=== PATIENT | female | born 1945 | race Caucasian/White ===

== ENCOUNTER → 2017-04-09 12:52 | Outpatient (CLI) | payer MEDICARE, BC, SELFPAY ==
[2017-04-09 11:59] VITALS: BP 134/60; BMI 36.8
[2017-04-09 13:49] LABS: Anion Gap 8 (5-15); BUN 15 mg/dL (7-18); BUN/Creat Ratio 16.6 RATIO (10-20); Calcium,Total 9.2 mg/dL (8.5-10.1); Chloride 104 mmol/L (98-107); EST Glomerular Filtration Rate 65 mL/min (>60); Est Glom Filt Rate - Afr Amer 78 mL/min (>60); Glucose 112 mg/dL (74-106); Potassium 4.4 mmol/L (3.5-5.1); Sodium Level 137 mmol/L (136-145)
[2017-04-09 13:59] LABS: BNP,B-Type NATRIURETIC PEPTIDE 71.1 pg/mL (0-100)
== END ==
PROVIDERS: Family Provider Internal Medicine; PCP Internal Medicine; Visit Provider Internal Medicine Cardiovascular Disease
DX: R06.02 Shortness of breath (principal)
CPT/HCPCS: 36415; 80048; 83880

== ENCOUNTER → 2017-05-07 13:00 | Outpatient (CLI) | payer MEDICARE, BC, SELFPAY ==
[2017-04-09 11:59] VITALS: BP 134/60; BMI 36.8
--- NOTE | 2017-05-07 13:04 | ECHOD_ITS ---
Reason For Study: DYSPNEA Procedure This was a 2D Doppler, Color Flow transthoracic echocardiogram. Exam performed in department. Left Ventricle Normal LV size. Left ventricular systolic function is normal. The estimated ejection fraction is 60 %. Transmitral and pulmonary venous doppler flow suggestive of elevated left atrial pressure. Transmitral diastolic flow velocities suggest mild (stage 1) diastolic dysfunction (reversed pattern). No regional wall motion abnormalities noted. Right Ventricle Normal RV size. Normal systolic function. Atria Normal left atrium. Normal right atrium. Mitral Valve Normal mitral valve. Tricuspid Valve Normal tricuspid valve. Mild to moderate (1-2+) tricuspid valve insufficiency. Pulmonary artery systolic pressure is 62 mmHg. Moderate pulmonary hypertension. Aortic Valve Normal aortic valve. Trisinus/trileaflet aortic valve. Pulmonic Valve Normal pulmonic valve. Great Vessels Normal aortic root. The pulmonary artery is normal size. Normal inferior vena cava. Pericardium/Pleural No pericardial effusion. Medication 22 gauge I.V. with prn adaptor inserted into right arm. Diluted definity 3ml given slow IV push to enhance endocardial definition. MMode/2D Measurements & Calculations LVIDd: 5.0 cm IVSd: 0.97 cm Ao root diam: 2.8 cm LVIDs: 3.4 cm LVPWd: 0.99 cm LA dimension: 3.7 cm RVDd: 3.0 cm FS: 33.1 % LAV(MOD-bp): 54.4 ml EDV(MOD-sp4): 90.9 ml EDV(MOD-sp2): 68.6 ml LAV(MOD-bp) Indexed: 26.5 ml/m2 ESV(MOD-sp4): 24.5 ml EF(MOD-sp2): 63.3 % LAV(MOD-sp2): 44.4 ml EF(MOD-sp4): 73.1 % LAV(MOD-sp4): 59.7 ml SV(MOD-sp4): 66.4 ml SV(MOD-sp2): 43.4 ml LA A4 area: 20.6 cm2 RA A4 area: 18.2 cm2 Doppler Measurements & Calculations MV E max precious: 63.8 cm/sec Ao V2 max: 163.0 cm/sec LV V1 max: 135.0 cm/sec MV A max precious: 92.3 cm/sec Ao max P.6 mmHg LV V1 max P.3 mmHg MV E/A: 0.69 TR max precious: 379.0 cm/sec TR max P.5 mmHg Interpretation Summary Normal LV size. Left ventricular systolic function is normal. The estimated ejection fraction is 60 %. Transmitral and pulmonary venous doppler flow suggestive of elevated left atrial pressure. Transmitral diastolic flow velocities suggest mild (stage 1) diastolic dysfunction (reversed pattern). Moderate pulmonary hypertension. Ordering Physician: Jonatan Barrios Referring Physician: CELINA SIDDIQUI Performed By: Nickie Sales, RDCS, RVT
== END ==
PROVIDERS: Family Provider Internal Medicine; PCP Internal Medicine; Visit Provider Internal Medicine Cardiovascular Disease
DX: R07.9 Chest pain, unspecified (principal); R06.00 Dyspnea, unspecified
CPT/HCPCS: 93306; Q9957; A4216; C8929

== ENCOUNTER → 2017-09-27 12:19 | Outpatient (CLI) | payer MEDICARE, BC, SELFPAY ==
[2017-09-27 13:53] VITALS: PULSE 100; PULSE 101; PULSE 102; PULSE 62; PULSE 71; PULSE 92; PULSE 94; O2SAT 95; O2SAT 96; O2SAT 97; O2SAT 98
--- NOTE | 2017-09-27 15:23 | WT_ITS ---
PSN 6 Minute Walk Test - 6 Minute Walk Test 6 Minute Walk Test: 6 Minute Walk Test PSN:6-Minute Walk Test Start: 09/27/17 13: 53 Freq: Status: Active Protocol: RESP.6MINW Document 09/27/17 13:53 [facility] (Rec: 09/27/17 14:24 [facility] [id number]) 6 Minute Walk Test Date Performed 09/27/17 Time Performed 12:30 Height 5 ft 5.5 in Weight: 98.43 kg Weight in Pounds 217.[address]: Bessy Lundberg FIO2 (% Oxygen) 21 Assistive device used: None Pre-test Oxygen Delivery Method Room Air Pulse Ox (%) 95 Pulse Rate (60-100 beats/min) 71 Dyspnea Mohamud Scale (0-10) 1 1st minute Oxygen Delivery Method Room Air Pulse Ox (%) 95 Pulse Rate (60-100 beats/min) 92 Dyspnea Mohamud Scale (0-10) 2 Reported Symptoms Increased Work of Breathing 2nd minute Oxygen Delivery Method Room Air Pulse Ox (%) 98 Pulse Rate (60-100 beats/min) 94 Dyspnea Mohamud Scale (0-10) 2 Reported Symptoms Increased Work of Breathing 3rd minute Oxygen Delivery Method Room Air Pulse Ox (%) 97 Pulse Rate (60-100 beats/min) 100 Dyspnea Mohamud Scale (0-10) 3 Reported Symptoms Increased Work of Breathing 4th minute Oxygen Delivery Method Room Air Pulse Ox (%) 98 Pulse Rate (60-100 beats/min) 102 H Dyspnea Mohamud Scale (0-10) 3 Reported Symptoms Increased Work of Breathing 5th minute Oxygen Delivery Method Room Air Pulse Ox (%) 98 Pulse Rate (60-100 beats/min) 101 H Dyspnea Mohamud Scale (0-10) 3 Reported Symptoms Increased Work of Breathing 6th minute Oxygen Delivery Method Room Air Pulse Ox (%) 97 Pulse Rate (60-100 beats/min) 102 H Dyspnea Mohamud Scale (0-10) 3 Reported Symptoms Increased Work of Breathing Post-test Oxygen Delivery Method Room Air Pulse Ox (%) 96 Pulse Rate (60-100 beats/min) 62 Dyspnea Mohamud Scale (0-10) 1 Full Laps Walked 13 Partial Lap, Number of Tiles Walked 36 Total Distance Walked (ft) 803 - Interpretation Interpretation: The patient was able to ambulate 803 feet over the course of 6 minutes on room air with no assistive devices or breaks taken. Patient experienced no significant desaturation and had a peak heart rate of 102 bpm. These findings are consistent with a musculoskeletal limitation exercise tolerance. - Recommendations Recommendations: No supplemental oxygen is indicated at this time.
== END ==
PROVIDERS: Family Provider Internal Medicine; PCP Internal Medicine; Visit Provider Nurse Practitioner Acute Care
DX: R06.02 Shortness of breath (principal)
CPT/HCPCS: 94618

== ENCOUNTER → 2017-10-02 10:04 | Outpatient (CLI) | payer MEDICARE, BC, SELFPAY ==
--- NOTE | 2017-10-02 13:57 | PFT ---
INTRODUCTION: The patient is a 72-year-old female that presents for pulmonary function testing secondary to a diagnosis of shortness of breath. Respiratory therapy reports good patient effort. Bronchodilators were used during testing. INTERPRETATION: Forced expiration spirometry demonstrates no evidence of a large airways obstructive ventilatory defect. There was no significant response to aerosolized bronchodilators. Spirograms are of good quality do not plateau indicating slow emptying of the lungs. Body plethysmography was performed and reveals a decreased TLC to 4.09 L, 80% of predicted, indicative of a mild restrictive ventilatory defect. The remainder of the lung volumes are symmetrically reduced. Diffusing capacity by single breath CO is mildly reduced at 67% of predicted. IMPRESSION: These pulmonary function studies demonstrate the presence of a mild restrictive ventilatory defect with a symmetric reduction in diffusing capacity.
== END ==
PROVIDERS: Family Provider Internal Medicine; PCP Internal Medicine; Visit Provider Nurse Practitioner Acute Care
DX: R06.02 Shortness of breath (principal)
CPT/HCPCS: 94060; 94726; 94729

== ENCOUNTER → 2017-10-18 13:56 | Outpatient (CLI) | payer MEDICARE, BC, SELFPAY ==
[2017-10-18 15:53] LABS: BNP,B-Type NATRIURETIC PEPTIDE 66.3 pg/mL (0-100)
== END ==
PROVIDERS: Family Provider Internal Medicine; PCP Internal Medicine; Visit Provider Physician Assistant Medical
DX: R06.02 Shortness of breath (principal)
CPT/HCPCS: 36415; 83880

== ENCOUNTER → 2018-05-14 13:07 | Outpatient (CLI) | payer MEDICARE, BC, SELFPAY ==
[2018-04-25 10:04] VITALS: BMI 36.4
--- NOTE | 2018-05-14 13:08 | ECHOD_ITS ---
Version 2 Reason For Study: [HTN Procedure This was a 2D Doppler, Color Flow transthoracic echocardiogram. Exam performed in department. Left Ventricle Normal LV size. Left ventricular systolic function is normal. The estimated ejection fraction is 55 %. Stage 1 diastolic dysfunction. No regional wall motion abnormalities noted. Right Ventricle Normal RV size. Normal systolic function. Atria Normal left atrium. Normal right atrium. Mitral Valve Normal mitral valve. Trivial mitral valve insufficiency. Tricuspid Valve Normal tricuspid valve. Mild (1+) tricuspid valve insufficiency. Pulmonary artery systolic pressure is 32 mmHg. Aortic Valve The aortic valve is not well visualized. Pulmonic Valve Normal pulmonic valve. Great Vessels Normal aortic root. The pulmonary artery is normal size. Normal inferior vena cava. Pericardium/Pleural No pericardial effusion. MMode/2D Measurements & Calculations LVIDd: 4.8 cm IVSd: 1.1 cm Ao root diam: 2.7 cm LVIDs: 3.5 cm LVPWd: 1.1 cm RVDd: 3.4 cm FS: 28.5 % LAV(MOD-bp): 59.0 ml LA A4 area: 20.2 cm2 LA dimension(2D): 3.8 cm LAV(MOD-bp) Indexed: 28.8 ml/m2 LAV(MOD-sp2): 58.5 ml LAV(MOD-sp4): 57.0 ml RA A4 area: 19.6 cm2 Doppler Measurements & Calculations MV E max dawit: 73.2 cm/sec Lat Peak E' Dawit: 9.3 cm/sec Med Peak E' Dawit: 7.4 cm/sec MV A max dawit: 90.0 cm/sec E/E' lat: 7.9 E/E' med: 9.9 MV E/A: 0.81 Ao V2 max: 165.1 cm/sec LV V1 max: 127.6 cm/sec PA V2 max: 101.6 cm/sec Ao max P.9 mmHg LV V1 max P.5 mmHg TR max dawit: 261.9 cm/sec TR max P.4 mmHg Interpretation Summary Normal LV size. Left ventricular systolic function is normal. The estimated ejection fraction is 55 %. Stage 1 diastolic dysfunction. Mild (1+) tricuspid valve insufficiency. Pulmonary artery systolic pressure is 32 mmHg. The pulmonary pressures are much improved Ordering Physician: Jonatan Barrios Referring Physician: Darby Tobias Performed By: eJane Harris RDCS, RVT
== END ==
PROVIDERS: Family Provider Internal Medicine; PCP Internal Medicine; Referring Provider Internal Medicine Cardiovascular Disease; Visit Provider Internal Medicine Cardiovascular Disease
DX: I27.21 Secondary pulmonary arterial hypertension (principal)
CPT/HCPCS: 93306

== ENCOUNTER 2019-01-01 09:51 | Inpatient (IN) | payer MEDICARE, BC, SELFPAY ==
[2018-04-25 10:04] VITALS: BMI 36.4
[2019-01-01] VITALS (12 sets, daily range): BP systolic 126–164; BP diastolic 73–85; PULSE 78–85; RESP 16–20; TEMP 36.6–36.7; O2SAT 86–95; BMI 35.7; BMI 36.3; BMI 36.4
--- NOTE | 2019-01-01 10:02 | CT_ITS ---
STUDY: CTA CHEST REASON FOR EXAM: Female, 73 years old. Shortness of breath, history of pulmonary embolism. RADIATION DOSAGE (If Supplied By Facility): CTDIvol = ( 14.83 ) mGy, DLP = ( 490.91 ) mGycm TECHNIQUE: The examination was performed with the intravenous administration of IV Isovue 370 75. Post-processing of the angiographic images was performed, with multiplanar reformation and 3D reconstruction. Individualized dose optimization techniques were used for this CT. COMPARISON: 02/23/2017 FINDINGS: Normal enhancement of the main pulmonary artery and right and left pulmonary arteries. Normal enhancement of the bilateral peripheral pulmonary arteries. Multiple filling defects within segmental branches throughout both lungs involving the upper and lower lobes consistent with pulmonary emboli. There is atherosclerotic calcification of the aortic arch with tortuosity. There is no demonstrated aortic dissection. Normal heart and pericardium. There are calcifications of the coronary arteries. Normal mediastinum. Normal hilar regions. Normal visualized trachea and bronchi. The lungs are well expanded. Interval development of an 8 mm thick related nodule in the anterior right lower lobe the lungs on image 129 worrisome for bronchial carcinoma in correlation with PET CT scan is recommended. Follow-up CT the chest is recommended in 6 months document stability. Normal pleura. Normal chest wall structures. Normal osseous structures. Diffusely decreased attenuation the hepatic parenchyma consistent with fatty infiltration. CT/CTA Chest W/WO Contrast IMPRESSION: 1. Positive for multiple segmental and subsegmental pulmonary emboli bilaterally. 2. Interval development of 8 mm spiculated nodule in the anterior right lower lobe the lungs worrisome for bronchial carcinoma in correlation with PET CT scan is recommended. Follow-up CT the chest is recommended in 6 months document stability to 3. Fatty infiltration liver. Electronically Signed: Bob Osborn MD at 11:34 EDT Tel , Service support ,
--- NOTE | 2019-01-01 10:02 | EKG12_ITS ---
Test Reason : SOB Blood Pressure : / mmHG Vent. Rate : 080 BPM Atrial Rate : 080 BPM P-R Int : 184 ms QRS Dur : 088 ms QT Int : 408 ms P-R-T Axes : 062 -84 094 degrees QTc Int : 470 ms Normal sinus rhythm Left axis deviation Poor R Wave Progression Inferior infarct , age undetermined Abnormal ECG Confirmed by CHAY CHILDRESS, GEETA ([id number]), supervising editor trailer BERTHA PHILIP ([id number]) on 01/05/2019 9:26:02 AM Referred By: Kranthi Agudelo Confirmed By:GEETA CARTWRIGHT MD
--- NOTE | 2019-01-01 10:15 | ED.DCSUM_ITS ---
- ER Visit Summary Date of Service: 01/01/19 Chief Complaint: Shortness of breath History of Present Illness: The patient is a 73 F who presents with shortness of breath. She states is been getting worse gradually over the past 3 days. Is worse with exertion. Gets better with rest. She does not wear home oxygen. She denies a cough or rhinorrhea. No fevers. She does have a fullness in her chest. She denies any leg swelling. She does have a history of PE and at that time she was diagnosed with polycythemia. She was on Coumadin, but is not on this anymore. She is only on a baby aspirin a day. Denies any history of coronary disease but does have hypertension and high cholesterol. She is a non- smoker. Physical Examination: Vital signs reviewed. HEENT exam unremarkable. Heart is regular rate and rhythm without murmurs. Lungs are clear to auscultation. Abdomen is soft and nontender. Extremities reveal no edema. Peripheral pulses are equal. Skin exam normal. Neurologic exam normal. Test Results: EKG is sinus rhythm with rate of 80. There are nonspecific ST and T wave changes. Laboratory studies show a hemoglobin of 15.1. Creatinine 1.21. Troponin is 0.054. BNP 355. CTA of the chest reveals bilateral pulmonary emboli. There is also a spiculated nodule which is concerning as well. Emergency Department Course and Treatment: The patient was 87% on room air so supplemental oxygen was placed. She does have bilateral pulmonary emboli. I will start her on Lovenox here in the ED. She did was on Coumadin because she could not afford any of the other newer generation anticoagulants. I discussed with the hospitalist and we will admit the patient due to hypoxia Treatment Plan: [] Disposition: Admit Impression: Bilateral PE, hypoxia, elevated troponin This note was generated with [employer] dictation software. It may contain incorrect words, spelling, and punctuation that were not noted in review of the chart p rior to signing ED Disposition - Plan for ED Patient: Referrals: Darby Tobias MD [Primary Care Provider] -
[2019-01-01 10:31] LABS: Absolute Lymphocyte Count 1.74 X10^3/uL (0.83-4.51); Absolute Neutrophil Count 7.1 X10^3/uL (2.0-7.7); Basophil# 0.05 X10^3/uL; Basophil% 0.5 % (0-1); Eosinophil# 0.39 X10^3/uL; Eosinophils% 3.9 % (0-5); Hemoglobin 15.1 g/dL (12.0-15.0); Lymphocyte # 1.74 X10^3/ul (4.0); Lymphocyte % 17.4 % (19-41); Mean Corp Hgb Conc 32.1 g/dL (32-36); Mean Corpuscular Hgb 35.4 pg (27.0-32.0); Mean Corpuscular Volume 110.1 fL (81-99); Mean Platelet Vol. 10.4 fl (6.2-12.0); Monocyte# 0.61 X10^3/uL; Monocyte% 6.1 % (0-10); NRBC Flagged by Analyzer 0 % (0-5); Neutrophil # 7.12 X10^3/uL (2.7-7.7); Neutrophil % 71.3 % (47-70); Platelet Count 294 K/mm3 (150-450); RBC Distribution Width CV 15.3 % (11.6-14.6); RBC Distribution Width SD 62.4 fl (35.1-43.9); Red Blood Count 4.27 M/mm3 (4.2-5.4)
[2019-01-01 10:49] LABS: Anion Gap 8 (5-15); BUN 23 mg/dL (7-18); Chloride 105 mmol/L (98-107); Creatinine, Serum 1.21 mg/dL (0.55-1.02); EST Glomerular Filtration Rate 46 mL/min (>60); Est Glom Filt Rate - Afr Amer 56 mL/min (>60); Estimated Creatinine Clearance 36.15 ml/min; Glucose 132 mg/dL (74-106); Potassium 3.9 mmol/L (3.5-5.1); Sodium Level 139 mmol/L (136-145)
[2019-01-01 10:53] LABS: BNP,B-Type NATRIURETIC PEPTIDE 355.7 pg/mL (0-100)
--- NOTE | 2019-01-01 11:55 | NURSING ---
DR WILCOX FOR DR TIAN
--- NOTE | 2019-01-01 11:58 | NURSING ---
PCU BILATERAL PE, HYPOXIA KOTSONIS
[2019-01-01] MEDS: Enoxaparin 100 MG/ML Syringe SC (12:09)
--- NOTE | 2019-01-01 12:29 | ECHOD_ITS ---
Reason For Study: EMBOLI Procedure This was a 2D Doppler, Color Flow transthoracic echocardiogram. The study was technically difficult. Exam performed portable in patient room. Left Ventricle Normal LV size. D shaped septum in systole and diastole. The estimated ejection fraction is 70 %. Diastolic function is indeterminate. Right Ventricle Severely dilated right ventricle. Severe global right ventricular systolic dysfunction. Atria Normal left atrium. The right atrium is mildly enlarged. No doppler evidence for ASD. Mitral Valve There is no mitral valve stenosis. No mitral valve insufficiency. Tricuspid Valve There is no tricuspid stenosis. Mild tricuspid valve insufficiency. Severe pulmonary hypertension. Pulmonary artery systolic pressure is 85 mmHg. Aortic Valve Trisinus/trileaflet aortic valve. There is no aortic stenosis. No aortic valve insufficiency. Pulmonic Valve There is no pulmonic valvular stenosis. No pulmonic valve insufficiency. Great Vessels Normal aortic root. Pericardium/Pleural No pericardial effusion. Medication Definity deferred due to elevated PAP. MMode/2D Measurements & Calculations LVIDd: 4.0 cm IVSd: 1.2 cm Ao root diam: 2.6 cm LVIDs: 3.0 cm LVPWd: 1.1 cm RVDd: 5.0 cm FS: 23.6 % LAV(MOD-bp): 30.0 ml LA A4 area: 12.7 cm2 LA dimension(2D): 3.3 cm LAV(MOD-bp) Indexed: 14.7 ml/m2 LAV(MOD-sp2): 32.9 ml LAV(MOD-sp4): 25.0 ml RA A4 area: 15.2 cm2 Time Measurements MV dec time: 0.20 sec Doppler Measurements & Calculations MV E max dawit: 42.2 cm/sec Lat Peak E' Dawit: 6.6 cm/sec Med Peak E' Dawit: 4.6 cm/sec MV A max dawit: 70.7 cm/sec E/E' lat: 6.3 E/E' med: 9.2 MV E/A: 0.60 Ao V2 max: 139.6 cm/sec LV V1 max: 121.2 cm/sec TR max dawit: 440.5 cm/sec Ao max P.8 mmHg LV V1 max P.9 mmHg TR max P.6 mmHg Interpretation Summary The estimated ejection fraction is 70 %. Diastolic function is indeterminate. Severely dilated right ventricle. Severe global right ventricular systolic dysfunction. Mild tricuspid valve insufficiency. Severe pulmonary hypertension. Pulmonary artery systolic pressure is 85 mmHg. Ordering Physician: Kranthi Agudelo Referring Physician: CELINA SIDDIQUI Performed By: Nickie Sales, RDCS, RVT
--- NOTE | 2019-01-01 12:38 | CASEMGMT ---
RN CM Assessment Presentation: Bilateral PE, Hypoxia Intro role of CM and purpose of RN CM assessment to patient and her daughter (works as Director, HIM @ [facility] [facility]). Demographics, PCP and Pharmacy verified. Pt states she was on Coumadin until 12/05/18 and has not been on anticoagulant since. Pt updated that Xarelto is in her pharmacy formulary with $45/30 day supply cost. Savings card can be given to pt also. PCP: Dr. Tobias, [facility] Specialists: Dr. Barrios, Cardiology; Dr. Arenas; Pulmonology Preferred Pharmacy: [facility]. Insurance: [employer] Prescription Benefit: yes.Call to [facility] ([facility] pharmacy co). Per Wyatt, pharmacy tapper helper- [facility] Retail pharmacy is [facility] ([facility]), Xarelto is Tier 3 medication with $45/30 day supply copay. Prescription limitation is 60 tablets for twice daily dosing, no prior authorization is needed. [employer] Medicare Rx Plan RxBin: [id number] RxPCN: [id number] RxGrp: [id number] LNOK: Daughter, Geetha Louise Living Arrangements: Lives in one story home, 1 step into home. Pt states she is independent in ADL, home care and no concerns re: care needs on dc. Transportation: Drives DME: has cane, Cpap. Denies using ambulatory assistive devices. No Home Oxygen prior to admission. If needed, pt states she prefers [facility]. Call to [facility] @ [facility]- they do service [facility]. HHC: none Patient DC goals: Home DC PLAN: Home. May need Home oxygen testing if continues on O2. Jessa MELENDEZN RN ACM
--- NOTE | 2019-01-01 16:16 | HP.PCM_ITS ---
History of Present Illness Date of Admission: 01/01/19 Chief Complaint: SOB The patient is a 73 year old F with a PMH as below who presents with shortness of breath. She says that it started on Saturday to get worse, and has worsened over the last 2 days. She does generally have shortness of breath at baseline but not like this. She presented to the ER where she was found to have bilateral peripheral PEs. Also of note she had an 8 mm spiculated nodule in the anterior right lower lobe of the lung, she denies having a history of smoking however she does have a significant secondhand smoking history. She also has a history of prior PEs, she has been on Coumadin and she just stopped that in early December. It was felt that her initial PEs were due to her polycythemia that she is currently being treated with hydroxyurea. She denies any chest pain or lightheadedness. Troponin was slightly elevated 0.054, this is less than what she has been in the past, and she also had a BNP of 355.7. Past Medical History Past Medical History (Chronic Problems): Chronic Problems (Last Reviewed 04/25/18 @ 10:17 by Jonatan Barrios MD) Essential (primary) hypertension (Chronic) Secondary pulmonary arterial hypertension (Chronic) RVSP 62 mmHg SHIRLEY (obstructive sleep apnea) (Chronic) Nonrheumatic tricuspid (valve) insufficiency (Chronic) Right ventricular diastolic dysfunction (Chronic) Pulmonary embolism, bilateral (Chronic) Obesity (BMI 30-39.9) (Chronic) Juvenile rheumatic fever (Chronic) HLD (hyperlipidemia) (Chronic) Medical History: Medical History (Last Reviewed 04/25/18 @ 10:17 by Jonatan Barrios MD) Essential (primary) hypertension (Chronic) I10 Secondary pulmonary arterial hypertension (Chronic) I27.21 RVSP 62 mmHg SHIRLEY (obstructive sleep apnea) (Chronic) G47.33 Nonrheumatic tricuspid (valve) insufficiency (Chronic) I36.1 Right ventricular diastolic dysfunction (Chronic) I51.89 Pulmonary embolism, bilateral (Chronic) I26.99 Obesity (BMI 30-39.9) (Chronic) E66.9 Hypercoagulable state (Suspected) D68.59 Juvenile rheumatic fever (Chronic) I00 HLD (hyperlipidemia) (Chronic) E78.5 Hepatic steatosis K76.0 High blood hemoglobin A2 D56.1 Osteoarthritis M19.90 Polycythemia vera D45 Elevated troponin (Resolved) R74.8 Hypoxemia (Inactive) R09.02 Allergies No Known Allergies Allergy (Verified 01/01/19 09:54) Home Medications: Ambulatory Orders Medication Instructions Recorded Cyclobenzaprine HCl 10 mg PO DAILY PRN 02/22/15 Pravastatin [Pravachol] 40 mg PO QHS 02/22/15 Fluoxetine [Prozac] 20 mg PO DAILY 02/23/17 naproxen sodium 220 mg tablet 220 mg PO QDAY tab 04/09/17 hydroxyurea 500 mg capsule 1,000 mg PO MOWESA 09/23/17 ondansetron HCl 4 mg tablet 4 mg PO BREAKFAST 09/23/17 ferrous sulfate 325 mg (65 mg 325 mg PO DAILY tab 04/25/18 iron) tablet Aspirin 81 mg PO QHS 01/01/19 Hydroxyurea 500 mg PO SUTUTHFR 01/01/19 Metoprolol Succinate [Toprol Xl] 50 mg PO QHS 01/01/19 Surgical History: Surgical History (Last Reviewed 04/25/18 @ 10:17 by Jonatan Barrios MD) History of appendectomy (Resolved) Z98.890, Z90.49 History of bilateral knee replacement Z96.653 History of cataract extraction (Resolved) Z98.49 History of cataract surgery Z98.49 History of left knee replacement (Resolved) Z96.652 History of right hip replacement (Resolved) Z96.641 History of right hip replacement Z96.641 History of right knee joint replacement (Resolved) Z96.651 S/P tendon repair Z98.890 Surgical History: appendectomy, cataract - BL, total hip arthroplasty - Right, total knee arthroplasty - Bilateral, - - remote breast biopsy-negative Psychiatric History: No pertinent psych hx [employer] 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 Maternal Family History: Family History (Last Reviewed 04/25/18 @ 10:17 by Jonatan Barrios MD) Mother Arthritis Son Pulmonary emboli Daughter Pulmonary emboli History Items: - - Mother had crippling arthritis that sounds like rheumatoid but the patient could not confirm this. Her son also has bad arthritis. Review of Systems Constitutional: Denies: Chills, Fever, Weight Change HEENT: Denies: Head Aches, Sinus Congestion, Sinus Drainage Cardiovascular: Denies: Chest Pain, Palpitations Respiratory: Reports: Shortness of Breath. Denies: Cough, Shortness of breath at rest, Sputum production Gastrointestinal: Denies: Abdominal Pain, Nausea, Vomiting Genitourinary: Denies: Dysuria Musculoskeletal: Denies: Joint Pain, Joint Tenderness Skin: Denies: Rash, Wounds Neurological: Denies: Numbness, Tingling, Focal weakness Psychiatric: Denies: Anxiety, Depression, Homicidal Ideations, Suicidal Ideations Hematologic/ Lymphatic: Denies: Easy Bruising, Easy Bleeding VTE Information - Inpt Only VTE Present on Admission: No - Physical Exam Vitals/I&O's: Vital Signs Temp Pulse Resp BP Pulse Ox 98.0 F 82 16 150/73 H 95 01/01/19 13:01 01/01/19 14:58 01/01/19 13:01 01/01/19 13:01 01/01/19 13:01 Oxygen Flow Rate (L/min) 2 Oxygen Delivery Method Nasal Cannula Weight: 218 lb 7.649 oz Body Mass Index (BMI) 36.3 General: Alert, Oriented x3, Cooperative, No apparent distress HEENT: Atraumatic, PERRLA, EOMI, Normocephalic Oral: Moist Mucosa Neck: Supple, No JVD Lungs: Clear to auscultation, Normal air movement, No rhonchi, No wheeze, No rales, Diminished Cardiovascular: Regular rate, Regular Rhythm, Normal S1, Normal S2, No murmurs Abdomen: Soft, Non Tender, Non-Distended, No Hepato-splenomegaly Extremities: No edema, Capillary Refill Less than 3 Seconds Skin: No rashes, No breakdown Neurological: Neuro grossly intact, Sensory exam intact to light touch and pain Psych/Mental Status: Normal Affect, Appropriate Laboratory Results 01/01/19 10:23: WBC 10.0, RBC 4.27, Hgb 15.1 H, Hct 47.0, MCV 110.1 H, MCH 35.4 H, MCHC 32.1, RDW Std Deviation 62.4 H, RDW Coeff of Iveth 15.3 H, Plt Count 294, MPV 10.4, Immature Gran % (Auto) 0.800, Neut % (Auto) 71.3 H, Lymph % (Auto) 17.4 L, [place] % (Auto) 6.1, Eos % (Auto) 3.9, Baso % (Auto) 0.5, Absolute Neuts (auto) 7.1, Absolute Lymphs (auto) 1.74, Nucleated RBC % 0 01/01/19 10:23: Sodium 139, Potassium 3.9, Chloride 105, Carbon Dioxide 26.0, Anion Gap 8, BUN 23 H, Creatinine 1.21 H, Estim Creat Clear Calc 36.15, Est GFR (MDRD) Af Amer 56 L, Est GFR (MDRD) Non-Af 46 L, BUN/Creatinine Ratio 19.0, Glucose 132 H, Calcium 9.0, Troponin I 0.054 H 01/01/19 10:23: B-Natriuretic Peptide 355.7 H Current Medications Rivaroxaban (Xarelto) 15 mg PO BIDCM EVELYN Sodium Chloride () 10 - 40 ml IV UD PRN PRN Reason: SALINE FLUSH Assessment/Plan All Active Problems (Last Reviewed 04/25/18 @ 10:17 by Jonatan Barrios MD) Elevated troponin (Resolved) History of appendectomy (Resolved) History of cataract extraction (Resolved) History of left knee replacement (Resolved) History of right hip replacement (Resolved) History of right knee joint replacement (Resolved) 1. Bilateral PEs/severe pulmonary hypertension/acute hypoxic respiratory insufficiency -She was given a dose of therapeutic Lovenox and in the ER, will transition her to Xarelto 15 mg p.o. twice daily for the followed by 20 mg nightly -Continue with nasal cannula at 2 L, she was 88% on room air down in the ER -Echo was obtained today that showed a normal EF of 70% with a severe pulmonary hypertension with a RVSP of 85 mmHg. Compared to her previous echo in May of this year, her right ventricular systolic pressure was only 32 mmHg. This is consistent with a significant PE burden. Also she has significant right-sided ventricular dilatation. 2. Right lung nodule -She has an 8 mm spiculated lung mass on the right -She would like to see [facility] hematology for her polycythemia, therefore she can follow-up with them as well for this mass and would likely need a repeat CT scan in 6 months 3. Polycythemia -She has been needing to be getting phlebotomy initially every week now she is every couple weeks. -Continue with hydroxyurea and aspirin 4. HTN/HLD -Pressures are stable - continue with metoprolol and pravastatin DVT: Xarelto Code Visit Inpatient E&M: 33434 Init Hosp L3
[2019-01-01] MEDS: Rivaroxaban 15 MG Tablet PO (20:08)
[2019-01-01] MEDS: Pravastatin 40 MG Tablet PO (21:44)
[2019-01-01] MEDS: Aspirin 81 MG TAB.CHEW PO (21:44)
[2019-01-01] MEDS: Metoprolol(XL)Succ 50 MG Tablet PO (21:44)
[2019-01-02] VITALS (12 sets, daily range): BP systolic 120–153; BP diastolic 67–79; PULSE 67–88; RESP 14–20; TEMP 36.6–36.7; O2SAT 86–97
[2019-01-02 06:29] LABS: Absolute Lymphocyte Count 1.85 X10^3/uL (0.83-4.51); Absolute Neutrophil Count 5.9 X10^3/uL (2.0-7.7); Basophil# 0.05 X10^3/uL; Basophil% 0.6 % (0-1); Eosinophil# 0.48 X10^3/uL; Eosinophils% 5.4 % (0-5); Hematocrit 46.3 % (37-47); Hemoglobin 14.7 g/dL (12.0-15.0); Lymphocyte # 1.85 X10^3/ul (4.0); Lymphocyte % 20.7 % (19-41); Mean Corp Hgb Conc 31.7 g/dL (32-36); Mean Corpuscular Hgb 35.7 pg (27.0-32.0); Mean Corpuscular Volume 112.4 fL (81-99); Monocyte# 0.56 X10^3/uL; Monocyte% 6.3 % (0-10); NRBC Flagged by Analyzer 0 % (0-5); Neutrophil # 5.94 X10^3/uL (2.7-7.7); Neutrophil % 66.3 % (47-70); Platelet Count 291 K/mm3 (150-450); RBC Distribution Width CV 15.3 % (11.6-14.6); RBC Distribution Width SD 63.7 fl (35.1-43.9); Red Blood Count 4.12 M/mm3 (4.2-5.4); White Blood Count 8.9 K/mm3 (4.4-11.0)
[2019-01-02 06:56] LABS: Anion Gap 6 (5-15); BUN 26 mg/dL (7-18); BUN/Creat Ratio 24.1 RATIO (10-20); Calcium,Total 9.1 mg/dL (8.5-10.1); Chloride 105 mmol/L (98-107); Creatinine, Serum 1.08 mg/dL (0.55-1.02); EST Glomerular Filtration Rate 53 mL/min (>60); Est Glom Filt Rate - Afr Amer 64 mL/min (>60); Glucose 115 mg/dL (74-106); Sodium Level 139 mmol/L (136-145)
[2019-01-02] MEDS: Hydroxyurea 500 MG Capsule PO (08:43)
[2019-01-02] MEDS: Rivaroxaban 15 MG Tablet PO ×2 (08:43→16:33)
[2019-01-02] MEDS: Ondansetron ODT 4 MG Tablet PO (08:43)
[2019-01-02] MEDS: Ferrous Sulfate 325 MG Tablet PO (08:43)
[2019-01-02] MEDS: FLUoxetine 20 MG Capsule PO (08:43)
--- NOTE | 2019-01-02 13:42 | CASEMGMT ---
Green sheet with instructions and [employer] script(per pt request) on chart for possible Home oxygen, if needed, at discharge. Pt given Xarelto free 30 day coupon at this time and pt updated on all at this time, voices understanding. Pt states no further questions/concerns/needs at this time. Per Jessa NORIEGA CM, pt's daughter is transferring her oncology care to Drs. Allen/Alexa here at [facility]. Jyoti NORIEGA CM
--- NOTE | 2019-01-02 13:54 | CASEMGMT ---
SW let pt know that LW/POA forms are not on file, pt will ask her daughter to bring them in to place on the chart. SAMUEL Patrick
--- NOTE | 2019-01-02 19:26 | PCM.PN.HOSP ---
Subjective: Breathing much better today, denies any tightness or pressure. Vitals/I&O's: Vital Signs Temp Pulse Resp BP Pulse Ox 98.0 F 78 16 137/67 H 92 01/02/19 15:10 01/02/19 15:10 01/02/19 15:10 01/02/19 15:10 01/02/19 15:10 Oxygen Flow Rate (L/min) [ 4 AMBULATION with Oxygen] Oxygen Flow Rate (L/min) 2 Oxygen Delivery Method Nasal Cannula Weight: 218 lb 7.649 oz Body Mass Index (BMI) 36.3 Intake and Output for Last 24 Hours 12/31/18 01/01/19 01/02/19 23:59 23:59 23:59 Intake Total 450 / 450 950 / 950 Balance 450 / 450 950 / 950 General: Alert, Oriented x3, Cooperative, No apparent distress HEENT: Atraumatic, PERRLA, EOMI, Normocephalic Oral: Moist Mucosa Neck: Supple, No JVD Lungs: Clear to auscultation, Normal air movement, No rhonchi, No wheeze, No rales, Diminished Cardiovascular: Regular rate, Regular Rhythm, Normal S1, Normal S2, No murmurs Abdomen: Soft, Non Tender, Non-Distended, No Hepato-splenomegaly Extremities: No edema, Capillary Refill Less than 3 Seconds Skin: No rashes, No breakdown Neurological: Neuro grossly intact, Sensory exam intact to light touch and pain Psych/Mental Status: Normal Affect, Appropriate Laboratory Results 01/02/19 06:00: WBC 8.9, RBC 4.12 L, Hgb 14.7, Hct 46.3, MCV 112.4 H, MCH 35.7 H, MCHC 31.7 L, RDW Std Deviation 63.7 H, RDW Coeff of Iveth 15.3 H, Plt Count 291, MPV 11.0, Immature Gran % (Auto) 0.700, Neut % (Auto) 66.3, Lymph % (Auto) 20.7, [place] % (Auto) 6.3, Eos % (Auto) 5.4 H, Baso % (Auto) 0.6, Absolute Neuts (auto) 5.9, Absolute Lymphs (auto) 1.85, Nucleated RBC % 0 01/02/19 06:00: Sodium 139, Potassium 4.0, Chloride 105, Carbon Dioxide 28.0, Anion Gap 6, BUN 26 H, Creatinine 1.08 H, Estim Creat Clear Calc 40.50, Est GFR (MDRD) Af Amer 64, Est GFR (MDRD) Non-Af 53 L, BUN/Creatinine Ratio 24.1 H, Glucose 115 H, Calcium 9.1 Current Medications Aspirin (Aspirin, Baby) 81 mg PO QHS [facility] Last Admin: 01/01/19 21:44 Dose: 81 mg Documented by: Ferrous Sulfate (Ferrous Sulfate) [facility] Last Admin: 01/02/19 08:43 Dose: 325 mg Documented by: Fluoxetine HCl (Prozac) 20 mg PO DAILY [facility] Last Admin: 01/02/19 08:43 Dose: 20 mg Documented by: Hydroxyurea (Hydrea) 1,000 mg PO MOWESA [facility] Hydroxyurea (Hydrea) [facility] Last Admin: 01/02/19 08:43 Dose: 500 mg Documented by: Metoprolol Succinate (Toprol Xl (Beta Amy)) 50 mg PO QHS [facility] Last Admin: 01/01/19 21:44 Dose: 50 mg Documented by: Ondansetron HCl (Zofran Odt) 4 mg PO BREAKFAST [facility] Last Admin: 01/02/19 08:43 Dose: 4 mg Documented by: Pravastatin Sodium (Pravachol) 40 mg PO QHS [facility] Last Admin: 01/01/19 21:44 Dose: 40 mg Documented by: Rivaroxaban (Xarelto) [facility] Last Admin: 01/02/19 16:33 Dose: 15 mg Documented by: Sodium Chloride () 10 - 40 ml IV UD PRN PRN Reason: SALINE FLUSH Medical Necessity - Tobacco Use Smoking Status: Never smoker Assessment/Plan All Active Problems (Last Reviewed 04/25/18 @ 10:17 by Jonatan Barrios MD) Elevated troponin (Resolved) History of appendectomy (Resolved) History of cataract extraction (Resolved) History of left knee replacement (Resolved) History of right hip replacement (Resolved) History of right knee joint replacement (Resolved) 1. Bilateral PEs/severe pulmonary hypertension/acute hypoxic respiratory insufficiency -She was given a dose of therapeutic Lovenox and in the ER, will transition her to Xarelto 15 mg p.o. twice daily for the followed by 20 mg nightly -Continue with nasal cannula at 2 L, she was 88% on room air down in the ER -Echo was obtained that showed a normal EF of 70% with a severe pulmonary hypertension with a RVSP of 85 mmHg. Compared to her previous echo in May of this year, her right ventricular systolic pressure was only 32 mmHg. This is consistent with a significant PE burden. Also she has significant right-sided ventricular dilatation. Given the lack of changes in her vital signs this was obviously very gradual change -She is maintaining her oxygen saturation on 2 L nasal cannula, when she ambulates she needs to increase that to 4. We will plan to discharge her tomorrow with oxygen 2. Right lung nodule -On initial read of her CT scan she had an 8 mm spiculated lung mass on the right anterior lower lobe -I discussed the case with radiology and it was felt that this could likely be followed as an outpatient in 6 months. We will have her see hematology/oncology for this nodule as well as her polycythemia in 1 to 2 weeks on discharge. 3. Polycythemia -She has been needing to be getting phlebotomy initially every week now she is every couple weeks. -Continue with hydroxyurea and aspirin 4. HTN/HLD -Pressures are stable - continue with metoprolol and pravastatin DVT: Xarelto Code Visit Inpatient E&M: 46659 Subs Hosp L2
[2019-01-02] MEDS: Metoprolol(XL)Succ 50 MG Tablet PO (21:23)
[2019-01-02] MEDS: Pravastatin 40 MG Tablet PO (21:23)
[2019-01-02] MEDS: Aspirin 81 MG TAB.CHEW PO (21:23)
[2019-01-03] VITALS (8 sets, daily range): BP systolic 124–129; BP diastolic 67–82; PULSE 60–76; RESP 16; TEMP 36.5–36.6; O2SAT 86–98
--- NOTE | 2019-01-03 08:01 | DCINST_ITS ---
You will use the following diet at home:: Regular Your food should be the consistency of: Regular Your liquids should be the consistency of: Regular/Thin Discharge Activity: Return to Normal Activity Call your doctor if you observe: Fever of 101 or Higher, Shortness of breath, Dizziness, Fainting spells, Swelling in the ankles, Chest pain, Increased palpitations (irregular heartbeat) Allergies/Adverse Reactions: Allergies No Known Allergies Allergy (Verified 01/01/19 09:54) Medications to take at Discharge Cyclobenzaprine HCl 10 mg PO DAILY PRN 02/22/15 Pravastatin [Pravachol] 40 mg PO QHS 02/22/15 Fluoxetine [Prozac] 20 mg PO DAILY 02/23/17 naproxen sodium 220 mg tablet 220 mg PO QDAY tab 04/09/17 hydroxyurea 500 mg capsule 1,000 mg PO MOWESA 09/23/17 ondansetron HCl 4 mg tablet 4 mg PO BREAKFAST 09/23/17 ferrous sulfate 325 mg (65 mg iron) tablet 325 mg PO DAILY tab 04/25/18 Aspirin 81 mg PO QHS 01/01/19 Hydroxyurea 500 mg PO SUTUTHFR 01/01/19 Metoprolol Succinate [Toprol Xl] 50 mg PO QHS 01/01/19 Rivaroxaban [Xarelto] 1 tab PO UD #51 tab 01/03/19 The following prescriptions were given: Rivaroxaban [Xarelto] 1 tab PO UD #51 tab Prescription Printed Primary Care Physician: Darby Tobias MD [Primary Care Provider] - Please follow up with your Primary Care Physician in: 3-5 days Test Results: Test results from this visit will be discussed in further detail at your follow- up appointment, if applicable. Please Follow Up With: Julian Bravo MD When: 1-2 weeks
--- NOTE | 2019-01-03 08:05 | DS.PCM_ITS ---
Discharge Date and Diagnosis Date of Admission: 01/01/19 Date of Discharge: 01/03/19 - Secondary Discharge Diagnosis Chronic Problems (Last Reviewed 04/25/18 @ 10:17 by Jonatan Barrios MD) Essential (primary) hypertension (Chronic) Secondary pulmonary arterial hypertension (Chronic) RVSP 62 mmHg SHIRLEY (obstructive sleep apnea) (Chronic) Nonrheumatic tricuspid (valve) insufficiency (Chronic) Right ventricular diastolic dysfunction (Chronic) Pulmonary embolism, bilateral (Chronic) Obesity (BMI 30-39.9) (Chronic) Juvenile rheumatic fever (Chronic) HLD (hyperlipidemia) (Chronic) Hospital Course and Treatment Imaging Results: CTA Chest: IMPRESSION: 1. Positive for multiple segmental and subsegmental pulmonary emboli bilaterally. 2. Interval development of 8 mm spiculated nodule in the anterior right lower lobe the lungs worrisome for bronchial carcinoma in correlation with PET CT scan is recommended. Follow-up CT the chest is recommended in 6 months document stability to 3. Fatty infiltration liver. Echo: Interpretation Summary The estimated ejection fraction is 70 %. Diastolic function is indeterminate. Severely dilated right ventricle. Severe global right ventricular systolic dysfunction. Mild tricuspid valve insufficiency. Severe pulmonary hypertension. Pulmonary artery systolic pressure is 85 mmHg. Consults: None Operations: None Procedures: 2-D Echocardiogram Summary of Care Provided: Per HPI: The patient is a 73 year old F with a PMH as below who presents with shortness of breath. She says that it started on Saturday to get worse, and has worsened over the last 2 days. She does generally have shortness of breath at baseline but not like this. She presented to the ER where she was found to have bilateral peripheral PEs. Also of note she had an 8 mm spiculated nodule in the anterior right lower lobe of the lung, she denies having a history of smoking however she does have a significant secondhand smoking history. She also has a history of prior PEs, she has been on Coumadin and she just stopped that in early December. It was felt that her initial PEs were due to her polycythemia that she is currently being treated with hydroxyurea. She denies any chest pain or lightheadedness. Troponin was slightly elevated 0.054, this is less than what she has been in the past, and she also had a BNP of 355.7. Hospital Course: 1. Bilateral PE/post severe pulmonary hypertension/acute hypoxic rest familia insu [id number] female has a history of polycythemia and had PEs about a year and a half ago at that time was started on Coumadin was doing well but that was stopped in December because it was felt that her polycythemia was under control and therefore she would not need anticoagulation any further. I however she presents with new bilateral pulmonary embolisms and a is elevated RSVP to 85 mmHg when in May she was 32 m of mercury. She was hemodynamically stable throughout her stay and she was started on therapeutic Lovenox and then transition to Xarelto. She has been tolerating all treatments very well and states that her breathing is significantly better and she is feeling much better would like to go home today. I discussed with her the need to follow-up with air hoist operator and was referred her to Dr. Bravo in 1 to 2 weeks. She is to follow-up with her primary care doctor in 3 to 5 days. She is to continue with his Xarelto dose pack at 50 mg p.o. twice daily for 21 days and then 20 mg for the rest of her life given that there is the second p.m. she does have a chronic hypercoagulable state in the polycythemia. She received her first 4 doses of the 15 mg in the hospital. She will need to go home on home oxygen as she had significant desaturations yesterday and required 4 L of nasal cannula to bring her to 91%. 2. Right lung nodule-there is an 8 mm right lower anterior lobe nodule in her lung. This was not present in 2017 on her first CTA with her PEs then. An independent review by the in-house radiologist he did not feel that it was truly a nodule, he felt that there is some vasculature mass came in signs of the nodule and so he recommended follow-up with repeat CT scan in 6 weeks. The patient is not a smoker but she did have significant exposure to secondhand smoke. 3. Her other medical diagnoses were evaluated and her home medications were continued where appropriate - Physical Exam Vitals/I&O's: Vital Signs Temp Pulse Resp BP Pulse Ox 97.8 F 72 16 129/82 H 93 01/03/19 07:37 01/03/19 07:37 01/03/19 07:37 01/03/19 07:37 01/03/19 07:40 Oxygen Flow Rate (L/min) [ 4 AMBULATION with Oxygen] Oxygen Flow Rate (L/min) 2 Oxygen Delivery Method Room Air Weight: 218 lb 7.649 oz Body Mass Index (BMI) 36.3 Intake and Output for Last 24 Hours 01/01/19 01/02/19 01/03/19 23:59 23:59 23:59 Intake Total 450 / 450 1150 / 1150 100 / 100 Balance 450 / 450 1150 / 1150 100 / 100 General: Alert, Oriented x3, Cooperative, No apparent distress HEENT: Atraumatic, PERRLA, EOMI, Normocephalic Oral: Moist Mucosa Neck: Supple, No JVD Lungs: Clear to auscultation, Normal air movement, No rhonchi, No wheeze, No rales, Diminished Cardiovascular: Regular rate, Regular Rhythm, Normal S1, Normal S2, No murmurs Abdomen: Soft, Non Tender, Non-Distended, No Hepato-splenomegaly Extremities: No edema, Capillary Refill Less than 3 Seconds Skin: No rashes, No breakdown Neurological: Neuro grossly intact, Sensory exam intact to light touch and pain Psych/Mental Status: Normal Affect, Appropriate Current Medications Aspirin (Aspirin, Baby) 81 mg PO QHS [facility] Last Admin: 01/02/19 21:23 Dose: 81 mg Documented by: Ferrous Sulfate (F[facility]ous Sulfate) [facility] Last Admin: 01/02/19 08:43 Dose: 325 mg Documented by: Fluoxetine HCl (Prozac) 20 mg PO DAILY [facility] Last Admin: 01/02/19 08:43 Dose: 20 mg Documented by: Hydroxyurea (Hydrea) 1,000 [facility] Hydroxyurea (Hydrea) 500 mg PO [facility] Last Admin: 01/02/19 08:43 Dose: 500 mg Documented by: Metoprolol Succinate (Toprol Xl (Beta Amy)) 50 mg PO QHS [facility] Last Admin: 01/02/19 21:23 Dose: 50 mg Documented by: Ondansetron HCl (Zofran Odt) 4 mg PO BREAKFAST [facility] Last Admin: 01/02/19 08:43 Dose: 4 mg Documented by: Pravastatin Sodium (Pravachol) 40 mg PO QHS [facility] Last Admin: 01/02/19 21:23 Dose: 40 mg Documented by: Rivaroxaban ([facility]to) [facility] Last Admin: 01/02/19 16:33 Dose: 15 mg Documented by: Sodium Chloride () 10 - 40 ml IV UD PRN PRN Reason: SALINE FLUSH Discharge Activity: Return to Normal Activity Call your doctor if you observe: Fever of 101 or Higher, Shortness of breath, Dizziness, Fainting spells, Swelling in the ankles, Chest pain, Increased palpitations (irregular heartbeat) Home Medications: Medications to take at Discharge Cyclobenzaprine HCl 10 mg PO DAILY PRN 02/22/15 Pravastatin [Pravachol] 40 mg PO QHS 02/22/15 Fluoxetine [Prozac] 20 mg PO DAILY 02/23/17 naproxen sodium 220 mg tablet 220 mg PO QDAY tab 04/09/17 hydroxyurea 500 mg capsule 1,000 mg PO MOWESA 09/23/17 ondansetron HCl 4 mg tablet 4 mg PO BREAKFAST 09/23/17 ferrous sulfate 325 mg (65 mg iron) tablet 325 mg PO DAILY tab 04/25/18 Aspirin 81 mg PO QHS 01/01/19 Hydroxyurea 500 mg PO SUTUTHFR 01/01/19 Metoprolol Succinate [Toprol Xl] 50 mg PO QHS 01/01/19 Rivaroxaban [Xarelto] 1 tab PO UD #51 tab 01/03/19 Following Prescrptions Were Given to Patient: Rivaroxaban [Xarelto] 1 tab PO UD #51 tab Prescription Printed Primary Care Physician: Darby Tobias MD [Primary Care Provider] - Please follow up with your Primary Care Physician in: 3-5 days Please Follow Up With: Julian Bravo MD When: 1-2 weeks Disposition: Home Minutes spent on discharge:: 35 Patient Condition:: Stable Medical Necessity - Tobacco Use Smoking Status: Never smoker Meaningful Use Info Meaningful Use Diagnoses (Choose all that apply): None applicable Code Visit Inpatient E&M: 18318 Disch Hosp
[2019-01-03] MEDS: FLUoxetine 20 MG Capsule PO (08:11)
[2019-01-03] MEDS: Ondansetron ODT 4 MG Tablet PO (08:11)
[2019-01-03] MEDS: Rivaroxaban 15 MG Tablet PO (08:11)
[2019-01-03] MEDS: Ferrous Sulfate 325 MG Tablet PO (08:11)
[2019-01-03] MEDS: Hydroxyurea 500 MG Capsule 1000 MG PO (08:11)
--- NOTE | 2019-01-20 15:17 | CASEMGMT ---
This RN JIHAN received call back from Andre Phillipe requesting further F2F documentation for pt's home oxygen that was ordered previously. progress note faxed at this time per request. Jyoti NORIEGA CM
== END 2019-01-03 10:52 | disposition home or self-care (01) | DRG 176 ==
LOC: ED 10:26 → PCU 12:09
PROVIDERS: Admitting Provider Family Medicine; Emergency Provider Emergency Medicine; Family Provider Internal Medicine; PCP Internal Medicine; Referring Provider Family Medicine; Visit Provider Family Medicine
DX: I26.99 Other pulmonary embolism without acute cor pulmonale (principal); E78.5 Hyperlipidemia, unspecified; I10 Essential (primary) hypertension; R09.02 Hypoxemia; R06.89 Other abnormalities of breathing; R91.8 Other nonspecific abnormal finding of lung field; I27.21 Secondary pulmonary arterial hypertension; I36.1 Nonrheumatic tricuspid (valve) insufficiency; Z86.711 Personal history of pulmonary embolism; E66.9 Obesity, unspecified; Z68.36 Body mass index [BMI] 36.0-36.9, adult; D45 Polycythemia vera
CPT/HCPCS: 36415; 71275; 80048; 83880; 84484; 85025; 93005; 93306; 99285; Q9957; Q9967; A4216

== ENCOUNTER → 2019-03-02 13:13 | Outpatient (CLI) | payer MEDICARE, BC, SELFPAY ==
[2019-01-14 14:02] VITALS: BMI 36.5
[2019-02-11 11:18] VITALS: BMI 36.6
--- NOTE | 2019-03-02 13:14 | BI_ITS ---
MAMMOGRAPHY - BILATERAL SCREENING 3-D TOMOSYNTHESIS REASON FOR EXAM: Female, 73 years old. FM HX MOTHER 40''S, LT SKIN TAG AND MOLE MARKED PERTINENT HISTORY: No significant family history. TECHNIQUE: 2-D mammograms and 3-D Tomosynthesis of the breast (s) were performed. CAD was performed. COMPARISON: December 06, 2014. FINDINGS: The breast composition is composed of scattered fibroglandular density. Scattered benign calcifications are seen. No dense spiculated masses or suspicious microcalcifications are identified. No architectural distortion is identified. There is no skin thickening or retraction. There has been no significant change since the prior study. BI/SCREEN MAMM (CAD) W/KHURRAM BILAT IMPRESSION: No mammographic signs of malignancy. Routine yearly mammograms recommended. ASSESSMENT CATEGORY: BIRADS Category 2: Benign. A letter regarding these results will be sent to the patient by the facility within 30 days. FOLLOW UP RECOMMENDATION: Yearly follow up mammogram recommended. (A) Approximately 10% of breast cancers are not detected by mammography. A normal mammogram should not delay biopsy of a clinically suspicious abnormality. Electronically Signed: Khadar Garcia MD at 16:00 EST , Service support ,
--- NOTE | 2019-03-02 13:52 | CT_ITS ---
STUDY: CT CHEST WITH CONTRAST REASON FOR EXAM: Female, 73 years old. F/U LUNG NODULE RADIATION DOSAGE (If Supplied By Facility): CTDIvol = ( 13.73 ) mGy, DLP = ( 649.86 ) mGycm TECHNIQUE: Transaxial imaging was performed following intravenous administration of IV 100ML ISOVUE 370. Multiplanar coronal and sagittal images were reformatted. Individualized dose optimization techniques were used for this CT. COMPARISON: CTA chest 01/01/2019 FINDINGS: The nodule in the right lower lobe evident on image 129 of series 2 of the prior study is no longer identified. No pulmonary nodule, localized infiltrate or cavitating process. There is no demonstrated pleural abnormality. Normal heart and pericardium. Normal mediastinum. Normal hilar regions. The pulmonary emboli evident on the prior study have resolved. There is atherosclerotic calcification of the aortic arch with tortuosity and elongation of the aortic arch and descending thoracic aorta. There are multi-level degenerative changes of the thoracic spine. Diminished density throughout the liver is compatible with hepatic steatosis. The adrenal glands are focally enlarged. CT/Chest WITH Contrast IMPRESSION: 1. Resolution of pulmonary emboli evident on the prior CTA. 2. Interval clearing of right lower lobe nodule on the right lower lobe evident on the prior study. No pulmonary nodule or mass in the current exam. Electronically Signed: Edwin Agarwal MD ([place]) at 8:22 EST , Service support ,
[2019-03-02 15:01] LABS: CREATININE FINGERSTICK 0.8 mg/dL (0.55-1.02)
== END ==
PROVIDERS: Family Provider Internal Medicine; PCP Internal Medicine; Referring Provider Internal Medicine Hematology & Oncology; Visit Provider Internal Medicine Hematology & Oncology
DX: R91.1 Solitary pulmonary nodule (principal); D45 Polycythemia vera; Z12.31 Encounter for screening mammogram for malignant neoplasm of breast
CPT/HCPCS: 71260; 77063; 77067; Q9967

== ENCOUNTER → 2019-07-08 15:30 | Outpatient (CLI) | payer MEDICARE, BC, SELFPAY ==
[2019-06-22 13:40] VITALS: BMI 36.6
--- NOTE | 2019-07-08 15:38 | RAD_ITS ---
STUDY: X-RAY CHEST REASON FOR EXAM: Female, 73 years old. SHORTNESS OF BREATH TECHNIQUE: PA and lateral views of the chest. COMPARISON: Comparison is made with prior study dated February 23, 2017. FINDINGS: The lungs are clear and expanded. Scattered calcified granulomas. There is no demonstrated pleural abnormality. Normal size heart. Normal mediastinum and renny. Normal visualized pulmonary arteries. There is atherosclerotic calcification of the aortic arch with tortuosity. There are diffuse degenerative changes of the visualized thoracic spine. Normal visualized ribs, clavicles, and shoulders. There is no demonstrated abnormality of the visualized soft tissue structures of the upper abdomen. RAD/Chest PA and Lateral IMPRESSION: No acute abnormality is seen. Electronically Signed: Jhon Painting, at 16:02 EDT , Service support ,
[2019-07-08 16:51] LABS: Absolute Lymphocyte Count 2.87 X10^3/uL (0.83-4.51); Absolute Neutrophil Count 5.9 X10^3/uL (2.0-7.7); Basophil# 0.08 X10^3/uL; Basophil% 0.8 % (0-1); Eosinophil# 0.42 X10^3/uL; Eosinophils% 4.2 % (0-5); Hematocrit 42.2 % (37-47); Hemoglobin 12.9 g/dL (12.0-15.0); Lymphocyte # 2.87 X10^3/ul (4.0); Lymphocyte % 28.7 % (19-41); Mean Corp Hgb Conc 30.6 g/dL (32-36); Mean Corpuscular Hgb 33.8 pg (27.0-32.0); Mean Corpuscular Volume 110.5 fL (81-99); Mean Platelet Vol. 10.7 fl (6.2-12.0); NRBC Flagged by Analyzer 0 % (0-5); Neutrophil # 5.89 X10^3/uL (2.7-7.7); Neutrophil % 58.8 % (47-70); Platelet Count 308 K/mm3 (150-450); RBC Distribution Width CV 15.2 % (11.6-14.6); RBC Distribution Width SD 62.1 fl (35.1-43.9); Red Blood Count 3.82 M/mm3 (4.2-5.4)
[2019-07-08 17:18] LABS: Vitamin D,25 Hydroxy 19.5 ng/mL
[2019-07-08 17:59] LABS: ALB/GLOB Ratio 0.9 RATIO (0.9-2.4); AST(SGOT) 26 U/L (15-37); Alanine Aminotransfer ALT/SGPT 37 U/L (13-56); Albumin, Serum 3.6 g/dL (3.2-5.0); Alkaline Phosphatase 95 U/L (45-117); Anion Gap 6 (5-15); BUN 22 mg/dL (7-18); BUN/Creat Ratio 19.3 RATIO (10-20); Chloride 102 mmol/L (98-107); Creatinine, Serum 1.14 mg/dL (0.55-1.02); EST Glomerular Filtration Rate 49 mL/min (>60); Est Glom Filt Rate - Afr Amer 60 mL/min (>60); Globulin 4.1 g/dL (2.2-4.2); Glucose 86 mg/dL (74-106); Potassium 4.1 mmol/L (3.5-5.1); Protein, Total 7.7 g/dL (6.4-8.2); Sodium Level 138 mmol/L (136-145); Thyroid Stim Hormone (TSH) 3.41 uIU/mL (0.358-3.74)
== END ==
LOC: RAD 15:32 → LAB 16:00
PROVIDERS: PCP Internal Medicine; Referring Provider Family Medicine Geriatric Medicine; Visit Provider Family Medicine Geriatric Medicine
DX: R06.02 Shortness of breath (principal); E55.9 Vitamin D deficiency, unspecified; R53.83 Other fatigue
CPT/HCPCS: 36415; 71046; 80053; 82306; 84443; 85025

== ENCOUNTER → 2019-07-20 09:34 | Outpatient (CLI) | payer MEDICARE, BC, SELFPAY ==
[2019-06-22 13:40] VITALS: BMI 36.6
--- NOTE | 2019-07-20 09:40 | ECHOCS_ITS ---
Reason For Study: SEARS Procedure This was a 2D Doppler, Color Flow transthoracic echocardiogram. The study was technically difficult. Contrast injection was performed. Exam performed in department. Left Ventricle Normal LV size. Left ventricular systolic function is normal. The estimated ejection fraction is 65 %. Stage 1 diastolic dysfunction. No regional wall motion abnormalities noted. Right Ventricle Normal RV size. Normal systolic function. Atria Normal left atrium. Normal right atrium. Mitral Valve Normal mitral valve. Tricuspid Valve Normal tricuspid valve. Aortic Valve The aortic valve is not well visualized. Great Vessels Normal aortic root. The pulmonary artery is normal size. Normal inferior vena cava. Pericardium/Pleural No pericardial effusion. Medication 22 gauge I.V. with prn adaptor inserted into right arm. Diluted definity 3.0ml given slow IV push to enhance endocardial definition. MMode/2D Measurements & Calculations LVIDd: 4.8 cm IVSd: 1.2 cm Ao root diam: 2.9 cm LVIDs: 3.2 cm LVPWd: 0.98 cm RVDd: 3.6 cm FS: 34.4 % LAV(MOD-bp): 43.2 ml EDV(MOD-sp4): 67.9 ml EDV(MOD-sp2): 96.4 ml LAV(MOD-bp) Indexed: 21.2 ml/m2 ESV(MOD-sp4): 22.9 ml EF(MOD-sp2): 79.7 % LAV(MOD-sp2): 50.0 ml EF(MOD-sp4): 66.3 % LAV(MOD-sp4): 34.2 ml SV(MOD-sp4): 45.1 ml SV(MOD-sp2): 76.8 ml LA A4 area: 14.5 cm2 LA dimension(2D): 4.0 cm RA A4 area: 12.2 cm2 Time Measurements MV dec time: 0.24 sec Doppler Measurements & Calculations MV E max dawit: 65.7 cm/sec Lat Peak E' Dawit: 10.5 cm/sec Med Peak E' Dawit: 4.5 cm/sec MV A max dawit: 98.6 cm/sec E/E' lat: 6.3 E/E' med: 14.6 MV E/A: 0.67 Ao V2 max: 159.9 cm/sec LV V1 max: 148.6 cm/sec PA V2 max: 109.2 cm/sec Ao max P.2 mmHg LV V1 max P.8 mmHg TR max dawit: 223.9 cm/sec TR max P.1 mmHg Interpretation Summary Normal LV size. Left ventricular systolic function is normal. The estimated ejection fraction is 65 %. Stage 1 diastolic dysfunction. Contrast injection was performed. Ordering Physician: Tor Law Referring Physician: Tor Law Chi Performed By: Nickie Sales, KAM, RVT
== END ==
PROVIDERS: PCP Family Medicine Geriatric Medicine; Referring Provider Family Medicine Geriatric Medicine; Visit Provider Family Medicine Geriatric Medicine
DX: R06.09 Other forms of dyspnea (principal)
CPT/HCPCS: 93306; Q9957; A4216; C8929

== ENCOUNTER → 2019-07-22 11:06 | Outpatient (CLI) | payer MEDICARE, BC, SELFPAY ==
[2019-06-22 13:40] VITALS: BMI 36.6
--- NOTE | 2019-07-22 11:12 | BD_ITS ---
STUDY: DUAL ENERGY X-RAY ABSORPTIOMETRY / DXA REASON FOR EXAM: Female, 73 years old. 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 COMPARISON: None. FINDINGS: Lumbar Spine (L1-L4): g/cm2 (1.525) / T-score (2.7) / Z-score (4.5) Findings are suggestive of normal bone density with a low fracture risk. Left Femur Total: g/cm2 (1.137) / T-score (1.0) / Z-score (2.8) Left Femoral Neck: g/cm2 (1.109) / T-score (0.5) / Z-score (2.5) BD/Dexa Bone Density Study IMPRESSION: The patient is considered normal as outlined below according to World Jario Organization (WHO) criteria with a low fracture risk. Reference Information: The T-score is the number of standard deviations above or below the standard which is normal for young adults at their peak bone mineral density. The World Health Organization (WHO) interprets the T-scores as follows: Above -1 Normal bone density Between -1 and -2.5 Osteopenia Equal to / or below -2.5 Osteoporosis As a practical clinical guideline, osteopenia may be graded as follows: Mild -1 through -1.5 Moderate -1.6 through -2.0 Severe -2.1 through -2.4 The Z-score is the number of standard deviations above or below age-matched controls. A Z-score of less than -1.5 would be considered abnormal. References: 1. NIH Osteoporosis and Related Bone Diseases http://www.osteo.org 2. International Society for Clinical Densitometry http://www.iscd.org 3. National Osteoporosis Foundation http://www.nof.org Electronically Signed: Jhon Painting, at 10:23 EDT , Service support ,
== END ==
PROVIDERS: PCP Family Medicine Geriatric Medicine; Referring Provider Family Medicine Geriatric Medicine; Visit Provider Family Medicine Geriatric Medicine
DX: Z78.0 Asymptomatic menopausal state (principal)
CPT/HCPCS: 77080

== ENCOUNTER → 2019-10-08 09:39 | Outpatient (CLI) | payer MEDICARE, BC, SELFPAY ==
[2019-09-14 13:46] VITALS: BMI 35.2
[2019-10-08 14:27] LABS: Absolute Lymphocyte Count 2.25 X10^3/uL (0.83-4.51); Absolute Neutrophil Count 5.1 X10^3/uL (2.0-7.7); Basophil# 0.03 X10^3/uL; Basophil% 0.4 % (0-1); Eosinophil# 0.32 X10^3/uL; Eosinophils% 3.9 % (0-5); Hematocrit 40.9 % (37-47); Hemoglobin 12.1 g/dL (12.0-15.0); Lymphocyte # 2.25 X10^3/ul (4.0); Lymphocyte % 27.6 % (19-41); Mean Corp Hgb Conc 29.6 g/dL (32-36); Mean Corpuscular Hgb 30.6 pg (27.0-32.0); Mean Corpuscular Volume 103.3 fL (81-99); Mean Platelet Vol. 10.8 fl (6.2-12.0); Monocyte# 0.47 X10^3/uL; Monocyte% 5.8 % (0-10); NRBC Flagged by Analyzer 0 % (0-5); Neutrophil # 5.05 X10^3/uL (2.7-7.7); Neutrophil % 61.8 % (47-70); Platelet Count 395 K/mm3 (150-450); RBC Distribution Width CV 15.7 % (11.6-14.6); RBC Distribution Width SD 59.3 fl (35.1-43.9); Red Blood Count 3.96 M/mm3 (4.2-5.4); White Blood Count 8.2 K/mm3 (4.4-11.0)
[2019-10-08 15:02] LABS: ALB/GLOB Ratio 0.8 RATIO (0.9-2.4); AST(SGOT) 31 U/L (15-37); Alanine Aminotransfer ALT/SGPT 42 U/L (13-56); Albumin, Serum 3.5 g/dL (3.2-5.0); Alkaline Phosphatase 92 U/L (45-117); Anion Gap 5 (5-15); BUN 19 mg/dL (7-18); BUN/Creat Ratio 15.1 RATIO (10-20); Calcium,Total 9.3 mg/dL (8.5-10.1); Chloride 108 mmol/L (98-107); Creatinine, Serum 1.26 mg/dL (0.55-1.02); EST Glomerular Filtration Rate 44 mL/min (>60); Est Glom Filt Rate - Afr Amer 53 mL/min (>60); Globulin 4.6 g/dL (2.2-4.2); Glucose 128 mg/dL (74-106); Potassium 4.5 mmol/L (3.5-5.1); Protein, Total 8.1 g/dL (6.4-8.2); Sodium Level 140 mmol/L (136-145); Thyroid Stim Hormone (TSH) 2.61 uIU/mL (0.358-3.74)
[2019-10-08 15:22] LABS: Vitamin D,25 Hydroxy 20.2 ng/mL
== END ==
PROVIDERS: PCP Family Medicine Geriatric Medicine; Visit Provider Family Medicine Geriatric Medicine
DX: I10 Essential (primary) hypertension (principal); E55.9 Vitamin D deficiency, unspecified
CPT/HCPCS: 36415; 80053; 82306; 84443; 85025

== ENCOUNTER → 2019-11-06 12:19 | Outpatient (CLI) | payer MEDICARE, BC, SELFPAY ==
[2019-10-26 13:42] VITALS: BMI 34.3
[2019-11-06 12:58] LABS: Absolute Neutrophil Count 6.5 X10^3/uL (2.0-7.7); Basophil# 0.03 X10^3/uL; Basophil% 0.3 % (0-1); Eosinophil# 0.44 X10^3/uL; Eosinophils% 4.4 % (0-5); Hematocrit 42.6 % (37-47); Hemoglobin 12.4 g/dL (12.0-15.0); Lymphocyte % 23.1 % (19-41); Mean Corp Hgb Conc 29.1 g/dL (32-36); Mean Corpuscular Volume 102.9 fL (81-99); Mean Platelet Vol. 10.7 fl (6.2-12.0); Monocyte# 0.63 X10^3/uL; Monocyte% 6.3 % (0-10); NRBC Flagged by Analyzer 0 % (0-5); Neutrophil # 6.51 X10^3/uL (2.7-7.7); Neutrophil % 65.3 % (47-70); Platelet Count 448 K/mm3 (150-450); RBC Distribution Width CV 16.3 % (11.6-14.6); RBC Distribution Width SD 62.4 fl (35.1-43.9); Red Blood Count 4.14 M/mm3 (4.2-5.4)
== END ==
PROVIDERS: PCP Family Medicine Geriatric Medicine; Visit Provider Family Medicine Geriatric Medicine
DX: D45 Polycythemia vera (principal)
CPT/HCPCS: 36415; 85025

== ENCOUNTER 2019-11-15 16:55 | Emergency (ER) | payer MEDICARE, BC, SELFPAY ==
[2019-10-26 13:42] VITALS: BMI 34.3
[2019-11-15] VITALS (15 sets, daily range): BP systolic 132–182; BP diastolic 45–112; PULSE 81–94; RESP 16–22; TEMP 36.8; O2SAT 96–100; BMI 35.5
--- NOTE | 2019-11-15 17:22 | ED.VIS.GEN ---
History of Present Illness Chief Complaint: Upper Extremity Injury Informant: Patient Narrative: 4-year-old female presenting with right elbow pain after a mechanical fall. She was opening her door to let out her dog and it swung to widely and she fell striking her right elbow. She denies head injury or LOC. She states she was otherwise well prior to this. She has no paresthesias in her right arm or upper extremity. She has no right shoulder pain she has no right hand pain. She has sustained no lacerations or abrasions. Past Medical History - Allergies and Home Meds Allergies/Adverse Reactions: Allergies No Known Allergies Allergy (Verified 10/26/19 13:41) Primary Care Physician: Tor Law Chi, MD [Primary Care Provider] - Surgical History: appendectomy, cataract - BL, total hip arthroplasty - Right, total knee arthroplasty - Bilateral, - - remote breast biopsy-negative Smoking Status: Never smoker - Family History Offspring Family History: Family History (Last Reviewed 10/26/19 @ 13:40 by Linh Vuong) Mother Arthritis Son DVT (deep venous thrombosis) Daughter DVT (deep venous thrombosis) Family History: Reports: - - Both her son and daughter have had pulmonary emboli. Maternal Family History: Family History (Last Reviewed 10/26/19 @ 13:40 by Linh Vuong) Mother Arthritis Son DVT (deep venous thrombosis) Daughter DVT (deep venous thrombosis) Family History: Reports: - - Mother had crippling arthritis that sounds like rheumatoid but the patient could not confirm this. Her son also has bad arthritis. Physical Exam Vital Signs/Narrative: Vital Signs Temp Pulse Resp BP Pulse Ox 11/15/19 16:55 98.3 F 83 16 141/52 H 97 Diagnostic/Tx/Re-eval Clinical Impression(s) from Imaging Studies Elbow X-Ray 11/15/19 17:38 IMPRESSION: Effusion or hemarthrosis suggests an occult intra-articular fracture. Limited sensitivity due to lack of true lateral and AP projections. Electronically Signed: Shyam Huber MD at 18:28 EDT , Service support , Forearm X-Ray 11/15/19 17:38 IMPRESSION: No fracture. Possible subluxation or dislocation as above. Electronically Signed: Shyam Huber MD at 18:34 EDT , Service support , Humerus X-Ray 11/15/19 17:38 Elbow X-Ray 11/15/19 19:38 IMPRESSION: Dislocation as above. No fracture. Electronically Signed: Shyam Huber MD at 20:33 EDT , Service support , - Medical Decision Making Patient was seen and evaluated on arrival for right elbow pain after mechanical fall. After initial films it did appear that she had a significant dislocation without obvious fracture however radiology did think there was likelihood of intra-articular fracture. This was discussed with Dr. Esquivel who recommended trying to get it in a good position with splinting. Patient was consented for conscious sedation with propofol and closed reduction of right elbow dislocation. Initially the elbow seem to be in good position and was splinted however on follow-up films it had located again. I did call Dr. Esquivel who was willing to come in and place the patient in proper positioning while I did conscious sedation. Patient tolerated both procedures well. Dr. Esquivel used C arm to confirm placement. Dr. Esquivel stated that he will follow-up with her outpatient and refer her to a specialist for her elbow as she really needs surgery for repair due to unstable joint and likely ligamentous injury. Patient was given Pinnacle for home for pain. Impression: 1. Right elbow fracture dislocation ED Disposition - Plan for ED Patient: Disposition: Home or Assisted Living Instructions: ED DISLOCATED ELBOW, ED FRACTURE Elbow Prescriptions: Hydrocodone Bitart/Apap 5-325 [[facility]acle 5MG-325MG] 1 tab PO Q6H PRN PRN 3 Days #10 tab PRN Reason: Pain Prescription Printed Referrals: Tor Law Chi, MD [Primary Care Provider] -
--- NOTE | 2019-11-15 17:38 | RAD_ITS ---
STUDY: X-RAY - RIGHT RADIUS AND ULNA REASON FOR EXAM: Female, 74 years old. PATIENT INJURED ARM WHILE DEALING WITH HER DOG AND LEASH. AFTER THE FIRST PICTURES OF HER HUMERUS AND ELBOW, THE ELBOW POSITION CHANGED. WE CLEARED IT WITH DR. GUTIERRES IN ER BEFORE SUPINATING HER HAND AND TAKING HER OUT OF THE SPLINT TECHNIQUE: 2 view(s) of the forearm. COMPARISON: None. FINDINGS: There is no demonstrated soft tissue swelling. Normal visualized radius. Normal visualized ulna. Radial head and olecranon appears subluxed or dislocated after supination. RAD/Forearm 2 Views IMPRESSION: No fracture. Possible subluxation or dislocation as above. Electronically Signed: Shyam Huber MD at 18:34 EDT , Service support ,
--- NOTE | 2019-11-15 17:38 | RAD_ITS ---
STUDY: X-RAY - RIGHT ELBOW REASON FOR EXAM: Female, 74 years old. TRIPPED WHILE WALKING DOG. PER EMS POSITIVE DEFORMITY TO RIGHT ARM. NO LOC. TECHNIQUE: 2 view(s) of the elbow. Supination and pronation but no true AP or lateral. COMPARISON: None. FINDINGS: Normal visualized humerus, radius and ulna. Normal radiocapitellar and ulnotrochlear articulations. The soft tissue structures are unremarkable. Anterior and posterior fat pads. RAD/Elbow min 3 Views IMPRESSION: Effusion or hemarthrosis suggests an occult intra-articular fracture. Limited sensitivity due to lack of true lateral and AP projections. Electronically Signed: Shyam Huber MD at 18:28 EDT , Service support ,
--- NOTE | 2019-11-15 17:38 | RAD_ITS ---
STUDY: X-RAY - RIGHT HUMERUS REASON FOR EXAM: Female, 74 years old. PAIN IN ELBOW AFTER INCIDENT WITH DOG AND LEASH. ONLY 1 AP PROJECTION TAKEN PATIENT''S ELBOW CHANGED POSITION EXAM PROGRESSED . ER DOCTOR THEN ASKED FOR ONLY ELBOW/FOREARM EXAM TECHNIQUE: 1 view(s) of the humerus. COMPARISON: None. FINDINGS: Normal visualized humerus. There is no demonstrated fracture or osseous destructive process. Possible elbow dislocation or subluxation. There is no demonstrated soft tissue abnormality. IMPRESSION: Limited one view projection. Possible elbow dislocation or subluxation. No fracture. Electronically Signed: Shyam Huber MD at 19:17 EDT , Service support , RAD/Humerus min 2 Views
[2019-11-15] MEDS: Ondansetron 4 MG/2 ML Vial IM (18:44)
[2019-11-15] MEDS: fentaNYL 100 MCG/2 ML Ampul 50 MCG IV (18:45)
[2019-11-15] MEDS: 0.9% Normal Saline 1,000 ML 999 ML IV (19:00)
[2019-11-15] MEDS: Propofol 200 MG/20 ML Vial IV BOLUS ×2 (19:14→21:45)
--- NOTE | 2019-11-15 19:38 | RAD_ITS ---
STUDY: X-RAY - RIGHT ELBOW REASON FOR EXAM: Female, 74 years old. post reduction TECHNIQUE: 2 view(s) of the elbow. COMPARISON: None. FINDINGS: Fiberglas splint obscures detail. Consistent concern for 100% dislocation of the radial head and olecranon lateral to the humerus. Normal visualized humerus, radius and ulna. Normal radiocapitellar and ulnotrochlear articulations. The soft tissue structures are unremarkable. RAD/Elbow 2 Views IMPRESSION: Dislocation as above. No fracture. Electronically Signed: Shyam Huber MD at 20:33 EDT , Service support ,
--- NOTE | 2019-11-15 20:41 | RAD_ITS ---
STUDY: X-RAY - RIGHT ELBOW REASON FOR EXAM: Female, 74 years old. post reduction elbow with the c arm TECHNIQUE: 1 fluoroscopic spot view(s) of the elbow. COMPARISON: None. FINDINGS: Normal visualized humerus, radius and ulna. Normal radiocapitellar and ulnotrochlear articulations. The soft tissue structures are unremarkable. RAD/Elbow 2 Views IMPRESSION: Apparent anatomic alignment on this single limited 1 view lateral fluoroscopic spot film. Sensitivity is limited by a posterior plaster splint. Electronically Signed: Shyam Huber MD at 23:39 EDT , Service support ,
--- NOTE | 2019-11-15 21:06 | PCM.CONS.GEN ---
Reason for Consult Date of Consultation: 11/15/19 Reason for Consultation: Right elbow dislocation. Requested by Dr. Shepherd History of Present Illness: The patient is a 74 year old F morbidly obese presents today after opening the door of her dog. While she was attempting to close the door she lost her balance and landed on her right extremity. She is right-hand dominant. She was noted to come in with a splinted elbow complaining of right elbow pain. She does report some very mild paresthesias but limited in distribution. She is able to move all her digits. Her pain is a 7 out of 10. Emergency department did attempt 1 reduction postreduction films showed a inadequate reduction. Initial film showed the radial head was relatively lined up however the medial joint was completely dislocated especially on the AP view and gapped open. Newest set of films show a posterior lateral dislocation. Pain is at the right elbow is a dull achy pain. Past Medical History Past Medical History (Chronic Problems): Chronic Problems (Last Reviewed 10/26/19 @ 13:40 by Linh Vuong) Pulmonary embolism, bilateral (Chronic 12/2018) 02/2017, 12/2018 Pulmonary embolism without acute cor pulmonale (Chronic 12/2018) 02/2017, 12/2018 Right ventricular diastolic dysfunction (Chronic) Secondary pulmonary arterial hypertension (Chronic) RVSP 62 mmHg Nonrheumatic tricuspid (valve) insufficiency (Chronic) Essential (primary) hypertension (Chronic) HLD (hyperlipidemia) (Chronic) High blood hemoglobin A2 (Chronic) Polycythemia rubra vera (Chronic) SHIRLEY (obstructive sleep apnea) (Chronic) Medical History: Medical History (Last Reviewed 10/26/19 @ 13:40 by Linh Vuong) Pulmonary embolism, bilateral (Chronic) Onset Date: 12/2018 I26.99 02/2017, 12/2018 Pulmonary embolism without acute cor pulmonale (Chronic) Onset Date: 12/2018 I26.99 02/2017, 12/2018 Right ventricular diastolic dysfunction (Chronic) I51.89 Secondary pulmonary arterial hypertension (Chronic) I27.21 RVSP 62 mmHg Nonrheumatic tricuspid (valve) insufficiency (Chronic) I36.1 Essential (primary) hypertension (Chronic) I10 HLD (hyperlipidemia) (Chronic) E78.5 High blood hemoglobin A2 (Chronic) D56.1 SHIRLEY (obstructive sleep apnea) (Chronic) G47.33 Lung nodule (Resolved) R91.1 Anemia D64.9 iron deficiency Hepatic steatosis K76.0 Hypercoagulable state D68.59 Juvenile rheumatic fever I00 Obesity (BMI 30-39.9) E66.9 Osteoarthritis M19.90 Elevated troponin (Resolved) R74.8 Hypoxemia (Inactive) R09.02 Allergies No Known Allergies Allergy (Verified 10/26/19 13:41) Home Medications: Ambulatory Orders Medication Instructions Recorded rivaroxaban 20 mg tablet 20 mg PO DAILY #30 tab 04/16/19 metoprolol succinate 50 mg 50 mg PO QHS #90 tab 08/13/19 tablet,extended release 24 hr Hydroxyurea 1,000 mg PO DAILY #150 cap 10/13/19 Surgical History: Surgical History (Last Reviewed 10/26/19 @ 13:40 by Linh Vuong) History of appendectomy (Resolved) Z98.890, Z90.49 History of bilateral knee replacement Z96.653 History of cataract extraction (Resolved) Z98.49 History of cataract surgery Z98.49 History of left knee replacement (Resolved) Z96.652 History of right hip replacement (Resolved) Z96.641 History of right hip replacement Z96.641 History of right knee joint replacement (Resolved) Z96.651 S/P tendon repair Z98.890 Surgical History: appendectomy, cataract - BL, total hip arthroplasty - Right, total knee arthroplasty - Bilateral, - - remote breast biopsy-negative Psychiatric History: No pertinent psych hx 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 Maternal Family History: Family History (Last Reviewed 10/26/19 @ 13:40 by Linh Vuong) Mother Arthritis Son DVT (deep venous thrombosis) Daughter DVT (deep venous thrombosis) History Items: - - Mother had crippling arthritis that sounds like rheumatoid but the patient could not confirm this. Her son also has bad arthritis. Review of Systems Constitutional: Denies: Chills, Fever, Weight Change HEENT: Denies: Head Aches, Sinus Congestion, Sinus Drainage Cardiovascular: Denies: Chest Pain, Palpitations Respiratory: Denies: Cough, Shortness of breath at rest, Sputum production Gastrointestinal: Denies: Abdominal Pain, Nausea, Vomiting Genitourinary: Denies: Dysuria Musculoskeletal: Reports: Joint Pain, Joint Tenderness Skin: Denies: Rash, Wounds Neurological: Denies: Numbness, Tingling, Focal weakness Psychiatric: Denies: Anxiety, Depression, Homicidal Ideations, Suicidal Ideations Hematologic/ Lymphatic: Denies: Easy Bruising, Easy Bleeding Objective: Elbow radiographs, humeral radiographs and forearm radiographs were all reviewed on the right. Showing a posterior lateral dislocation of the elbow. There was some initial question of intra-articular fracture however no distinct fractures are appreciated. - Physical Exam Vitals/I&O's: Vital Signs Temp Pulse Resp BP Pulse Ox 98.3 F 81 20 H 182/89 H 98 11/15/19 16:55 11/15/19 19:50 11/15/19 20:16 11/15/19 19:50 11/15/19 19:50 Oxygen Flow Rate (L/min) [6] 2 Oxygen Flow Rate (L/min) [5] 2 Oxygen Flow Rate (L/min) [4] 2 Oxygen Flow Rate (L/min) [3] 2 Oxygen Flow Rate (L/min) 2 Oxygen Delivery Method [6] Nasal Cannula Oxygen Delivery Method [5] Nasal Cannula Oxygen Delivery Method [4] Nasal Cannula Oxygen Delivery Method [3] Nasal Cannula Oxygen Delivery Method Room Air Weight: 213 lb 10.047 oz Body Mass Index (BMI) 35.5 General: Alert, Oriented x3, Cooperative HEENT: Atraumatic Neck: No JVD Lungs: - - Nonlabored breathing Cardiovascular: - - Regular heart rate Abdomen: Non-Distended Extremities: - - Right upper extremity: Patient's right upper extremity is contorted. Swelling at the elbow. His palpation at the elbow. Positive thumbs up, okay sign and cross his fingers. Sensations intact light touch backslash and +2 distally. 2+ radial pulse. Skin is intact. Skin: No rashes, No breakdown Neurological: Cranial nerves II-XII grossly intact Psych/Mental Status: Normal Affect Assessment/Plan All Active Problems (Last Reviewed 10/26/19 @ 13:40 by Linh K [place]) Lung nodule (Resolved) Elevated troponin (Resolved) History of appendectomy (Resolved) History of cataract extraction (Resolved) History of left knee replacement (Resolved) History of right hip replacement (Resolved) History of right knee joint replacement (Resolved) Right posterior lateral elbow dislocation Natural history of the disease process and treatment options were discussed the patient. Patient is failed 1 reduction already by the emergency department. We discussed potential treatment options this evening included repeat reduction with splinting under conscious sedation which is what I recommended. In addition if that failed we discussed potential for open repair urgently versus emergent external fixation. We discussed the long-term treatment plans including nonoperative versus operative treatment and referral to an upper extremity specialist once stabilized. Patient demonstrated understanding. After discussion of risks and benefits of the repeat close reduction tonight patient wished to proceed. Risks included the risk of conscious sedation including stress on the heart and lungs and neurovascular damage as well as skin tears, and causing a fracture. Patient demonstrated understanding and wished to proceed. Close reduction: Conscious sedation was administered by the emergency room physician. Patient was moved to the right side of the bed. With the right arm off I was able to gain control of the elbow. Elbow was extended medial pressure was placed in traction was placed on the elbow. Elbow was then flexed. This was performed multiple times until we can find a stable position. The elbow reduced and then spontaneously dislocated again. Once we found a stable position and full pronation and about 80 degrees flexion and automotive parts counter assistant was able to hold this position while I placed the posterior splint. Initial splint did not adequately brace the posterior arm and so a second layer of splinting was placed overlapping it more proximally to fully stabilize the elbow. Once the splint had cured live fluoroscopy was used to re-x-ray the elbow. At this point the elbow was adequately reduced on the lateral view. Repeat examination showed patient had sensation intact light touch R/M/U. Patient was able to give thumbs up, okay sign and cross fingers. Digits were warm and pink with brisk cap refill. Patient has been stabilized for this evening. Plan at this point will be to make a referral to a upper extremity and elbow specialist to be seen this week. Patient will call the office so we can help arrange this. [facility] Office:
--- NOTE | 2019-11-15 21:53 | ED.RN ---
SECOND CONSCIOUS SEDATION DOCUMENTATION CONTINUED FROM PREVIOUS WITH NEW START INFORMATION, TIME OUT AND ALDRETTE'S.
[2019-11-15] MEDS: HYDROcodone Bitartrate/Apap 5/325 Tablet PO (22:35)
== END 2019-11-15 23:00 | disposition home or self-care (01) ==
PROVIDERS: Emergency Provider Student in an Organized Health Care Education/Training Program; PCP Family Medicine Geriatric Medicine
DX: S53.024A Posterior dislocation of right radial head, initial encounter (principal); W01.0XXA Fall on same level from slipping, tripping and stumbling without subsequent striking against object, initial encounter; Y93.9 Activity, unspecified; Y92.9 Unspecified place or not applicable; I36.1 Nonrheumatic tricuspid (valve) insufficiency; D75.1 Secondary polycythemia; I27.21 Secondary pulmonary arterial hypertension; G47.33 Obstructive sleep apnea (adult) (pediatric); I11.9 Hypertensive heart disease without heart failure; M19.90 Unspecified osteoarthritis, unspecified site; E66.01 Morbid (severe) obesity due to excess calories; Z68.35 Body mass index [BMI] 35.0-35.9, adult; K76.0 Fatty (change of) liver, not elsewhere classified; Z86.2 Personal history of diseases of the blood and blood-forming organs and certain disorders involving the immune mechanism; Z86.711 Personal history of pulmonary embolism; Z79.01 Long term (current) use of anticoagulants; Z79.899 Other long term (current) drug therapy
CPT/HCPCS: 24600 ×2; 73060; 73070; 73080; 73090; 76000; 96361; 96372; 96374; 99152; 99285; J7030; A4216; J2405

== ENCOUNTER → 2020-01-06 13:46 | Outpatient (CLI) | payer MEDICARE, BC, SELFPAY ==
[2019-12-21 15:44] VITALS: BMI 32.6
[2020-01-06 16:00] LABS: Absolute Lymphocyte Count 1.81 X10^3/uL (0.83-4.51); Absolute Neutrophil Count 7.2 X10^3/uL (2.0-7.7); Basophil# 0.05 X10^3/uL; Basophil% 0.5 % (0-1); Eosinophil# 0.34 X10^3/uL; Eosinophils% 3.4 % (0-5); Hematocrit 39.1 % (37-47); Hemoglobin 11.4 g/dL (12.0-15.0); Lymphocyte # 1.81 X10^3/ul (4.0); Lymphocyte % 18.4 % (19-41); Mean Corp Hgb Conc 29.2 g/dL (32-36); Mean Corpuscular Hgb 29.6 pg (27.0-32.0); Mean Corpuscular Volume 101.6 fL (81-99); Mean Platelet Vol. 10.5 fl (6.2-12.0); Monocyte# 0.41 X10^3/uL; Monocyte% 4.2 % (0-10); NRBC Flagged by Analyzer 0 % (0-5); Neutrophil # 7.19 X10^3/uL (2.7-7.7); Neutrophil % 72.9 % (47-70); Platelet Count 446 K/mm3 (150-450); RBC Distribution Width CV 16.4 % (11.6-14.6); RBC Distribution Width SD 60.8 fl (35.1-43.9); Red Blood Count 3.85 M/mm3 (4.2-5.4); White Blood Count 9.9 K/mm3 (4.4-11.0)
[2020-01-06 16:26] LABS: ALB/GLOB Ratio 0.8 RATIO (0.9-2.4); AST(SGOT) 17 U/L (15-37); Alanine Aminotransfer ALT/SGPT 22 U/L (13-56); Albumin, Serum 3.5 g/dL (3.2-5.0); Alkaline Phosphatase 119 U/L (45-117); Anion Gap 7 (5-15); BUN 24 mg/dL (7-18); BUN/Creat Ratio 23.1 RATIO (10-20); Calcium,Total 9.2 mg/dL (8.5-10.1); Chloride 106 mmol/L (98-107); Creatinine, Serum 1.04 mg/dL (0.55-1.02); EST Glomerular Filtration Rate 55 mL/min (>60); Est Glom Filt Rate - Afr Amer 66 mL/min (>60); Globulin 4.3 g/dL (2.2-4.2); Glucose 126 mg/dL (74-106); Potassium 4.6 mmol/L (3.5-5.1); Protein, Total 7.8 g/dL (6.4-8.2); Sodium Level 139 mmol/L (136-145); Thyroid Stim Hormone (TSH) 1.86 uIU/mL (0.358-3.74)
[2020-01-07 13:54] LABS: Vitamin D,25 Hydroxy 13.8 ng/mL
== END ==
PROVIDERS: Referring Provider Family Medicine Geriatric Medicine; Visit Provider Family Medicine Geriatric Medicine
DX: I10 Essential (primary) hypertension (principal); E55.9 Vitamin D deficiency, unspecified; N39.0 Urinary tract infection, site not specified
CPT/HCPCS: 36415; 80053; 82306; 84443; 85025; 87086; 87088; 87186

== ENCOUNTER → 2020-03-21 12:53 | Outpatient (CLI) | payer MEDICARE, BC, SELFPAY ==
[2019-12-07 15:31] VITALS: BMI 35.5
[2019-12-21 15:44] VITALS: BMI 32.6
--- NOTE | 2020-03-21 12:55 | BI_ITS ---
MAMMOGRAPHY - BILATERAL SCREENING REASON FOR EXAM: Female, 74 years old. Routine annual screening examination. PERTINENT HISTORY: Mother with breast cancer. TECHNIQUE: Digital bilateral breast khurram (3D mammographic acquisition) in the CC and MLO projections. 2-D mediolateral oblique (MLO) and craniocaudad (CC) views of both breasts were obtained. CAD: Full Field Digital Mammography with Computer Added Detection was performed. COMPARISON: Comparison is made with prior examination dated 03/02/2019 and 12/06/2014. FINDINGS: Breast Composition: There are scattered areas of fibroglandular density. There are no dominant masses or suspicious calcifications. Stable 5.5 mm well-defined nodule in the axillary region of the left breast. This most likely represents a small lymph node. No other significant abnormalities are identified. There has been no significant change since the prior study. BI/SCRN MAMM (CAD)W/KHURRAM BILAT IMPRESSION: Stable bilateral screening mammogram. Yearly follow-up mammogram recommended. (A) ASSESSMENT CATEGORY: BIRADS Category 2: Benign. A letter regarding these results will be sent to the patient by the facility within 30 days. Approximately 10% of breast cancers are not detected by mammography. A normal mammogram should not delay biopsy of a clinically suspicious abnormality. [id number] Electronically Signed: Jhon Painting MD at 14:03 EST , Service support ,
== END ==
PROVIDERS: PCP Internal Medicine; Referring Provider Internal Medicine Hematology & Oncology; Visit Provider Internal Medicine Hematology & Oncology
DX: Z12.31 Encounter for screening mammogram for malignant neoplasm of breast (principal)
CPT/HCPCS: 77063; 77067

== ENCOUNTER → 2020-04-05 13:48 | Outpatient (CLI) | payer MEDICARE, BC, SELFPAY ==
[2019-12-21 15:44] VITALS: BMI 32.6
[2020-04-05 15:19] LABS: Absolute Neutrophil Count 9.2 X10^3/uL (2.0-7.7); Basophil# 0.07 X10^3/uL; Basophil% 0.5 % (0-1); Eosinophil# 0.55 X10^3/uL; Eosinophils% 4.1 % (0-5); Hematocrit 44.5 % (37-47); Hemoglobin 12.6 g/dL (12.0-15.0); Lymphocyte % 19.6 % (19-41); Mean Corp Hgb Conc 28.3 g/dL (32-36); Mean Corpuscular Hgb 26.8 pg (27.0-32.0); Mean Corpuscular Volume 94.5 fL (81-99); Mean Platelet Vol. 10.6 fl (6.2-12.0); Monocyte# 0.81 X10^3/uL; Monocyte% 6.1 % (0-10); NRBC Flagged by Analyzer 0 % (0-5); Neutrophil # 9.17 X10^3/uL (2.7-7.7); Neutrophil % 69.1 % (47-70); Platelet Count 542 K/mm3 (150-450); RBC Distribution Width CV 17.2 % (11.6-14.6); RBC Distribution Width SD 59.5 fl (35.1-43.9); Red Blood Count 4.71 M/mm3 (4.2-5.4); White Blood Count 13.3 K/mm3 (4.4-11.0)
[2020-04-05 15:30] LABS: Vitamin D,25 Hydroxy 12.6 ng/mL
[2020-04-05 15:39] LABS: ALB/GLOB Ratio 0.7 RATIO (0.9-2.4); AST(SGOT) 17 U/L (15-37); Alanine Aminotransfer ALT/SGPT 22 U/L (13-56); Albumin, Serum 3.5 g/dL (3.2-5.0); Alkaline Phosphatase 129 U/L (45-117); Anion Gap 9 (5-15); BUN 20 mg/dL (7-18); BUN/Creat Ratio 19.2 RATIO (10-20); Calcium,Total 9.2 mg/dL (8.5-10.1); Chloride 104 mmol/L (98-107); Creatinine, Serum 1.04 mg/dL (0.55-1.02); EST Glomerular Filtration Rate 55 mL/min (>60); Est Glom Filt Rate - Afr Amer 66 mL/min (>60); Globulin 4.9 g/dL (2.2-4.2); Glucose 83 mg/dL (74-106); Potassium 4.6 mmol/L (3.5-5.1); Protein, Total 8.4 g/dL (6.4-8.2); Sodium Level 137 mmol/L (136-145); Thyroid Stim Hormone (TSH) 2.38 uIU/mL (0.358-3.74)
== END ==
PROVIDERS: PCP Internal Medicine; Visit Provider Family Medicine Geriatric Medicine
DX: I10 Essential (primary) hypertension (principal); E55.9 Vitamin D deficiency, unspecified
CPT/HCPCS: 36415; 80053; 82306; 84443; 85025

== ENCOUNTER → 2020-07-13 13:53 | Outpatient (CLI) | payer MEDICARE, BC, SELFPAY ==
[2020-07-05 12:47] VITALS: BMI 32.5
[2020-07-13 17:03] LABS: Absolute Lymphocyte Count 2.36 X10^3/uL (0.83-4.51); Absolute Neutrophil Count 8.6 X10^3/uL (2.0-7.7); Basophil% 0.8 % (0-1); Eosinophil# 0.54 X10^3/uL; Eosinophils% 4.4 % (0-5); Hematocrit 44.2 % (37-47); Hemoglobin 12.8 g/dL (12.0-15.0); Lymphocyte # 2.36 X10^3/ul (0.83-4.51); Lymphocyte % 19.4 % (19-41); Mean Corpuscular Hgb 28.4 pg (27.0-32.0); Mean Platelet Vol. 10.6 fl (6.2-12.0); Monocyte# 0.53 X10^3/uL; Monocyte% 4.3 % (0-10); NRBC Flagged by Analyzer 0 % (0-5); Neutrophil # 8.59 X10^3/uL (2.7-7.7); Neutrophil % 70.5 % (47-70); POSITIVE MORPHOLOGY YES; Platelet Count 450 K/mm3 (150-450); RBC Distribution Width SD 68.1 fl (35.1-43.9); Red Blood Count 4.51 M/mm3 (4.2-5.4); White Blood Count 12.2 K/mm3 (4.4-11.0)
[2020-07-13 17:11] LABS: Differential Indicated SCAN CRITERIA MET
[2020-07-13 17:31] LABS: ALB/GLOB Ratio 0.8 RATIO (0.9-2.4); AST(SGOT) 21 U/L (15-37); Alanine Aminotransfer ALT/SGPT 25 U/L (13-56); Albumin, Serum 3.7 g/dL (3.2-5.0); Alkaline Phosphatase 107 U/L (45-117); Anion Gap 8 (5-15); BUN 24 mg/dL (7-18); BUN/Creat Ratio 26.1 RATIO (10-20); Calcium,Total 9.3 mg/dL (8.5-10.1); Chloride 103 mmol/L (98-107); Creatinine, Serum 0.92 mg/dL (0.55-1.02); EST Glomerular Filtration Rate 63 mL/min (>60); Est Glom Filt Rate - Afr Amer 76 mL/min (>60); Globulin 4.4 g/dL (2.2-4.2); Glucose 87 mg/dL (74-106); Potassium 4.9 mmol/L (3.5-5.1); Protein, Total 8.1 g/dL (6.4-8.2); Sodium Level 137 mmol/L (136-145); Thyroid Stim Hormone (TSH) 2.19 uIU/mL (0.358-3.74)
[2020-07-13 17:44] LABS: Anisocytosis 3+; Differential Comment SCANNED
[2020-07-13 17:45] LABS: Platelet Estimate ADEQUATE (ADEQ)
== END ==
PROVIDERS: PCP Family Medicine Geriatric Medicine; Visit Provider Family Medicine Geriatric Medicine
DX: I10 Essential (primary) hypertension (principal); E55.9 Vitamin D deficiency, unspecified
CPT/HCPCS: 36415; 80053; 82306; 84443; 85025

== ENCOUNTER → 2021-01-11 13:33 | Outpatient (CLI) | payer MEDICARE, BC, SELFPAY ==
[2021-01-11 17:21] LABS: Absolute Lymphocyte Count 2.76 X10^3/uL (0.83-4.51); Absolute Neutrophil Count 9.7 X10^3/uL (2.0-7.7); Basophil# 0.12 X10^3/uL; Basophil% 0.9 % (0-1); Eosinophil# 0.63 X10^3/uL; Eosinophils% 4.5 % (0-5); Hematocrit 45.4 % (37-47); Hemoglobin 13.7 g/dL (12.0-15.0); Lymphocyte # 2.76 X10^3/ul (0.83-4.51); Lymphocyte % 19.6 % (19-41); Mean Corp Hgb Conc 30.2 g/dL (32-36); Mean Corpuscular Hgb 31.4 pg (27.0-32.0); Mean Corpuscular Volume 103.9 fL (81-99); Mean Platelet Vol. 10.8 fl (6.2-12.0); Monocyte# 0.78 X10^3/uL; Monocyte% 5.5 % (0-10); NRBC Flagged by Analyzer 0 % (0-5); Neutrophil # 9.67 X10^3/uL (2.7-7.7); Neutrophil % 68.6 % (47-70); POSITIVE MORPHOLOGY YES; Platelet Count 421 K/mm3 (150-450); RBC Distribution Width CV 17.4 % (11.6-14.6); RBC Distribution Width SD 67.3 fl (35.1-43.9); Red Blood Count 4.37 M/mm3 (4.2-5.4); White Blood Count 14.1 K/mm3 (4.4-11.0)
[2021-01-11 17:24] LABS: Differential Indicated SCAN CRITERIA MET
[2021-01-11 17:55] LABS: ALB/GLOB Ratio 0.8 RATIO (0.9-2.4); AST(SGOT) 17 U/L (15-37); Alanine Aminotransfer ALT/SGPT 21 U/L (13-56); Albumin, Serum 3.6 g/dL (3.2-5.0); Alkaline Phosphatase 97 U/L (45-117); Anion Gap 6 (5-15); BUN 30 mg/dL (7-18); BUN/Creat Ratio 25.9 RATIO (10-20); Calcium,Total 9.2 mg/dL (8.5-10.1); Chloride 103 mmol/L (98-107); Creatinine, Serum 1.16 mg/dL (0.55-1.02); EST Glomerular Filtration Rate 48 mL/min (>60); Est Glom Filt Rate - Afr Amer 58 mL/min (>60); Globulin 4.6 g/dL (2.2-4.2); Glucose 91 mg/dL (74-106); Protein, Total 8.2 g/dL (6.4-8.2); Sodium Level 136 mmol/L (136-145); Thyroid Stim Hormone (TSH) 1.99 uIU/mL (0.358-3.74)
[2021-01-11 17:58] LABS: Anisocytosis RARE; Differential Comment SCANNED
== END ==
PROVIDERS: PCP Family Medicine Geriatric Medicine; Visit Provider Family Medicine Geriatric Medicine
DX: I10 Essential (primary) hypertension (principal); E55.9 Vitamin D deficiency, unspecified
CPT/HCPCS: 36415; 80053; 82306; 84443; 85025

== ENCOUNTER 2021-05-10 10:22 | Outpatient (CLI) | payer MEDICARE, SELFPAY ==
--- NOTE | 2021-05-10 10:34 | RAD_ITS ---
HISTORY: SOB. TECHNIQUE: XR Chest 2 Views. # of images incl. paperwork: 3. COMPARISON: 07/08/2019. FINDINGS: CARDIOMEDIASTINAL STRUCTURES: Cardiac silhouette not enlarged. Mediastinal contour unremarkable with calcification of the aorta. LUNGS: Radiographically clear. PLEURA: No pleural effusion or pneumothorax. OSSEOUS STRUCTURES: Degenerative change. RAD/Chest PA and Lateral IMPRESSION: No radiographic evidence of acute cardiopulmonary disease. at 1125 Reported and signed by: Rowena Cross MD Electronically Signed: Rowena Cross MD at 11:24 EST ,
[2021-05-10 11:34] LABS: BNP,B-Type NATRIURETIC PEPTIDE 21.9 pg/mL (0-100)
== END 2021-05-10 23:59 | disposition home or self-care (01) ==
PROVIDERS: PCP Family Medicine Geriatric Medicine; Visit Provider Nurse Practitioner Family
DX: R06.00 Dyspnea, unspecified (principal); R00.2 Palpitations
CPT/HCPCS: 36415; 71046; 83880

== ENCOUNTER 2021-05-30 14:40 | Outpatient (CLI) | payer MEDICARE, SELFPAY ==
--- NOTE | 2021-05-30 14:41 | BI_ITS ---
MAMMOGRAPHY - BILATERAL SCREENING REASON FOR EXAM: Female, 75 years old. Routine annual screening examination. PERTINENT HISTORY: Mother with breast cancer. TECHNIQUE: Digital bilateral breast khurram (3D mammographic acquisition) in the CC and MLO projections. 2-D mediolateral oblique (MLO) and craniocaudad (CC) views of both breasts were obtained. CAD: Full Field Digital Mammography with Computer Added Detection was performed. COMPARISON: Comparison is made with prior study dated 03/21/2020 and 03/02/2019. FINDINGS: Breast Composition: There are scattered areas of fibroglandular density. There are no dominant masses or suspicious calcifications. Stable asymmetry of breast tissue with more breast tissue is seen in the upper outer quadrant of the right breast as compared to the left side. Stable 5.5 mm well-defined nodule in the axillary region of the left breast. No other significant abnormalities are identified. There has been no significant change since the prior study. BI/SCRN MAMM (CAD)W/KHURRAM BILAT IMPRESSION: Stable bilateral screening mammogram. Yearly follow-up mammogram recommended. (A) ASSESSMENT CATEGORY: BIRADS Category 2: Benign. A letter regarding these results will be sent to the patient by the facility within 30 days. Approximately 10% of breast cancers are not detected by mammography. A normal mammogram should not delay biopsy of a clinically suspicious abnormality. [id number] Electronically Signed: Jhon Painting MD at 15:28 EDT ,
== END 2021-05-30 23:59 | disposition home or self-care (01) ==
PROVIDERS: PCP Family Medicine Geriatric Medicine; Visit Provider Internal Medicine Hematology & Oncology
DX: Z12.31 Encounter for screening mammogram for malignant neoplasm of breast (principal); Z80.3 Family history of malignant neoplasm of breast
CPT/HCPCS: 77063; 77067

== ENCOUNTER 2021-05-31 10:01 | Outpatient (CLI) | payer MEDICARE, SELFPAY ==
--- NOTE | 2021-05-31 10:06 | ECHOD_ITS ---
Reason For Study: DYSPNEA/SOB Procedure This was a 2D Doppler, Color Flow transthoracic echocardiogram. Exam performed in department. Left Ventricle Normal LV size. Left ventricular systolic function is normal. The estimated ejection fraction is 65 %. Stage 1 diastolic dysfunction. No regional wall motion abnormalities noted. Right Ventricle Normal RV size. Normal systolic function. Atria Normal left atrium. Normal right atrium. Mitral Valve Normal mitral valve. Tricuspid Valve Normal tricuspid valve. Pulmonic Valve Normal pulmonic valve. Great Vessels Normal aortic root. The pulmonary artery is normal size. Normal inferior vena cava. Pericardium/Pleural No pericardial effusion. MMode/2D Measurements & Calculations LVIDd: 4.7 cm IVSd: 1.0 cm Ao root diam: 2.9 cm LVIDs: 3.2 cm LVPWd: 0.98 cm FS: 31.1 % LAV(MOD-bp): 38.9 ml LVAd ap4: 27.6 cm2 SV(MOD-sp4): 51.3 ml LAV(MOD-bp) Indexed: 20.3 ml/m2 LVLd ap4: 7.8 cm LAV(MOD-sp2): 36.4 ml EDV(MOD-sp4): 80.8 ml LAV(MOD-sp4): 39.7 ml EDV(sp4-el): 83.3 ml LVAs ap4: 14.8 cm2 LVLs ap4: 6.4 cm ESV(MOD-sp4): 29.5 ml ESV(sp4-el): 28.8 ml EF(MOD-sp4): 63.5 % EF(sp4-el): 65.4 % SV(sp4-el): 54.5 ml LA dimension(2D): 3.4 cm LA A4 area: 16.7 cm2 RA A4 area: 13.0 cm2 Time Measurements MV dec time: 0.26 sec Doppler Measurements & Calculations MV E max dawit: 67.5 cm/sec Lat Peak E' Dawit: 9.1 cm/sec Med Peak E' Dawit: 6.5 cm/sec MV A max dawit: 99.9 cm/sec E/E' lat: 7.5 E/E' med: 10.3 MV E/A: 0.68 Ao V2 max: 168.7 cm/sec LV V1 max: 156.7 cm/sec PA V2 max: 101.0 cm/sec Ao max P.4 mmHg LV V1 max P.8 mmHg ECHO/Echo Complete Interpretation Summary Left ventricular systolic function is normal. Normal LV size. The estimated ejection fraction is 65 %. Stage 1 diastolic dysfunction. Ordering Physician: Chaitanya Kolb/Jonatan Barrios Referring Physician: Roof, Chaitanya H Performed By: Eva Angel RDCS
== END 2021-05-31 23:59 | disposition home or self-care (01) ==
LOC: CVS 10:05
PROVIDERS: PCP Family Medicine Geriatric Medicine; Referring Provider Nurse Practitioner Family; Visit Provider Nurse Practitioner Family
DX: R06.00 Dyspnea, unspecified (principal); I10 Essential (primary) hypertension; E78.00 Pure hypercholesterolemia, unspecified; Z86.711 Personal history of pulmonary embolism
CPT/HCPCS: 93306

== ENCOUNTER → 2021-07-24 | Outpatient (CLI) | payer MEDICARE, SELFPAY ==
[2021-07-24 12:33] LABS: Absolute Lymphocyte Count 2.04 X10^3/uL (0.83-4.51); Absolute Neutrophil Count 7.1 X10^3/uL (2.0-7.7); Basophil# 0.04 X10^3/uL; Basophil% 0.4 % (0-1); Eosinophil# 0.67 X10^3/uL; Eosinophils% 6.4 % (0-5); Hematocrit 44.7 % (37-47); Hemoglobin 12.9 g/dL (12.0-15.0); Lymphocyte # 2.04 X10^3/ul (0.83-4.51); Lymphocyte % 19.3 % (19-41); Mean Corp Hgb Conc 28.9 g/dL (32-36); Mean Corpuscular Hgb 29.5 pg (27.0-32.0); Mean Corpuscular Volume 102.3 fL (81-99); Mean Platelet Vol. 11.1 fl (6.2-12.0); Monocyte# 0.66 X10^3/uL; Monocyte% 6.3 % (0-10); NRBC Flagged by Analyzer 0.2 % (0-5); Neutrophil # 7.06 X10^3/uL (2.7-7.7); Neutrophil % 66.8 % (47-70); Platelet Count 401 K/mm3 (150-450); RBC Distribution Width CV 15.8 % (11.6-14.6); Red Blood Count 4.37 M/mm3 (4.2-5.4); White Blood Count 10.6 K/mm3 (4.4-11.0)
[2021-07-24 12:43] LABS: Vitamin D,25 Hydroxy 16.8 ng/mL
[2021-07-24 12:56] LABS: ALB/GLOB Ratio 0.7 RATIO (0.9-2.4); AST(SGOT) 27 U/L (15-37); Alanine Aminotransfer ALT/SGPT 33 U/L (13-56); Albumin, Serum 3.4 g/dL (3.2-5.0); Alkaline Phosphatase 108 U/L (45-117); Anion Gap 6 (5-15); BUN 18 mg/dL (7-18); BUN/Creat Ratio 17.3 RATIO (10-20); Calcium,Total 9.2 mg/dL (8.5-10.1); Chloride 106 mmol/L (98-107); Creatinine, Serum 1.04 mg/dL (0.55-1.02); EST Glomerular Filtration Rate 55 mL/min (>60); Est Glom Filt Rate - Afr Amer 66 mL/min (>60); Globulin 4.7 g/dL (2.2-4.2); Glucose 112 mg/dL (74-106); Potassium 4.2 mmol/L (3.5-5.1); Protein, Total 8.1 g/dL (6.4-8.2); Sodium Level 139 mmol/L (136-145); Thyroid Stim Hormone (TSH) 2.27 uIU/mL (0.358-3.74)
== END | disposition home or self-care (01) ==
LOC: POLAB3 11:34
PROVIDERS: PCP Family Medicine Geriatric Medicine; Visit Provider Family Medicine Geriatric Medicine
DX: I10 Essential (primary) hypertension (principal); E55.9 Vitamin D deficiency, unspecified
CPT/HCPCS: 36415; 80053; 82306; 84443; 85025

== ENCOUNTER 2021-09-08 13:21 | Observation (INO) | payer MEDICARE, SELFPAY ==
[2021-09-08] VITALS (9 sets, daily range): BP systolic 140–218; BP diastolic 68–119; PULSE 72–94; RESP 16–18; TEMP 36.5–36.9; O2SAT 94–98; BMI 31.1; BMI 30.7
--- NOTE | 2021-09-08 13:51 | EKG12_ITS ---
Test Reason : Blood Pressure : / mmHG Vent. Rate : 081 BPM Atrial Rate : 081 BPM P-R Int : 166 ms QRS Dur : 092 ms QT Int : 388 ms P-R-T Axes : 057 002 062 degrees QTc Int : 450 ms Normal sinus rhythm Normal ECG Confirmed by TERESO BENNETT MD ([id number]), tape editor BERTHA PHILIP ([id number]) on 09/12/2021 8:53:44 AM Referred By: PL Confirmed By:TERESO BENNETT MD
--- NOTE | 2021-09-08 13:51 | CT_ITS ---
STUDY: CT BRAIN WITHOUT CONTRAST REASON FOR EXAM: Female, 76 years old. Confusion and dementia. RADIATION DOSAGE (If Supplied By Facility): CTDIvol = ( 47.06 ) mGy, DLP = ( 819.74 ) mGycm TECHNIQUE: Transaxial CT imaging of the brain was performed without administration of intravenous contrast material. Individualized dose optimization techniques were used for this CT. COMPARISON: No relevant priors. FINDINGS: Normal soft tissue structures. There is hyperostosis frontalis internus. There is mild cerebral atrophy with widening of the extra-axial spaces and ventricular dilatation. There are areas of decreased attenuation within the white matter tracts of the supratentorial brain, consistent with microvascular disease changes. Normal basal ganglia and thalami. Normal brainstem. Normal cerebellum. There is no intracranial hemorrhage. There are no findings of an acute ischemic infarction. Minimal mucosal thickening of the right sphenoid sinus. CT/Brain/Head without Contrast IMPRESSION: Chronic involutional changes of the brain. Minimal mucosal thickening of the right sphenoid sinus. Electronically Signed: Jhon Painting MD at 14:33 EDT ,
--- NOTE | 2021-09-08 13:53 | EX.ED.DYSGE1 ---
HPI History of Present Illness Chief Complaint: Confusion Informant: patient and family Narrative Narrative: Patient states that since Saturday she has occasionally just felt loopy. She is never actually been confused. She just feels not quite herself. She did state that she texts on the phone a lot. In a couple time she even had trouble remembering where the letters were on the keyboard. But she never had any discoordination. She has never had speech problems or expressive or receptive aphasia. She has felt as though she might of had a slight fever off and on but has not measured an elevated temperature. She has been moving her bowels a little bit more but no black or bloody stool. No actual diarrhea but they have been softer. She denies any real urinary symptoms cough or trouble breathing. No headache. She has not had any discoordination. No weakness. No sensory changes. Family really has not noticed any major issues. Patient states she feels well right now. Patient does have polycythemia vera and is on hydroxyurea but this is not new or different. She has high blood pressure. She is also had pulmonary emboli and is on Xarelto and is taking it. [facility] Medical History Anemia Chronic kidney disease (CKD) Elevated troponin Essential (primary) hypertension Hepatic steatosis High blood hemoglobin A2 History of pulmonary embolus (PE) (12/2018) HLD (hyperlipidemia) Hypercoagulable state Hypoxemia Juvenile rheumatic fever Lung nodule Obesity (BMI 30-39.9) Osteoarthritis Pulmonary embolism, bilateral (12/2018) Right ventricular diastolic dysfunction Secondary pulmonary arterial hypertension Home Medications rivaroxaban 20 mg tablet (Xarelto) 20 mg PO DAILY #30 tabs 04/16/19 [Rx Last Taken 09/07/21] Handicap Placard #1 ea 07/05/20 [Rx Last Taken Unknown] metoprolol succinate 50 mg tablet,extended release 24 hr 50 mg PO QHS blood pressure #90 tabs 09/06/20 [Rx Last Taken 09/07/21] hydroxyurea 500 mg capsule 1,000 mg PO DAILY 05/10/21 [History Last Taken 09/07/21] acetaminophen 500 mg tablet 1,000 mg PO BID back pain 09/08/21 [History Last Taken 09/08/21] Allergy/AdvReac Type Severity Reaction Status Date / Time No Known Allergies Allergy Verified 09/08/21 13:25 Family History Mother Arthritis Son DVT (deep venous thrombosis) Daughter DVT (deep venous thrombosis) Surgical History History of appendectomy History of bilateral knee replacement History of cataract extraction History of cataract surgery History of left knee replacement History of right hip replacement History of right hip replacement History of right knee joint replacement S/P tendon repair Social History Smoking Status: Never smoker second hand exposure: No alcohol intake: current alcohol intake frequency: holidays/special occasions only substance use type: does not use caffeine: Yes Type: coffee Number of servings: 1 what type of physical activity do you participate in: none additional social history: Lives with daughter and son-in-law ROS ROS ED Constitutional Constitutional ED: Reports subjective; Denies chills Eyes Eyes: Denies blurry vision, change in vision or diplopia ENT ENT ED: Denies rhinorrhea Cardiovascular Cardiovascular: Denies chest pain, palpitations or racing heartbeat Respiratory/Chest Respiratory/Chest: Denies cough or dyspnea Gastrointestinal Gastrointestinal: Reports other Details: Softer and more frequent stools as in history of present illness. ; Denies abdominal pain, nausea or vomiting Genitourinary Genitourinary ED: Denies dysuria, hematuria or urinary frequency Musculoskeletal Musculoskeletal: Denies arthralgias or myalgias Integumentary Denies rash Neurologic Neurologic: Reports other Details: See history of present illness ; Denies headache(s), paresthesias or weakness Psychiatric Psychiatric: Denies anxiety Endocrine Endocrinology: Denies polydipsia or polyuria Hematologic/Lymphatic Hematologic/Lymphatic: Reports easy bleeding and easy bruising Allergic/Immunologic Allergic/Immunologic ED: Denies urticaria EXAM Physical Exam Const Vital Signs: 09/08/21 13:22 09/08/21 14:01 09/08/21 15:33 Temperature 97.7 F L Temperature Source Temporal Pulse Rate 93 72 Respiratory Rate 18 16 Respiratory Pattern Normal Blood Pressure 147/109 H 183/88 H Blood Pressure Mean 121 119 Pulse Ox 96 98 Oxygen Delivery Method Room Air Room Air Positive well nourished and well developed General Appearance ED: well developed and NAD HEENT Reports moist mucous membranes Eyes PERRL and EOMs intact bilaterally General Eye ED: Negative for pale conjunctiva or scleral icterus Neck supple Resp normal respiratory effort and clear to auscultation bilaterally Auscultation: Negative for rales, rhonchi, wheezes or diminished lung sounds Cardio regular rate, regular rhythm and no murmurs GI normal to inspection, nondistended, normoactive bowel sounds, non-tender and non-distended Back/Spine no CVA tenderness Extremity normal to inspection Extremity Narrative: No edema or cords. Neuro oriented x3 Neuro Narrative: NIH is 0. There is no focal deficit. She has a sense of humor. 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 She is very quick winded. There is no indication of confusion. She is alert to person place time situation current events and president [facility]. She also has opinions on many of these issues. Psych mental status grossly normal Attitude: No agitated Mood & Affect: Negative for depressed, anxious or tearful Skin no rashes or lesions noted and no wounds MDM MDM MDM Narrative Medical decision making narrative: Patient does have a slight elevation of her white count which is nonspecific finding. Platelets were also slightly high. Electrolytes show no marked abnormalities. Glucose was minimally up. Liver function tests were normal. Urine was completely clean. CT of the head showed chronic changes but nothing acute. Chest x-ray showed nothing acute. Since there is no other explanation for the symptoms such as UTI, I do have a teleneurology evaluation pending. I did go back in and talk with the patient and update her on the current information. Through her daughter she is now admitting that she has had intermittent episodes where she gets tingling in her right fingertips. She is not having it now. She also states she has gotten tingling on her lips a couple times. She is not sure exactly what area is though. She thinks it is her upper lip but not sure left or right. This makes me a little bit more concerned about potential TIA having these 2 symptoms. Especially since her difficulty finding letters could be related to speech and language on the left side of the brain and she had right hand tingling. Although she is on Xarelto, she is not on antiplatelet therapy. We are awaiting SOC/neurology evaluation. However, since she has both right hand symptoms facial symptoms and what could be speech-language, this increases concern for TIA. We discussed case with the hospitalist. We will bring her in for further evaluation. We will either get SOC evaluation here or upstairs. There is evidently an issue with the system connecting at this time. Lab Data Attestation: I reviewed the patient's lab results. Labs: Laboratory Results - last 24 hr 09/08/21 09/08/21 09/08/21 13:50 13:50 13:50 WBC 16.0 H RBC 4.34 Hgb 12.5 Hct 42.9 MCV 98.8 MCH 28.8 MCHC 29.1 L RDW Std Deviation 65.1 H RDW Coeff of Iveth 18.0 H Plt Count 640 H MPV 11.1 Immature Gran % (Auto) 0.900 Neut % (Auto) 70.2 H Lymph % (Auto) 16.3 L [place] % (Auto) 8.2 Eos % (Auto) 3.8 Baso % (Auto) 0.6 Absolute Neuts (auto) 11.2 H Absolute Lymphs (auto) 2.60 Nucleated RBC % 0.3 Anisocytosis 1+ Sodium 138 Potassium 3.9 Chloride 105 Carbon Dioxide 25.0 Anion Gap 8 BUN 21 H Creatinine 0.92 Estim Creat Clear Calc 45.35 Est GFR (MDRD) Af Amer 76 Est GFR (MDRD) Non-Af 62 BUN/Creatinine Ratio 22.7 H Glucose 116 H Calcium 9.2 Total Bilirubin 0.30 AST 20 ALT 22 Alkaline Phosphatase 100 Troponin I High Sens 6 Total Protein 7.9 Albumin 3.3 Globulin 4.6 H Albumin/Globulin Ratio 0.7 L Urine Color Yellow Urine Clarity Clear Urine pH 6.5 Ur Specific [place] 1.010 Urine Protein 15 H Urine Glucose (UA) Normal Urine Ketones Negative Urine Occult Blood Negative Urine Nitrite Negative Urine Bilirubin Negative Urine Urobilinogen Normal Ur Leukocyte Esterase Negative Urine RBC 0 SEEN Urine WBC 0 SEEN Ur Squamous Epith Cells 0 SEEN Urine Bacteria 0 SEEN Urine Mucus 0 SEEN Radiography Diagnostic Testing: Clinical Impression(s) from Imaging Studies Brain CT 09/08/21 13:51 IMPRESSION: Chronic involutional changes of the brain. Minimal mucosal thickening of the right sphenoid sinus. Electronically Signed: Jhon Painting MD at 14:33 EDT , Chest X-Ray 09/08/21 14:15 IMPRESSION: No acute abnormality is seen. Electronically Signed: Jhon Painting MD at 14:31 EDT , EKG Initial EKG: Comments: EKG done as part of generalized weakness work-up read by me shows normal sinus rhythm with overall rate of 81. No ventricular ectopy. No acute ST elevation or depression. MD interval, QRS duration and QTC are normal. Discharge Plan Dx/Rx/DC Orders Clinical Impression: TIA (transient ischemic attack), Episodic confusion, Paresthesias in right hand Disposition Disposition: Acute Care Hospital [facility] [place] [facility]
[2021-09-08 13:59] LABS: Bacteria 0 SEEN /hpf (None Seen); Mucous, Urine 0 SEEN /hpf (<or=2+); Red Blood Cells-Urine 0 SEEN /hpf (0-5); Squamous Epithelial Cells - UA 0 SEEN /hpf (5-10); White Blood Cells 0 SEEN /hpf (0-5)
[2021-09-08 14:07] LABS: Absolute Neutrophil Count 11.2 X10^3/uL (2.0-7.7); Basophil# 0.09 X10^3/uL; Basophil% 0.6 % (0-1); Color, Urine Yellow (Yellow); Eosinophils% 3.8 % (0-5); Glucose, Dipstick Normal (Normal); Hematocrit 42.9 % (37-47); Hemoglobin 12.5 g/dL (12.0-15.0); Ketone-Dipstick Negative (Negative); Leukocyte Esterase-Dipstick Negative /ul (Negative); Lymphocyte % 16.3 % (19-41); Mean Corp Hgb Conc 29.1 g/dL (32-36); Mean Corpuscular Hgb 28.8 pg (27.0-32.0); Mean Corpuscular Volume 98.8 fL (81-99); Mean Platelet Vol. 11.1 fl (6.2-12.0); Monocyte% 8.2 % (0-10); NRBC Flagged by Analyzer 0.3 % (0-5); Neutrophil # 11.22 X10^3/uL (2.7-7.7); Neutrophil % 70.2 % (47-70); Nitrite-Dipstick Negative (Negative); Occult Blood-Urine Negative /ul (Negative); POSITIVE MORPHOLOGY YES; Platelet Count 640 K/mm3 (150-450); Protein-Dipstick 15 mg/dl (Negative); RBC Distribution Width SD 65.1 fl (35.1-43.9); Red Blood Count 4.34 M/mm3 (4.2-5.4); Urine Bilirubin Dipstick Negative (Negative); Urine Clarity Clear (Clear); Urine Urobilinogen Normal (Normal); Urine pH 6.5 (5.0 - 8.0)
[2021-09-08 14:08] LABS: Differential Indicated SCAN CRITERIA MET
--- NOTE | 2021-09-08 14:15 | RAD_ITS ---
STUDY: X-RAY CHEST REASON FOR EXAM: Female, 76 years old. Fever and confusion. TECHNIQUE: Single AP portable view of the chest. COMPARISON: Comparison is made with prior study of 05/10/2021. FINDINGS: EKG electrodes are seen. The lungs are clear and expanded. There is no demonstrated pleural abnormality. Normal size heart. Normal mediastinum and renny. Normal visualized pulmonary arteries. There is atherosclerotic calcification of the aortic arch with tortuosity. There are degenerative changes of the visualized thoracic spine. Normal visualized ribs, clavicles, and shoulders. There is no demonstrated abnormality of the visualized soft tissue structures of the upper abdomen. RAD/Chest 1 View (Portable) IMPRESSION: No acute abnormality is seen. Electronically Signed: Jhon Painting MD at 14:31 EDT ,
[2021-09-08 14:19] LABS: ALB/GLOB Ratio 0.7 RATIO (0.9-2.4); AST(SGOT) 20 U/L (15-37); Alanine Aminotransfer ALT/SGPT 22 U/L (13-56); Albumin, Serum 3.3 g/dL (3.2-5.0); Alkaline Phosphatase 100 U/L (45-117); Anion Gap 8 (5-15); BUN 21 mg/dL (7-18); BUN/Creat Ratio 22.7 RATIO (10-20); Calcium,Total 9.2 mg/dL (8.5-10.1); Chloride 105 mmol/L (98-107); Creatinine, Serum 0.92 mg/dL (0.55-1.02); EST Glomerular Filtration Rate 62 mL/min (>60); Est Glom Filt Rate - Afr Amer 76 mL/min (>60); Estimated Creatinine Clearance 45.35 ml/min; Globulin 4.6 g/dL (2.2-4.2); Glucose 116 mg/dL (74-106); Potassium 3.9 mmol/L (3.5-5.1); Protein, Total 7.9 g/dL (6.4-8.2); Sodium Level 138 mmol/L (136-145); Troponin-I HS 6 pg/mL (3.0-54.0)
[2021-09-08 14:34] LABS: Anisocytosis 1+
--- NOTE | 2021-09-08 14:45 | TELEMED_ITS ---
SOC Telemed has confirmed receipt of a request for visit. This document confirms receipt of the order initiating the consult. To find the results of the consultation, please view the patient's reports for the scanned Telemed Consult.
--- NOTE | 2021-09-08 16:59 | NURSING ---
HOSPITALIST FOR DR PA
--- NOTE | 2021-09-08 16:59 | ED.RN ---
DR PA AWARE OF HER CONSISTENT ELEVATED BP
--- NOTE | 2021-09-08 17:02 | NURSING ---
PCU OBS [place] TIA
--- NOTE | 2021-09-08 17:09 | HP.PCM.HOS_ITS ---
HPI - General General Date of Admission: 09/08/21 HPI Narrative HANSEL NEWMAN, is a 76 F who presents to the hospital with confusion. She has been having episodic confusion since Saturday, she describes it as feeling loopy. She states that normally she talks a lot on her phone but for the last several days she has been having difficulty finding the letters on the keyboard and knowing where they are. She also endorsed some episodic fingertip tingling and lip tingling. She is outside of the tPA window because of this however in the ER they attempted to get a an SOC neurology consult however the connection with the computer has not been working. UA was unremarkable did not show urine infection and the chest x-ray was unremarkable. CT of the brain was normal. The only major abnormality is a leukocytosis of 16 without an obvious source as well as a blood pressure with systolics at 203. PFSH Medical History Anemia Chronic kidney disease (CKD) Elevated troponin Essential (primary) hypertension Hepatic steatosis High blood hemoglobin A2 History of pulmonary embolus (PE) (12/2018) HLD (hyperlipidemia) Hypercoagulable state Hypoxemia Juvenile rheumatic fever Lung nodule Obesity (BMI 30-39.9) Osteoarthritis Pulmonary embolism, bilateral (12/2018) Right ventricular diastolic dysfunction Secondary pulmonary arterial hypertension Home Medications rivaroxaban 20 mg tablet (Xarelto) 20 mg PO DAILY #30 tabs 04/16/19 [Rx Last Taken 09/07/21] Handicap Placard #1 ea 07/05/20 [Rx Last Taken Unknown] metoprolol succinate 50 mg tablet,extended release 24 hr 50 mg PO QHS blood pressure #90 tabs 09/06/20 [Rx Last Taken 09/07/21] hydroxyurea 500 mg capsule 1,000 mg PO DAILY 05/10/21 [History Last Taken 09/07/21] acetaminophen 500 mg tablet 1,000 mg PO BID back pain 09/08/21 [History Last Taken 09/08/21] Allergy/AdvReac Type Severity Reaction Status Date / Time No Known Allergies Allergy Verified 09/08/21 13:25 Family History Mother Arthritis Son DVT (deep venous thrombosis) Daughter DVT (deep venous thrombosis) Surgical History History of appendectomy History of bilateral knee replacement History of cataract extraction History of cataract surgery History of left knee replacement History of right hip replacement History of right hip replacement History of right knee joint replacement S/P tendon repair Social History Smoking Status: Never smoker second hand exposure: No alcohol intake: current alcohol intake frequency: holidays/special occasions only substance use type: does not use caffeine: Yes Type: coffee Number of servings: 1 what type of physical activity do you participate in: none additional social history: Lives with daughter and son-in-law ROS Constitutional Constitutional: Reports other Details: Low-grade temperatures ; Denies chills, fatigue, fever(s) or malaise Eyes Eyes: Denies blurry vision ENT HEENT: Denies headache(s) or nasal discharge Cardiovascular Cardiovascular: Denies chest pain, dyspnea on exertion or syncope Respiratory/Chest Respiratory/Chest: Denies cough, shortness of breath at rest or shortness of breath with exertion Gastrointestinal Gastrointestinal: Reports other Details: Soft stools ; Denies constipation, diarrhea, nausea or vomiting Genitourinary Genitourinary: Denies dysuria Neurologic Neurologic: Reports confusion and numbness; Denies focal weakness or tremor(s) Psychiatric Psychiatric: Denies anxiety or depression Vital Signs Vital Signs Vital Signs: 09/08/21 13:22 09/08/21 14:01 09/08/21 15:33 Temperature 97.7 F L Temperature Source Temporal Pulse Rate 93 72 Respiratory Rate 18 16 Respiratory Pattern Normal Blood Pressure 147/109 H 183/88 H Blood Pressure Mean 121 119 Pulse Ox 96 98 Oxygen Delivery Method Room Air Room Air 09/08/21 16:59 Temperature Temperature Source Pulse Rate 78 Respiratory Rate 16 Respiratory Pattern Blood Pressure 203/95 H Blood Pressure Mean 131 Pulse Ox 98 Oxygen Delivery Method Room Air Weight Weight: 187 lb 6.287 oz Body Mass Index (BMI) 31.1 Physical Exam Const alert, oriented x3 and no apparent distress General Appearance: cooperative HEENT normocephalic and moist oral mucous membranes Eyes PERRL, EOMs intact bilaterally and conjunctivae normal Neck supple and no JVD Resp normal respiratory effort, no retractions, no use of accessory muscles and clear to auscultation bilaterally Auscultation: Negative for crackles, rales, rhonchi or wheezes Cardio regular rate, regular rhythm, S1 normal heart sound, S2 normal heart sound and no murmurs GI soft to palpation, non-tender and non-distended; Negative for hepatosplenomegaly Extremity no clubbing, cyanosis or edema Skin no rashes or lesions noted Neuro oriented x3, CN's II-XII intact bilaterally, moves all extremities, no focal motor deficits and no sensory deficits noted Psych affect normal Appearance: appropriate Results Lab / Micro Data Result Diagrams: 09/08/21 13:50 09/08/21 13:50 Labs: Laboratory Results - last 24 hr 09/08/21 13:50: WBC 16.0 H, RBC 4.34, Hgb 12.5, Hct 42.9, MCV 98.8, MCH 28.8, MCHC 29.1 L, RDW Std Deviation 65.1 H, RDW Coeff of Iveth 18.0 H, Plt Count 640 H, MPV 11.1, Immature Gran % (Auto) 0.900, Neut % (Auto) 70.2 H, Lymph % (Auto) 16.3 L, [place] % (Auto) 8.2, Eos % (Auto) 3.8, Baso % (Auto) 0.6, Absolute Neuts (auto) 11.2 H, Absolute Lymphs (auto) 2.60, Nucleated RBC % 0.3, Anisocytosis 1+ 09/08/21 13:50: Sodium 138, Potassium 3.9, Chloride 105, Carbon Dioxide 25.0, Anion Gap 8, BUN 21 H, Creatinine 0.92, Estim Creat Clear Calc 45.35, Est GFR (M DRD) Af Amer 76, Est GFR (MDRD) Non-Af 62, BUN/Creatinine Ratio 22.7 H, Glucose 116 H, Calcium 9.2, Total Bilirubin 0.30, AST 20, ALT 22, Alkaline Phosphatase 100, Troponin I High Sens 6, Total Protein 7.9, Albumin 3.3, Globulin 4.6 H, Albumin/Globulin Ratio 0.7 L 09/08/21 13:50: Urine Color Yellow, Urine Clarity Clear, Urine pH 6.5, Ur Specific [place] 1.010, Urine Protein 15 H, Urine Glucose (UA) Normal, Urine Ketones Negative, Urine Occult Blood Negative, Urine Nitrite Negative, Urine Bilirubin Negative, Urine Urobilinogen Normal, Ur Leukocyte Esterase Negative, Urine RBC 0 SEEN, Urine WBC 0 SEEN, Ur Squamous Epith Cells 0 SEEN, Urine Bacteria 0 SEEN, Urine Mucus 0 SEEN Radiology Impression Brain CT 09/08/21 13:51 IMPRESSION: Chronic involutional changes of the brain. Minimal mucosal thickening of the right sphenoid sinus. Electronically Signed: Jhon Painting MD at 14:33 EDT , Chest X-Ray 09/08/21 14:15 IMPRESSION: No acute abnormality is seen. Electronically Signed: Jhon Painting MD at 14:31 EDT , Assessment & Plan Assessment/Plan (1) Episodic confusion: (2) TIA (transient ischemic attack): (3) Paresthesias in right hand: PLAN: Plan 1. Confusion with possible TIA ? We will obtain an MRI ? She did have an echo in May of her shortness of breath which was unremarkable ? She is on Xarelto for history of blood clots ? She does endorse some softer stools with a white count of 16 so if this does progress to full-blown diarrhea then can obtain stool cultures ? SOC neurology consult is pending ? NIH of 0 ? Will allow permissive hypertension, systolics are at 203 currently she does also have labetalol and hydralazine as needed if necessary 2. History of blood clots/polycythemia vera ? Continue with her Xarelto and hydroxyurea 3. Hypertension ? Will allow permissive hypertension ? Can resume her home metoprolol DVT: Xarelto Charges/Coding Visit Charges OBSV E&M: 91277 Initial observation care L2
--- NOTE | 2021-09-08 18:23 | MRI_ITS ---
EXAM: MR HEAD WITHOUT INTRAVENOUS CONTRAST CLINICAL INDICATION: TIA, aphasia, AMS, lip tingling episodes TECHNIQUE: Multiplanar and multisequence MR images of the brain were obtained without intravenous contrast. This report was created using [employer] report generation technology. COMPARISON: CT done earlier FINDINGS: BRAIN AND EXTRA-AXIAL SPACES: Chronic involutional changes of the brain. No intra- or extra-axial hemorrhage. No evidence of acute infarct. No intracranial mass or mass effect. There is preservation of the aguiar/white matter interface. Posterior fossa structures are unremarkable. Ventricles are appropriate for age. No hydrocephalus. Basal cisterns are patent. SELLA: Unremarkable. Normal sella turcica, pituitary gland, infundibular stalk, optic chiasm and hypothalamus. AUDITORY SYSTEM: Unremarkable. The internal auditory canals are patent. BONES/JOINTS: Unremarkable. No discrete lytic or blastic abnormalities. SINUSES: Unremarkable as visualized. Clear. MASTOID AIR CELLS: Unremarkable as visualized. Clear. ORBITS: Unremarkable as visualized. Both globes, extraocular muscles, optic nerves and retrobulbar fat appear unremarkable. VASCULATURE: Unremarkable as visualized. Normal flow voids in the major intracranial circulation. MRI/Brain without Contrast IMPRESSION: Chronic involutional changes of the brain. Electronically Signed: Jack Gabriel MD at 20:38 EDT ,
[2021-09-08] MEDS: Metoprolol(XL)Succ 50 MG Tablet PO (21:32)
[2021-09-08] MEDS: Rivaroxaban 20 MG Tablet PO (21:32)
[2021-09-09 03:26] VITALS: PULSE 70
[2021-09-09 03:30] VITALS: BP 117/70; PULSE 74; RESP 16; TEMP 36.6; O2SAT 94
[2021-09-09 06:03] LABS: Absolute Lymphocyte Count 1.83 X10^3/uL (0.83-4.51); Absolute Neutrophil Count 8.8 X10^3/uL (2.0-7.7); Basophil# 0.08 X10^3/uL; Basophil% 0.6 % (0-1); Eosinophil# 0.75 X10^3/uL; Eosinophils% 5.9 % (0-5); Hemoglobin 11.7 g/dL (12.0-15.0); Lymphocyte # 1.83 X10^3/ul (0.83-4.51); Lymphocyte % 14.3 % (19-41); Mean Corp Hgb Conc 29.3 g/dL (32-36); Mean Corpuscular Hgb 28.8 pg (27.0-32.0); Mean Corpuscular Volume 98.5 fL (81-99); Mean Platelet Vol. 11.1 fl (6.2-12.0); Monocyte% 9.4 % (0-10); NRBC Flagged by Analyzer 0.3 % (0-5); Neutrophil # 8.81 X10^3/uL (2.7-7.7); Neutrophil % 68.8 % (47-70); Platelet Count 586 K/mm3 (150-450); RBC Distribution Width CV 17.9 % (11.6-14.6); RBC Distribution Width SD 63.9 fl (35.1-43.9); Red Blood Count 4.06 M/mm3 (4.2-5.4); White Blood Count 12.8 K/mm3 (4.4-11.0)
[2021-09-09 06:42] LABS: Anion Gap 6 (5-15); BUN 16 mg/dL (7-18); BUN/Creat Ratio 22.5 RATIO (10-20); Chloride 105 mmol/L (98-107); Cholesterol 184 mg/dL (200); Creatinine, Serum 0.71 mg/dL (0.55-1.02); EST Glomerular Filtration Rate 84 mL/min (>60); Est Glom Filt Rate - Afr Amer 102 mL/min (>60); Estimated Creatinine Clearance 41.72 ml/min; Glucose 105 mg/dL (74-106); High Density Lipoprotein 40 mg/dL; Potassium 3.9 mmol/L (3.5-5.1); Sodium Level 138 mmol/L (136-145); Triglycerides 121 mg/dL; Very Low Density Lipoprotein 24 mg/dL (5-40)
[2021-09-09 07:05] VITALS: PULSE 83
[2021-09-09 07:30] VITALS: O2SAT 92
[2021-09-09 08:40] VITALS: BP 139/66; PULSE 69; RESP 18; TEMP 36.4; O2SAT 95
[2021-09-09] MEDS: Acetaminophen 325 MG Tablet 650 MG PO (08:46)
[2021-09-09] MEDS: 0.9% Saline Lock 10 ML Syringe IV (08:46)
[2021-09-09 08:47] LABS: Thyroid Stim Hormone (TSH) 2.06 uIU/mL (0.358-3.74)
[2021-09-09] MEDS: Hydroxyurea 500 MG Capsule 1000 MG PO (08:47)
[2021-09-09 09:27] LABS: Vitamin B12 346 pg/mL (211-911)
--- NOTE | 2021-09-09 09:58 | MRI_ITS ---
STUDY: MRA OF THE HEAD WITHOUT CONTRAST REASON FOR EXAM: Female, 76 years old. CVA TECHNIQUE: 3-D ibrw-jg-ngnjbc (TOF) imaging was performed with MIPs. The study was performed unenhanced. COMPARISON: 09/08/2021 FINDINGS: Petrous, cavernous and supraclinoid segments of the internal carotid arteries are patent. The bilateral middle cerebral arteries are patent. The anterior cerebral arteries are patent. Essentially codominant vertebral arteries are seen. Vertebrobasilar junction is patent. The basilar artery is patent. Posterior cerebral arteries are patent. Patent bilateral posterior communicating arteries. MRI/MRA Head ONLY without Contrast IMPRESSION: No evidence for intracranial large vessel occlusion. Electronically Signed: Mike Arevalo MD at 12:41 EDT ,
--- NOTE | 2021-09-09 09:58 | MRI_ITS ---
STUDY: MRA NECK WITH AND WITHOUT CONTRAST REASON FOR EXAM: Female, 76 years old. CVA TECHNIQUE: 3-D akfg-tt-rnublk (TOF) imaging was performed in an 1.5 T MRI scanner. dotarem 15ml iv was administered for the contrast enhanced images. COMPARISON: None. FINDINGS: The origin of the great vessels are patent. The bilateral common carotid arteries are patent. The carotid bifurcations are grossly patent however poorly visualized due to patient motion. There is venous contamination also present the origin of the vertebral arteries are not seen. The foraminal and extraforaminal segments of the vertebral arteries are grossly patent. Codominant vertebral arteries are seen. MRI/MRA Neck WITH and W/O Contrast IMPRESSION: Limited examination due to patient motion and poor oral contrast bolus timing with venous contamination. No evidence for extracranial carotid or vertebral artery occlusion. No significant stenosis based on this examination. Electronically Signed: Mike Arevalo MD at 12:36 EDT ,
--- NOTE | 2021-09-09 11:45 | CASEMGMT ---
RN CM Face to Face with patient for initial transition planning/care coordination assessment. RN CM introduced self and role at [facility]. Patient lying in bed, alert and oriented. Patient willing to participate in assessment and is able to answer all questions appropriately. Care providers, pharmacy, and demographics verified. Patient wishes to discharge home, denies need for home health at this time. Patient states she has no further needs or concerns at this time. CM to follow for discharge planning needs that may arise. PCP: Thanh Specialists: Shelly, oncologist; Sophie, personal care home administrator Preferred Pharmacy: [facility] retail at discharge Insurance: [facility] Prescription Benefit: yes Living Will/HPOA: yes, daughter Geetha Louise HPOA LNOK: daughter Living Arrangements: Patient lives with daughter and SHAWANDA in a single story home with 2 steps and grab bar to enter. Patient states she is independent at home. Transportation: self, daughter DME/HHC: Patient states she has walker, raised toilet, and cpap that she does not wear at home. Patient has had HHC in the past. No previous SNF. Disposition Plan: Patient to discharge home with famiy support and follow-up plans in place. Tanja DURHAM, RN, CM
--- NOTE | 2021-09-09 13:12 | DCINST_ITS ---
Discharge Instructions Diet Discharge Diet: Low fat / Low cholesterol Activity Discharge Activity: Return to Normal Activity Dressing / Incision Call your doctor if you observe: Fever of 101 or Higher, Shortness of breath, Dizziness, Fainting spells, Swelling in the ankles, Chest pain and Increased palpitations (irregular heartbeat) Follow Up Care Test Results: Test results from this visit will be discussed in further detail at your follow- up appointment, if applicable. Discharge Plan Admission Admit Date/Time: 09/08/21 17:02 Attending Provider: Kranthi Agudelo Primary Care Provider: Tor Law Chi Instructions Additional Instructions / Restrictions: Would also recommend follow-up with a neurologist, can discuss with your PCP about a referral Discharge Orders/Prescriptions Prescriptions: New mecobalamin (vitamin B12) 1,000 mcg tablet,disintegrating 1,000 mcg sublingual DAILY Qty: 30 0RF Rx Instructions: place tablet under tongue and allow to dissolve for at least30 secs before swallowing Continued (DME) Handicap Placard See Rx Instructions .Route .MEDSUPPLY Qty: 1 0RF Rx Instructions: expires 07/2025 hydroxyurea 500 mg capsule 1,000 mg PO DAILY acetaminophen 500 mg Tablet 1,000 mg PO BID Xarelto 20 mg tablet 20 mg PO DAILY Qty: 30 6RF Rx Instructions: must administer with evening meal metoprolol succinate 50 mg tablet extended release 24 hr 50 mg PO QHS Qty: 90 3RF Referrals / Follow Up: Tor Law Chi, MD [Primary Care Provider] - Within 1 Week Disposition Disposition (needs filled in before D/C Order can be placed): Home, Self Care
--- NOTE | 2021-09-09 13:31 | PCM.DC.SUM ---
Providers Date of Admission: 09/08/21 Primary Care Physician: Dr. Tor Law MD Reason For Visit: TIA Diagnosis Discharge Diagnosis (1) Episodic confusion: Status: Acute Code(s): R41.0 - Disorientation, unspecified (2) TIA (transient ischemic attack): Status: Acute Code(s): G45.9 - Transient cerebral ischemic attack, unspecified (3) Paresthesias in right hand: Status: Acute Code(s): R20.2 - Paresthesia of skin Plan 1. Confusion with possible TIA ? We will obtain an MRI ? She did have an echo in May of her shortness of breath which was unremarkable ? She is on Xarelto for history of blood clots ? She does endorse some softer stools with a white count of 16 so if this does progress to full-blown diarrhea then can obtain stool cultures ? SOC neurology consult is pending ? NIH of 0 ? Will allow permissive hypertension, systolics are at 203 currently she does also have labetalol and hydralazine as needed if necessary 2. History of blood clots/polycythemia vera ? Continue with her Xarelto and hydroxyurea 3. Hypertension ? Will allow permissive hypertension ? Can resume her home metoprolol DVT: Xarelto Medications at Discharge Home Medications rivaroxaban 20 mg tablet (Xarelto) 20 mg PO DAILY #30 tabs 04/16/19 Handicap Placard #1 ea 07/05/20 metoprolol succinate 50 mg tablet,extended release 24 hr 50 mg PO QHS blood pressure #90 tabs 09/06/20 hydroxyurea 500 mg capsule 1,000 mg PO DAILY 05/10/21 acetaminophen 500 mg tablet 1,000 mg PO BID back pain 09/08/21 mecobalamin (vitamin B12) 1,000 mcg disintegrating tablet,sublingual 1,000 mcg sublingual DAILY #30 tabs 09/09/21 Hospital Course Operations None Procedures None Summary of Care Provided Minutes Spent on Discharge: 40 Hospital Course: Per HPI: HANSEL NEWMAN, is a 76 F who presents to the hospital with confusion.? She has been having episodic confusion since Saturday, she describes it as feeling loopy.? She states that normally she talks a lot on her phone but for the last several days she has been having difficulty finding the letters on the keyboard and knowing where they are.? She also endorsed some episodic fingertip tingling and lip tingling.? She is outside of the tPA window because of this however in the ER they attempted to get a an SOC neurology consult however the connection with the computer has not been working.? UA was unremarkable did not show urine infection and the chest x-ray was unremarkable.? CT of the brain was normal.? The only major abnormality is a leukocytosis of 16 without an obvious source as well as a blood pressure with systolics at 203. Hospital Course: 1.? Confusion with possible TIA ?MRI of the brain was negative for stroke, and the MRAs of her head and neck were also unremarkable ? She did have an echo in May of her shortness of breath which was unremarkable ? She is on Xarelto for history of blood clots ?Leukocytosis has improved without any antibiotics and she no longer has any soft stools or diarrhea ? SOC neurology felt that she could likely be discharged today, a B12 was borderline low so this will be addressed with medications on discharge. Also recommend outpatient follow-up with neurologist as well as her PCP. TSH was also normal ? NIH of 0 ?Blood pressures are better this morning we will continue with her home blood pressure medication recommend outpatient follow-up with her PCP for further monitoring and medication adjustment ? Discussed with her the plan for discharge today she expressed understanding of the risk and benefits of going home and would like to go home today. 2.? History of blood clots/polycythemia vera ? Continue with her Xarelto and hydroxyurea 3.? Hypertension ? Will allow permissive hypertension ? Can resume her home metoprolol Physical Exam Narrative Const alert, oriented x3 and no apparent distress General Appearance: cooperative HEENT normocephalic and moist oral mucous membranes Eyes PERRL, EOMs intact bilaterally and conjunctivae normal Neck supple and no JVD Resp normal respiratory effort, no retractions, no use of accessory muscles and clear to auscultation bilaterally Auscultation: Negative for crackles, rales, rhonchi or wheezes Cardio regular rate, regular rhythm, S1 normal heart sound, S2 normal heart sound and no murmurs GI soft to palpation, non-tender and non-distended; Negative for hepatosplenomegaly Extremity no clubbing, cyanosis or edema Skin no rashes or lesions noted Neuro oriented x3, CN's II-XII intact bilaterally, moves all extremities, no focal motor deficits and no sensory deficits noted Psych affect normal Appearance: appropriate Weight / BMI Weight Weight: 187 lb 1.6 oz Body Mass Index (BMI) 30.7 ABG / Lab / Microbiology Data Result Diagrams: 09/09/21 05:35 09/09/21 05:35 Laboratory: Laboratory Results - last 24 hr 09/08/21 13:50: WBC 16.0 H, RBC 4.34, Hgb 12.5, Hct 42.9, MCV 98.8, MCH 28.8, MCHC 29.1 L, RDW Std Deviation 65.1 H, RDW Coeff of Iveth 18.0 H, Plt Count 640 H, MPV 11.1, Immature Gran % (Auto) 0.900, Neut % (Auto) 70.2 H, Lymph % (Auto) 16.3 L, [place] % (Auto) 8.2, Eos % (Auto) 3.8, Baso % (Auto) 0.6, Absolute Neuts (auto) 11.2 H, Absolute Lymphs (auto) 2.60, Nucleated RBC % 0.3, Anisocytosis 1+ 09/08/21 13:50: Sodium 138, Potassium 3.9, Chloride 105, Carbon Dioxide 25.0, Anion Gap 8, BUN 21 H, Creatinine 0.92, Estim Creat Clear Calc 45.35, Est GFR (MDRD) Af Amer 76, Est GFR (MDRD) Non-Af 62, BUN/Creatinine Ratio 22.7 H, Glucose 116 H, Calcium 9.2, Total Bilirubin 0.30, AST 20, ALT 22, Alkaline Phosphatase 100, Troponin I High Sens 6, Total Protein 7.9, Albumin 3.3, Globulin 4.6 H, Albumin/Globulin Ratio 0.7 L 09/08/21 13:50: Urine Color Yellow, Urine Clarity Clear, Urine pH 6.5, Ur Specific [place] 1.010, Urine Protein 15 H, Urine Glucose (UA) Normal, Urine Ketones Negative, Urine Occult Blood Negative, Urine Nitrite Negative, Urine Bilirubin Negative, Urine Urobilinogen Normal, Ur Leukocyte Esterase Negative, Urine RBC 0 SEEN, Urine WBC 0 SEEN, Ur Squamous Epith Cells 0 SEEN, Urine Bacteria 0 SEEN, Urine Mucus 0 SEEN 09/08/21 15:30: Vitamin B12 346 09/09/21 05:35: WBC 12.8 H, RBC 4.06 L, Hgb 11.7 L, Hct 40.0, MCV 98.5, MCH 28.8, MCHC 29.3 L, RDW Std Deviation 63.9 H, RDW Coeff of Iveth 17.9 H, Plt Count 586 H, MPV 11.1, Immature Gran % (Auto) 1.000 H, Neut % (Auto) 68.8, Lymph % (Auto) 14.3 L, [place] % (Auto) 9.4, Eos % (Auto) 5.9 H, Baso % (Auto) 0.6, Absolute Neuts (auto) 8.8 H, Absolute Lymphs (auto) 1.83, Nucleated RBC % 0.3 09/09/21 05:35: Sodium 138, Potassium 3.9, Chloride 105, Carbon Dioxide 27.0, Anion Gap 6, BUN 16, Creatinine 0.71, Estim Creat Clear Calc 41.72, Est GFR (MDRD) Af Amer 102, Est GFR (MDRD) Non-Af 84, BUN/Creatinine Ratio 22.5 H, Glucose 105, Calcium 9.0, Triglycerides 121, Cholesterol 184, LDL Cholesterol 120, VLDL Cholesterol 24, HDL Cholesterol 40 09/09/21 05:35: TSH 2.06 Radiography Diagnostic Testing: Radiology Impression Brain CT 09/08/21 13:51 IMPRESSION: Chronic involutional changes of the brain. Minimal mucosal thickening of the right sphenoid sinus. Electronically Signed: Jhon Painting MD at 14:33 EDT , Chest X-Ray 09/08/21 14:15 IMPRESSION: No acute abnormality is seen. Electronically Signed: Jhon Painting MD at 14:31 EDT , Brain MRI 09/08/21 18:23 IMPRESSION: Chronic involutional changes of the brain. Electronically Signed: Jack Gabriel MD at 20:38 EDT , Head MRA 09/09/21 09:58 IMPRESSION: No evidence for intracranial large vessel occlusion. Electronically Signed: Mike Arevalo MD at 12:41 EDT , Neck MRA 09/09/21 09:58 IMPRESSION: Limited examination due to patient motion and poor oral contrast bolus timing with venous contamination. No evidence for extracranial carotid or vertebral artery occlusion. No significant stenosis based on this examination. Electronically Signed: Mike Arevalo MD at 12:36 EDT , D/C Instructions Discharge Diet: Low fat / Low cholesterol Call your doctor if you observe: Fever of 101 or Higher, Shortness of breath, Dizziness, Fainting spells, Swelling in the ankles, Chest pain and Increased palpitations (irregular heartbeat) Meaningful Use Info Meaningful Use Diagnoses (Choose all that apply): None applicable Discharge Plan Admission Admit Date/Time: 09/08/21 17:02 Attending Provider: Kranthi Agudelo Primary Care Provider: Tor Law Chi Instructions Additional Instructions / Restrictions: Would also recommend follow-up with a neurologist, can discuss with your PCP about a referral Discharge Orders/Prescriptions Prescriptions: New mecobalamin (vitamin B12) 1,000 mcg tablet,disintegrating 1,000 mcg sublingual DAILY Qty: 30 0RF Rx Instructions: place tablet under tongue and allow to dissolve for at least30 secs before swallowing Continued (DME) Handicap Placard See Rx Instructions .Route .MEDSUPPLY Qty: 1 0RF Rx Instructions: expires 07/2025 hydroxyurea 500 mg capsule 1,000 mg PO DAILY acetaminophen 500 mg Tablet 1,000 mg PO BID Xarelto 20 mg tablet 20 mg PO DAILY Qty: 30 6RF Rx Instructions: must administer with evening meal metoprolol succinate 50 mg tablet extended release 24 hr 50 mg PO QHS Qty: 90 3RF Referrals / Follow Up: Tor Law Chi, MD [Primary Care Provider] - Within 1 Week Disposition Disposition (needs filled in before D/C Order can be placed): Home, Self Care Charges/Coding Visit Charges OBSV E&M: 71248 Observation care discharge
[2021-09-09 14:53] VITALS: BMI 30.7
== END 2021-09-09 13:15 | disposition home or self-care (01) ==
LOC: ED 17:00 → PCU 17:27
PROVIDERS: Admitting Provider Family Medicine; Emergency Provider Emergency Medicine; PCP Family Medicine Geriatric Medicine; Visit Provider Family Medicine
DX: G45.9 Transient cerebral ischemic attack, unspecified (principal); I27.21 Secondary pulmonary arterial hypertension; D45 Polycythemia vera; Z86.711 Personal history of pulmonary embolism; R20.2 Paresthesia of skin; R41.0 Disorientation, unspecified; I12.9 Hypertensive chronic kidney disease with stage 1 through stage 4 chronic kidney disease, or unspecified chronic kidney disease; E78.5 Hyperlipidemia, unspecified; Z79.01 Long term (current) use of anticoagulants; N18.9 Chronic kidney disease, unspecified; M19.90 Unspecified osteoarthritis, unspecified site; E66.9 Obesity, unspecified; Z68.31 Body mass index [BMI] 31.0-31.9, adult; Z79.899 Other long term (current) drug therapy
CPT/HCPCS: 36415; 70450; 70544; 70549; 70551; 71045; 80048; 80053; 80061; 81001; 82607; 84443; 84484; 85025; 92523; 92610; 93005; 97161; 97165; 99218; 99285; A9575; A4216; G0378

== ENCOUNTER 2022-01-22 11:21 | Outpatient (CLI) | payer MEDICARE, SELFPAY ==
[2022-01-22 12:04] LABS: Absolute Lymphocyte Count 1.33 X10^3/uL (0.83-4.51); Absolute Neutrophil Count 3.4 X10^3/uL (2.0-7.7); Basophil# 0.04 X10^3/uL; Basophil% 0.8 % (0-1); Eosinophil# 0.15 X10^3/uL; Eosinophils% 2.9 % (0-5); Hematocrit 38.3 % (37-47); Hemoglobin 12.1 g/dL (12.0-15.0); Lymphocyte # 1.33 X10^3/ul (0.83-4.51); Lymphocyte % 25.8 % (19-41); Mean Corp Hgb Conc 31.6 g/dL (32-36); Mean Corpuscular Hgb 37.7 pg (27.0-32.0); Mean Corpuscular Volume 119.3 fL (81-99); Mean Platelet Vol. 10.5 fl (6.2-12.0); Monocyte# 0.23 X10^3/uL; Monocyte% 4.5 % (0-10); NRBC Flagged by Analyzer 0.6 % (0-5); Neutrophil # 3.35 X10^3/uL (2.7-7.7); POSITIVE MORPHOLOGY YES; Platelet Count 350 K/mm3 (150-450); RBC Distribution Width CV 17.6 % (11.6-14.6); RBC Distribution Width SD 78.9 fl (35.1-43.9); Red Blood Count 3.21 M/mm3 (4.2-5.4); White Blood Count 5.2 K/mm3 (4.4-11.0)
[2022-01-22 12:11] LABS: Differential Indicated SCAN CRITERIA MET
[2022-01-22 12:31] LABS: Vitamin D,25 Hydroxy 20.9 ng/mL
[2022-01-22 12:38] LABS: ALB/GLOB Ratio 0.9 RATIO (0.9-2.4); AST(SGOT) 24 U/L (15-37); Alanine Aminotransfer ALT/SGPT 28 U/L (13-56); Albumin, Serum 3.5 g/dL (3.2-5.0); Alkaline Phosphatase 68 U/L (45-117); Anion Gap 7 (5-15); BUN 21 mg/dL (7-18); BUN/Creat Ratio 21.5 RATIO (10-20); Calcium,Total 8.8 mg/dL (8.5-10.1); Chloride 104 mmol/L (98-107); Creatinine, Serum 0.98 mg/dL (0.55-1.02); EST Glomerular Filtration Rate 59 mL/min (>60); Est Glom Filt Rate - Afr Amer 71 mL/min (>60); Globulin 3.9 g/dL (2.2-4.2); Glucose 101 mg/dL (74-106); Potassium 4.3 mmol/L (3.5-5.1); Protein, Total 7.4 g/dL (6.4-8.2); Sodium Level 138 mmol/L (136-145); Thyroid Stim Hormone (TSH) 1.41 uIU/mL (0.358-3.74)
[2022-01-22 13:16] LABS: Anisocytosis 2+; Differential Comment SCANNED; Macrocytosis 2+
== END 2022-01-22 23:59 | disposition home or self-care (01) ==
LOC: LAB 11:22
PROVIDERS: PCP Family Medicine Geriatric Medicine; Visit Provider Family Medicine Geriatric Medicine
DX: I10 Essential (primary) hypertension (principal); E55.9 Vitamin D deficiency, unspecified
CPT/HCPCS: 36415; 80053; 82306; 84443; 85025

== ENCOUNTER → 2022-05-31 | Outpatient (CLI) | payer MEDICARE, BC, SELFPAY ==
--- NOTE | 2022-05-31 12:06 | BI_ITS ---
MAMMOGRAPHY - BILATERAL SCREENING REASON FOR EXAM: Female, 76 years old. Routine annual screening examination. PERTINENT HISTORY: Mother with breast cancer. TECHNIQUE: Digital bilateral breast khurram (3D mammographic acquisition) in the CC and MLO projections. 2-D mediolateral oblique (MLO) and craniocaudad (CC) views of both breasts were obtained. CAD: Full Field Digital Mammography with Computer Added Detection was performed. COMPARISON: Comparison is made with prior study dated May 30, 2021 and March 21, 2020. FINDINGS: Breast Composition: There are scattered areas of fibroglandular density. There are no dominant masses or suspicious calcifications. Stable asymmetry of breast tissue with more breast tissue is seen in the upper-outer quadrant of the right breast as compared to the left side. Stable 5 mm well-defined nodule in the axilla region of the left breast suggestive of a small lymph node. Stable appearance of the small lymph nodes in the right axilla. No other significant abnormalities are identified. There has been no significant change since the prior study. BI/SCRN MAMM (CAD)W/KHURRAM BILAT IMPRESSION: Stable bilateral screening mammogram. Yearly follow-up mammogram recommended. (A) ASSESSMENT CATEGORY: BIRADS Category 2: Benign. A letter regarding these results will be sent to the patient by the facility within 30 days. Approximately 10% of breast cancers are not detected by mammography. A normal mammogram should not delay biopsy of a clinically suspicious abnormality. [id number] Electronically Signed: Jhon Painting MD at 13:32 EDT ,
== END | disposition home or self-care (01) ==
LOC: OPBI 12:05
PROVIDERS: PCP Family Medicine Geriatric Medicine; Visit Provider Internal Medicine Hematology & Oncology
DX: Z12.31 Encounter for screening mammogram for malignant neoplasm of breast (principal); Z80.3 Family history of malignant neoplasm of breast
CPT/HCPCS: 77063; 77067

== ENCOUNTER → 2022-07-19 | Outpatient (CLI) | payer MEDICARE, BC, SELFPAY | END | disposition home or self-care (01) | LOC: SL 20:04 | PROVIDERS: PCP Family Medicine Geriatric Medicine; Visit Provider Psychiatry & Neurology Neurology | DX: G47.33 Obstructive sleep apnea (adult) (pediatric) (principal) | CPT/HCPCS: 95810 ==

== ENCOUNTER → 2022-07-25 | Outpatient (CLI) | payer MEDICARE, BC, SELFPAY ==
[2022-07-25 13:12] LABS: Hematocrit 40.4 % (37-47); Hemoglobin 12.5 g/dL (12.0-15.0); Mean Corp Hgb Conc 30.9 g/dL (32-36); Mean Corpuscular Hgb 35.9 pg (27.0-32.0); Mean Corpuscular Volume 116.1 fL (81-99); Mean Platelet Vol. 11.3 fl (6.2-12.0); POSITIVE MORPHOLOGY YES; Platelet Count 402 K/mm3 (150-450); RBC Distribution Width SD 75.9 fl (35.1-43.9); Red Blood Count 3.48 M/mm3 (4.2-5.4); White Blood Count 7.4 K/mm3 (4.4-11.0)
[2022-07-25 13:16] LABS: Scan Indicated on CBC? Y/N YES- FLAGS NOTED
[2022-07-25 13:28] LABS: Vitamin D,25 Hydroxy 24.4 ng/mL
[2022-07-25 13:48] LABS: ALB/GLOB Ratio 0.9 RATIO (0.9-2.4); AST(SGOT) 18 U/L (15-37); Alanine Aminotransfer ALT/SGPT 19 U/L (13-56); Albumin, Serum 3.5 g/dL (3.2-5.0); Alkaline Phosphatase 80 U/L (45-117); Anion Gap 9 (5-15); BUN 21 mg/dL (7-18); BUN/Creat Ratio 25.2 RATIO (10-20); Calcium,Total 9.1 mg/dL (8.5-10.1); Chloride 107 mmol/L (98-107); Creatinine, Serum 0.83 mg/dL (0.55-1.02); EST Glomerular Filtration Rate 70 mL/min (>60); Est Glom Filt Rate - Afr Amer 85 mL/min (>60); Globulin 3.9 g/dL (2.2-4.2); Glucose 141 mg/dL (74-106); Potassium 4.8 mmol/L (3.5-5.1); Protein, Total 7.4 g/dL (6.4-8.2); Sodium Level 140 mmol/L (136-145); Thyroid Stim Hormone (TSH) 1.52 uIU/mL (0.358-3.74)
== END | disposition home or self-care (01) ==
LOC: POLAB3 10:48
PROVIDERS: Psychiatry & Neurology Neurology; PCP Family Medicine Geriatric Medicine; Visit Provider Family Medicine Geriatric Medicine
DX: I10 Essential (primary) hypertension (principal); E55.9 Vitamin D deficiency, unspecified
CPT/HCPCS: 36415; 80053; 82306; 84443; 85027

== ENCOUNTER → 2022-08-13 | Outpatient (CLI) | payer MEDICARE, BC, SELFPAY ==
--- NOTE | 2022-08-13 10:10 | MRI_ITS ---
STUDY: MRI BRAIN WITH AND WITHOUT CONTRAST (ATTENTION INTERNAL AUDITORY CANALS - I.A.C.''s) REASON FOR EXAM: Female, 77 years old. Vertigo; mild cognitive impairment -- With attention to IACs. TECHNIQUE: Standardized multiplanar fat and water weighted pulse sequences were obtained. IV 18ML CLARISCAN was administered for the contrast portion of the examination. COMPARISON: None. FINDINGS: Normal bilateral temporal bones. Normal bilateral internal auditory canals. There is no demonstrated intracanalicular or cisternal vestibular schwannoma (acoustic neuroma). There is no enhancement of the bilateral VIIth or VIIIth cranial nerves. Normal bilateral cochlea, vestibules and semicircular canals. Normal size of the ventricles and extra-axial spaces for the patient''s age. Small T2 FLAIR hyperintensity foci in the white matter of the cerebral hemispheres are chronic white matter ischemic changes. No midline shift and no mass effects. Normal bilateral basal ganglia. Normal thalami. Normal flow voids within the major intracranial circulation suggesting patency by spin echo criteria. Normal venous enhancement. There is no enhancing intra-axial or extra-axial abnormality. There is no extra-axial fluid accumulation. Normal sella turcica, pituitary gland, infundibular stalk, optic chiasm and hypothalamus. Normal tectal plate and pineal gland. Normal midbrain, mariely and medulla. Normal cerebellum. Normal basal cisterns. No demonstrated orbital abnormality, within the constraints of a routine brain study. Normal visualized paranasal sinuses. Normal calvarium and skull base. Normal visualized soft tissue structures. Normal visualized upper cervical spine. MRI/Brain W/WO Contrast IMPRESSION: Small chronic white matter ischemic changes in both cerebral hemispheres otherwise negative unenhanced and enhanced MRI of the bilateral internal auditory canals (I.A.C''s). Electronically Signed: Edmundo Simmons MD at 15:20 EDT ,
--- NOTE | 2022-08-13 10:11 | CDU_ITS ---
Reason For Study: CEREBROVASCULAR DISEASE Rt. Velocities/BP Lt. Velocities/BP Prox CCA 77.1/11.0 cm/sec. Prox CCA 147.5/23.1 cm/sec. Mid CCA 83.7/10.0 cm/sec. Mid CCA 96.6/18.1 cm/sec. Dist CCA 91.9/10.6 cm/sec. Dist CCA 82.0/14.4 cm/sec. Prox ICA 203.3/38.5 cm/sec. Prox ICA 124.0/21.7 cm/sec. Mid ICA 171.0/26.1 cm/sec. Mid ICA 103.9/29.0 cm/sec. Dist ICA 168.8/28.3 cm/sec. Dist ICA 131.3/30.9 cm/sec. Rt. ICA/CCA = 203.3/83.7=2.4. Lt. ICA/CCA = 131.3/96.6=1.4. Prox ECA 77.6/0.0 cm/sec. Prox ECA 93.0/3.5 cm/sec. Rt. Vert. 49.0/8.4 cm/sec. Lt. Vert. 47.2/9.8 cm/sec. Right Extracranial There is intimal thickening but no significant atherosclerotic plaque noted in the right common carotid artery. There is heterogeneous, irregular atherosclerotic plaque noted in the right internal carotid artery. There is heterogeneous, smooth atherosclerotic plaque noted in the right external carotid artery. Antegrade flow is noted in the right vertebral artery. There is heterogeneous, irregular atherosclerotic plaque noted in the right bulb. Left Extracranial There is intimal thickening but no significant atherosclerotic plaque noted in the left common carotid artery. There is heterogeneous, irregular atherosclerotic plaque noted in the left internal carotid artery. There is heterogeneous, irregular atherosclerotic plaque noted in the left external carotid artery. Antegrade flow is noted in the left vertebral artery. There is heterogeneous, irregular atherosclerotic plaque noted in the left bulb. Procedure Carotid Duplex [id number]. This is a Carotid Duplex examination using B-mode, color flow and specral Doppler. Exam performed in department. VL/Carotid Duplex Ultrasound Interpretation Summary Moderate (50-69%) stenosis right extracranial internal carotid. Moderate (50-69%) stenosis left extracranial internal carotid. Patent and antegrade vertebrals bilaterally. Ordering Physician: Navjot Sosa Referring Physician: Tor Law Chi Performed By: Jeane Harris, KAM, RVT
== END | disposition home or self-care (01) ==
LOC: MRI 10:02
PROVIDERS: PCP Family Medicine Geriatric Medicine; Referring Provider Psychiatry & Neurology Neurology; Visit Provider Psychiatry & Neurology Neurology
DX: Z86.711 Personal history of pulmonary embolism (principal); I67.9 Cerebrovascular disease, unspecified; H81.90 Unspecified disorder of vestibular function, unspecified ear
CPT/HCPCS: 70553; 93880; A9575

== ENCOUNTER → 2023-01-23 | Outpatient (CLI) | payer MEDICARE, BC, SELFPAY ==
[2023-01-23 11:20] LABS: Absolute Lymphocyte Count 1.83 X10^3/uL (0.83-4.51); Basophil# 0.04 X10^3/uL; Basophil% 0.8 % (0-1); Eosinophil# 0.27 X10^3/uL; Eosinophils% 5.1 % (0-5); Hematocrit 38.9 % (37-47); Hemoglobin 12.4 g/dL (12.0-15.0); Lymphocyte # 1.83 X10^3/ul (0.83-4.51); Lymphocyte % 34.6 % (19-41); Mean Corp Hgb Conc 31.9 g/dL (32-36); Mean Corpuscular Hgb 35.2 pg (27.0-32.0); Mean Corpuscular Volume 110.5 fL (81-99); Mean Platelet Vol. 10.9 fl (6.2-12.0); Monocyte# 0.13 X10^3/uL; Monocyte% 2.5 % (0-10); NRBC Flagged by Analyzer 0.4 % (0-5); Neutrophil # 3.01 X10^3/uL (2.7-7.7); Neutrophil % 56.8 % (47-70); POSITIVE MORPHOLOGY YES; Platelet Count 360 K/mm3 (150-450); RBC Distribution Width CV 18.6 % (11.6-14.6); RBC Distribution Width SD 75.7 fl (35.1-43.9); Red Blood Count 3.52 M/mm3 (4.2-5.4); White Blood Count 5.3 K/mm3 (4.4-11.0)
[2023-01-23 11:33] LABS: Differential Indicated SCAN CRITERIA MET
[2023-01-23 12:02] LABS: Anisocytosis 1+
[2023-01-23 12:12] LABS: Vitamin D,25 Hydroxy 28.7 ng/mL
[2023-01-23 12:18] LABS: ALB/GLOB Ratio 0.8 RATIO (0.9-2.4); AST(SGOT) 19 U/L (15-37); Alanine Aminotransfer ALT/SGPT 26 U/L (13-56); Albumin, Serum 3.6 g/dL (3.2-5.0); Alkaline Phosphatase 82 U/L (45-117); Anion Gap 7 (5-15); BUN 23 mg/dL (7-18); BUN/Creat Ratio 21.3 RATIO (10-20); Chloride 109 mmol/L (98-107); Creatinine, Serum 1.08 mg/dL (0.55-1.02); EST Glomerular Filtration Rate 52 mL/min (>60); Est Glom Filt Rate - Afr Amer 63 mL/min (>60); Globulin 4.4 g/dL (2.2-4.2); Glucose 143 mg/dL (74-106); Potassium 4.5 mmol/L (3.5-5.1); Sodium Level 138 mmol/L (136-145)
[2023-01-28 10:24] LABS: Hemoglobin A1c 5.3 % (3.8-5.6)
== END | disposition home or self-care (01) ==
LOC: POLAB3 10:45
PROVIDERS: PCP Family Medicine Geriatric Medicine; Visit Provider Family Medicine Geriatric Medicine
DX: E11.65 Type 2 diabetes mellitus with hyperglycemia (principal); I10 Essential (primary) hypertension; E55.9 Vitamin D deficiency, unspecified
CPT/HCPCS: 36415; 80053; 82306; 83036; 84443; 85025

== ENCOUNTER → 2023-06-19 | Outpatient (CLI) | payer MEDICARE, BC, SELFPAY ==
--- NOTE | 2023-06-19 13:01 | BI_ITS ---
MAMMOGRAPHY - BILATERAL SCREENING REASON FOR EXAM: Female, 77 years old. Routine annual screening examination. PERTINENT HISTORY: Mother with breast cancer. TECHNIQUE: Digital bilateral breast khurram (3D mammographic acquisition) in the CC and MLO projections. 2-D mediolateral oblique (MLO) and craniocaudad (CC) views of both breasts were obtained. CAD: Full Field Digital Mammography with Computer Added Detection was performed. COMPARISON: Comparison is made with prior study dated May 31, 2022 and May 30, 2001. FINDINGS: Breast Composition: There are scattered areas of fibroglandular density. There are no dominant masses or suspicious calcifications. Stable asymmetric breast tissue where more breast tissue is seen in the upper outer quadrant of the right breast as compared to the left side. Stable 5 mm benign-appearing nodule in the axillary region of the left breast suggestive of a small lymph node. No other significant abnormalities are identified. There has been no significant change since the prior study. BI/SCRN MAMM (CAD)W/KHURRAM BILAT IMPRESSION: Stable bilateral screening mammogram. Yearly follow-up mammogram recommended. (A) ASSESSMENT CATEGORY: BIRADS Category 2: Benign. A letter regarding these results will be sent to the patient by the facility within 30 days. Approximately 10% of breast cancers are not detected by mammography. A normal mammogram should not delay biopsy of a clinically suspicious abnormality. [id number] Electronically Signed: Jhon Painting MD at 14:13 EDT ,
== END | disposition home or self-care (01) ==
LOC: OPBI 13:01
PROVIDERS: PCP Family Medicine Geriatric Medicine; Referring Provider Internal Medicine Hematology & Oncology; Visit Provider Internal Medicine Hematology & Oncology
DX: Z12.31 Encounter for screening mammogram for malignant neoplasm of breast (principal); Z80.3 Family history of malignant neoplasm of breast
CPT/HCPCS: 77063; 77067

== ENCOUNTER → 2023-07-31 | Outpatient (CLI) | payer MEDICARE, BC, SELFPAY ==
[2023-07-31 12:47] LABS: Absolute Lymphocyte Count 1.69 X10^3/uL (0.83-4.51); Absolute Neutrophil Count 4.4 X10^3/uL (2.0-7.7); Basophil# 0.06 X10^3/uL; Basophil% 0.9 % (0-1); Eosinophils% 5.7 % (0-5); Hematocrit 40.4 % (37-47); Hemoglobin 12.3 g/dL (12.0-15.0); Lymphocyte # 1.69 X10^3/ul (0.83-4.51); Lymphocyte % 24.1 % (19-41); Mean Corp Hgb Conc 30.4 g/dL (32-36); Mean Corpuscular Hgb 33.5 pg (27.0-32.0); Mean Corpuscular Volume 110.1 fL (81-99); Mean Platelet Vol. 11.5 fl (6.2-12.0); Monocyte% 5.7 % (0-10); NRBC Flagged by Analyzer 0.9 % (0-5); Neutrophil # 4.42 X10^3/uL (2.7-7.7); POSITIVE MORPHOLOGY YES; Platelet Count 380 K/mm3 (150-450); RBC Distribution Width CV 18.6 % (11.6-14.6); RBC Distribution Width SD 74.5 fl (35.1-43.9); Red Blood Count 3.67 M/mm3 (4.2-5.4)
[2023-07-31 12:49] LABS: Differential Indicated SCAN CRITERIA MET
[2023-07-31 12:56] LABS: ALB/GLOB Ratio 0.8 RATIO (0.9-2.4); AST(SGOT) 27 U/L (15-37); Alanine Aminotransfer ALT/SGPT 27 U/L (13-56); Albumin, Serum 3.9 g/dL (3.2-5.0); Alkaline Phosphatase 86 U/L (45-117); Anion Gap 7 (5-15); BUN 23 mg/dL (7-18); BUN/Creat Ratio 20.4 RATIO (10-20); Calcium,Total 9.4 mg/dL (8.5-10.1); Chloride 103 mmol/L (98-107); Cholesterol 250 mg/dL (200); Creatinine, Serum 1.13 mg/dL (0.55-1.02); EST Glomerular Filtration Rate 49 mL/min (>60); Est Glom Filt Rate - Afr Amer 60 mL/min (>60); Globulin 4.6 g/dL (2.2-4.2); Glucose 92 mg/dL (74-106); High Density Lipoprotein 50 mg/dL; Potassium 4.5 mmol/L (3.5-5.1); Protein, Total 8.5 g/dL (6.4-8.2); Sodium Level 134 mmol/L (136-145); Thyroid Stim Hormone (TSH) 1.93 uIU/mL (0.358-3.74); Triglycerides 234 mg/dL; Very Low Density Lipoprotein 47 mg/dL (5-40)
[2023-07-31 16:01] LABS: Anisocytosis 1+; Differential Comment SCANNED
[2023-07-31 17:21] LABS: Vitamin D,25 Hydroxy 11.6 ng/mL
== END | disposition home or self-care (01) ==
LOC: LAB 11:48
PROVIDERS: PCP Family Medicine Geriatric Medicine; Visit Provider Family Medicine Geriatric Medicine
DX: E11.65 Type 2 diabetes mellitus with hyperglycemia (principal); I10 Essential (primary) hypertension; E55.9 Vitamin D deficiency, unspecified; E78.5 Hyperlipidemia, unspecified
CPT/HCPCS: 36415; 80053; 80061; 82306; 84443; 85025

== ENCOUNTER → 2024-02-05 | Outpatient (CLI) | payer MEDICARE, BC, SELFPAY ==
[2024-02-05 11:37] LABS: Absolute Lymphocyte Count 2.55 X10^3/uL (0.83-4.51); Absolute Neutrophil Count 8.2 X10^3/uL (2.0-7.7); Basophil# 0.08 X10^3/uL; Basophil% 0.7 % (0-1); Eosinophils% 4.9 % (0-5); Hematocrit 38.3 % (37-47); Hemoglobin 11.1 g/dL (12.0-15.0); Lymphocyte # 2.55 X10^3/ul (0.83-4.51); Mean Corpuscular Hgb 30.2 pg (27.0-32.0); Mean Corpuscular Volume 104.4 fL (81-99); Mean Platelet Vol. 11.1 fl (6.2-12.0); Monocyte# 0.48 X10^3/uL; Monocyte% 3.9 % (0-10); NRBC Flagged by Analyzer 0.5 % (0-5); Neutrophil # 8.24 X10^3/uL (2.7-7.7); Neutrophil % 67.7 % (47-70); POSITIVE MORPHOLOGY YES; Platelet Count 409 K/mm3 (150-450); RBC Distribution Width CV 21.8 % (11.6-14.6); Red Blood Count 3.67 M/mm3 (4.2-5.4); White Blood Count 12.2 K/mm3 (4.4-11.0)
[2024-02-05 11:45] LABS: Differential Indicated SCAN CRITERIA MET
[2024-02-05 12:06] LABS: Anisocytosis 2+
[2024-02-05 12:10] LABS: ALB/GLOB Ratio 0.8 RATIO (0.9-2.4); AST(SGOT) 18 U/L (15-37); Alanine Aminotransfer ALT/SGPT 29 U/L (13-56); Albumin, Serum 3.6 g/dL (3.2-5.0); Alkaline Phosphatase 101 U/L (45-117); Anion Gap 8 (5-15); BUN 24 mg/dL (7-18); BUN/Creat Ratio 25.6 RATIO (10-20); Calcium,Total 9.3 mg/dL (8.5-10.1); Chloride 106 mmol/L (98-107); Creatinine, Serum 0.94 mg/dL (0.55-1.02); EST Glomerular Filtration Rate 61 mL/min (>60); Est Glom Filt Rate - Afr Amer 74 mL/min (>60); Globulin 4.6 g/dL (2.2-4.2); Glucose 98 mg/dL (74-106); Potassium 3.8 mmol/L (3.5-5.1); Protein, Total 8.2 g/dL (6.4-8.2); Sodium Level 139 mmol/L (136-145)
[2024-02-05 13:03] LABS: Vitamin D,25 Hydroxy 41.2 ng/mL
== END | disposition home or self-care (01) ==
PROVIDERS: PCP Family Medicine Geriatric Medicine; Visit Provider Family Medicine Geriatric Medicine
DX: E11.65 Type 2 diabetes mellitus with hyperglycemia (principal); I10 Essential (primary) hypertension; E55.9 Vitamin D deficiency, unspecified
CPT/HCPCS: 36415; 80053; 82306; 84443; 85025

== ENCOUNTER 2024-05-28 20:36 | Inpatient (IN) | payer MEDICARE, BC, SELFPAY ==
[2024-05-28] VITALS (12 sets, daily range): BP systolic 172–202; BP diastolic 67–81; PULSE 79–90; RESP 13–25; TEMP 35.7; O2SAT 86–98; BMI 30.2
--- NOTE | 2024-05-28 21:23 | CT_ITS ---
PROCEDURE: ABDOMEN/PELVIS W IV CONT ONLY 05/29/2024 REASON FOR EXAM: UPPER ABD PAIN TECHNIQUE: Abdomen and pelvis CT with intravenous contrast. Coronal and Sagittal reconstruction series were provided. CONTRAST: 92 cc Isovue 370 One or more dose reduction techniques were used (e.g., Automated exposure control, adjustment of the mA and/or kV according to patient size, use of iterative reconstruction technique. RADIATION DOSE SUMMARY: CTDlvol: 9.31 mGy DLP: 893.18 mGycm COMPARISON: None available FINDINGS: Patient was administered IV contrast as above however the images do not show appreciable intravenous contrast present. Patient reportedly did not complain of any pain at the injection site although can not exclude extravasation. A 2nd set of images performed and still no appreciable contrast identified. Bibasilar dependent atelectasis. Appearance of right coronary calcification noted. The liver, gallbladder, adrenal glands, kidneys, pancreas and spleen appear within limits. No bowel dilation or free air. Suggestion of mild diffuse pericolonic stranding along the sigmoid colon, possible colitis. Diverticulosis is present however no focal inflamed appearing diverticulum seen in favor less likely diverticulitis although not excluded. Liquid intraluminal material within the lower sigmoid and rectum suggests diarrhea. The appendix is not identified, no secondary signs. A couple of intraluminal appearing fat density lesions within the ascending colon for example axial 77, 86 and 105 possible lipomas. [place] artifact from right hip replacement. The bladder appears within limits as visualized. The left ovary and uterus appear within limits. 2.9 cm cystic focus right ovary. No free fluid seen. Aortoiliac atherosclerotic calcifications without aneurysm. No adenopathy identified. Multilevel lumbar spondylosis/discogenic change with mild leftward curvature. CT/Abdomen/Pelvis W IV Cont ONLY IMPRESSION: Patient was administered IV contrast as above however the images do not show ap preciable intravenous contrast present. Patient reportedly did not complain of any pain at the injection site although can not exclude extravasation. A 2nd set of images performed and still no appreciable contrast identified. Discussed with Dr. Jose Juan mcnair at 1:15 a.m. 05/29/2024 Suggestion of mild diffuse pericolonic stranding along the sigmoid colon, possi ble colitis. Diverticulosis is present however no focal inflamed appearing diverticulum seen in favor less likely diverticulitis although not excluded. Liquid intraluminal material within the lower sigmoid and rectum suggests diarr hea. 2.9 cm cystic focus right ovary. May follow-up with nonemergent pelvic ultraso und. Reading Location: [id number]
--- NOTE | 2024-05-28 21:24 | ED.VIS.GI ---
HPI HPI - GI History of Present Illness Chief Complaint: Nausea/Vomiting/Diarrhea Informant: patient Abdominal Pain/Flank Pain Onset: Today and Hours Context: Sudden Onset Quality: Aching Location: Epigastric Current Severity: Mild Maximum Severity: Moderate Worsened by: Nothing Relieved by: Nothing Nausea/Vomiting/Emesis GI Symptom: Positive for Nausea and Vomiting Severity: Mild Diarrhea/Melena/Hematochezia GI Symptom: Positive for Diarrhea; Negative for Melena or Hematochezia Onset: Today Stool Quality: Positive for Loose Associated Symptoms Associated Symptoms: Negative for Dysuria, Frequency, Hematuria or Urgency Narrative Narrative: 78-year-old female history of TIA on Xarelto for polycythemia. Prior appendectomy. No other abdominal surgeries. Tonight banality with friends. Around 6 PM she started having epigastric abdominal pain with associated nausea, vomiting and diarrhea. No hematemesis. No melena. For that she felt fine. No dysuria. Was feeling well earlier today. Prior similar symptoms: Yes Recent Illness/Hospitalization: No PFSH PFS Medical History Anticoagulant long-term use TIA (transient ischemic attack) Paresthesias in right hand Episodic confusion Chronic kidney disease (CKD) History of pulmonary embolus (PE) (12/2018) Lung nodule Anemia Hepatic steatosis Osteoarthritis Essential (primary) hypertension Secondary pulmonary arterial hypertension High blood hemoglobin A2 Right ventricular diastolic dysfunction Pulmonary embolism, bilateral (12/2018) Hypoxemia HLD (hyperlipidemia) Juvenile rheumatic fever Hypercoagulable state Obesity (BMI 30-39.9) Elevated troponin Home Medications ?Medication ?Instructions ?Recorded ?Last Taken ?Type rivaroxaban 20 mg tablet (Xarelto) 20 mg PO DAILY #30 tabs 04/16/19 09/07/21 Rx Handicap Placard #1 ea 07/05/20 Unknown Rx acetaminophen 500 mg tablet 1,000 mg PO BID back pain 09/08/21 09/08/21 History mecobalamin (vitamin B12) 1,000 1,000 mcg sublingual DAILY #30 tabs 09/09/21 Unknown Rx mcg disintegrating tablet,sublingual meclizine 25 mg tablet 25 mg PO BID PRN dizziness #60 tabs 11/20/22 Unknown Rx cholecalciferol (vitamin D3) 25 25 mcg PO QDAY 09/06/23 Unknown History mcg (1,000 unit) capsule (Vitamin D3) amlodipine 5 mg tablet 5 mg PO DAILY #30 tabs 12/30/23 Unknown Rx lisinopril 5 mg tablet 5 mg PO QDAY #90 tabs 02/21/24 Unknown Rx hydroxyurea 500 mg capsule 1,000 mg (2 x 500 mg) PO DAILY 90 04/08/24 Unknown Rx days #120 caps Allergy/AdvReac Type Severity Reaction Status Date / Time No Known Allergies Allergy Verified 05/19/24 15:32 Family History Mother Arthritis Son DVT (deep venous thrombosis) Daughter DVT (deep venous thrombosis) Surgical History History of bilateral knee replacement History of right hip replacement History of cataract surgery S/P tendon repair History of right knee joint replacement History of left knee replacement History of right hip replacement History of cataract extraction History of appendectomy Social History household members: children housing: house Smoking Status: Never smoker second hand exposure: Yes alcohol intake: current alcohol intake frequency: holidays/special occasions only substance use type: does not use caffeine: Yes Type: coffee Number of servings: 1 what type of physical activity do you participate in: none seatbelt use: always additional social history: Lives with daughter and son-in-law ROS ROS ED ROS Narrative Epigastric abdominal pain with nausea, vomiting and diarrhea. Constitutional Constitutional ED: Denies chills or fever(s) ENT ENT ED: Denies ear pain Cardiovascular Cardiovascular: Denies chest pain or palpitations Respiratory/Chest Respiratory/Chest: Denies cough or dyspnea Gastrointestinal Gastrointestinal: Reports abdominal pain, diarrhea, nausea and vomiting; Denies constipation or melena Genitourinary Genitourinary ED: Denies dysuria or hematuria Musculoskeletal Musculoskeletal: Reports back pain; Denies arthralgias Integumentary Denies abscess or Abrasions Neurologic Neurologic: Denies headache(s) Psychiatric Psychiatric: Denies anxiety Endocrine Endocrinology: Denies polydipsia Hematologic/Lymphatic Hematologic/Lymphatic: Denies easy bleeding or easy bruising Allergic/Immunologic Allergic/Immunologic ED: Denies mouth swelling, tongue swelling or urticaria EXAM Physical Exam Narrative Exam Narrative: 78-year-old female vital signs are stable afebrile. She does not look septic or toxic. Daughter I spoke to her in the hallway prior to entering the room. H EENT exam pupils round reactive light. Moist mucous membranes. Neck nontender no JVD. Lungs clear to auscultation bilaterally. Heart regular rhythm rate about 90 no murmur. Chest wall ribs nontender. Abdomen soft nondistended normal bowel sounds without peritoneal signs. Mild epigastric tenderness. No rebound, guarding or rigidity. No Roque sign. Right lower quadrant is nontender. No hernia or mass. No pulsatile mass. No distention or obstruction. Positive bowel sounds. Moving all 4 extremities. Calves nontender without edema. Neurologically awake alert no focal motor deficits. Const Vital Signs: 05/28/24 20:37 05/28/24 21:51 05/28/24 22:00 Temperature 96.2 F L Temperature Source Temporal Pulse Rate 90 86 85 Respiratory Rate 16 23 H 20 H Blood Pressure 172/75 H 190/81 H Blood Pressure Mean 107 113 Pulse Ox 98 97 Oxygen Delivery Method Room Air Oxygen Flow Rate (L/min) 05/28/24 22:15 05/28/24 22:30 05/28/24 22:38 Temperature Temperature Source Pulse Rate 84 81 Respiratory Rate 25 H 15 Blood Pressure Blood Pressure Mean Pulse Ox 98 89 86 Oxygen Delivery Method Room Air Oxygen Flow Rate (L/min) 05/28/24 22:39 05/28/24 22:45 05/28/24 23:00 Temperature Temperature Source Pulse Rate 79 88 Respiratory Rate 15 15 Blood Pressure 190/70 H 198/74 H Blood Pressure Mean 103 107 Pulse Ox 95 96 97 Oxygen Delivery Method Nasal Cannula Oxygen Flow Rate (L/min) 2 05/28/24 23:15 05/28/24 23:30 05/28/24 23:45 Temperature Temperature Source Pulse Rate 86 88 87 Respiratory Rate 15 13 14 Blood Pressure 202/73 H 197/73 H 184/67 H Blood Pressure Mean 108 108 100 Pulse Ox 97 96 96 Oxygen Delivery Method Oxygen Flow Rate (L/min) 05/29/24 00:09 05/29/24 00:15 05/29/24 00:30 Temperature Temperature Source Pulse Rate 89 96 93 Respiratory Rate 16 17 16 Blood Pressure Blood Pressure Mean Pulse Ox 99 Oxygen Delivery Method Oxygen Flow Rate (L/min) 05/29/24 00:42 05/29/24 00:45 Temperature Temperature Source Pulse Rate 91 93 Respiratory Rate 25 H 28 H Blood Pressure 193/63 H 203/73 H Blood Pressure Mean 101 111 Pulse Ox Oxygen Delivery Method Oxygen Flow Rate (L/min) Positive well nourished and well developed; Negative for cachectic, contractures or unkempt General Appearance ED: well developed and NAD; Negative for unkempt, cachectic, contractures or pallor Nutritional Appearance: Negative for cachectic HEENT Reports moist mucous membranes normocephalic and atraumatic; Negative for trauma or tenderness Eyes PERRL and EOMs intact bilaterally General Eye ED: Negative for pale conjunctiva or scleral icterus Neck no lymphadenopathy, supple and no JVD General: Negative for tenderness Carotids: Negative for other Resp normal respiratory effort and clear to auscultation bilaterally Effort and Inspection: Negative for respiratory distress Auscultation: Negative for rales, rhonchi or wheezes Cardio regular rate, regular rhythm, S1 normal heart sound, S2 normal heart sound and no murmurs GI non-distended and no masses; Negative for non-tender GI Narrative: Epigastric tenderness. No pulsatile mass. No rebound or guarding. No rigidity. Inspection: Negative for abdominal distention Auscultation: normoactive bowel sounds Palpation: soft and tender; Negative for guarding, rigid, hepatomegaly, splenomegaly, hernia, mass, pulsatile mass or rebound tenderness present Back/Spine no CVA tenderness General Back: Negative for CVA tenderness Cervical Spine: Negative for cervical spine tenderness Thoracic Spine / Upper Back: Negative for thoracic spinal tenderness Lumbar Spine / Lower Back: Negative for lumbar spinal tenderness Extremity full ROM General Extremety ED: Negative for edema, tenderness or other findings General Extremity: Negative for edema or other findings Neuro CN's II-XII intact bilaterally and moves all extremities Sensorium / Orientation: alert, oriented to person, oriented to place and oriented to time; Negative for orientation impaired, confused, lethargic or stuporous Motor Exam: strength 5/5 throughout Psych mental status grossly normal and thought process normal Appearance: Negative for unkempt Attitude: No agitated Mood & Affect: Negative for depressed, anxious or tearful Skin no wounds General Skin Exam: Negative for jaundice or pallor Lesions: no lesions Rashes: no rashes Trauma: Negative for abrasion Nails: Negative for discolored MDM MDM MDM Narrative Medical decision making narrative: 78-year-old female abdominal pain with nausea, vomiting diarrhea suspect viral gastroenteritis rule out pancreatitis or gallbladder disease versus food poisoning versus other. CAT scan labs being obtained. IV fluids, IV Zofran and morphine IV. Repeat exam patient was feeling better with the morphine, Zofran IV fluids but she needed a second dose of morphine and IV fluids. Awaiting the CAT scan results it has been done I have reviewed waiting the official read. Chemistry panel is still pending also. Patient to be checked out to the overnight physician and he knows to check the CT and chemistry panel. Given that she is 78 years old has a 20,000 white count there is a significant chance she will need to be admitted overnight. History & Record Review Discussion w/independent historian: Patient Additional record(s) reviewed:: Prior inpatient record, Prior outpatient record, Prior ED visit and Prior labs Lab Data Attestation: I reviewed the patient's lab results. Lab results narrative: CBC shows a white count of 20,000. H&H 11.4 and 37. Platelets 436. Lipase normal at 25. Labs: Laboratory Results - last 24 hr 05/28/24 05/28/24 05/28/24 20:54 20:54 20:54 WBC 20.0 H RBC 3.65 L Hgb 11.4 L Hct 37.9 MCV 103.8 H MCH 31.2 MCHC 30.1 L RDW Std Deviation 79.3 H RDW Coeff of Iveth 21.6 H Plt Count 436 MPV 11.5 Immature Gran % (Auto) 1.700 H Neut % (Auto) 73.0 H Lymph % (Auto) 18.9 L Estill % (Auto) 3.0 Eos % (Auto) 2.7 Baso % (Auto) 0.7 Absolute Neuts (auto) 14.6 H Absolute Lymphs (auto) 3.79 Nucleated RBC % 0.6 Platelet Estimate SLT INC Plt Morphology Comment LARGE RBC Morphology N CHROM Anisocytosis 1+ Macrocytosis 1+ Sodium 138 Cancelled Potassium 4.4 Cancelled Chloride 101 Carbon Dioxide Anion Gap BUN Creatinine Estim Creat Clear Calc Est GFR (MDRD) Non-Af BUN/Creatinine Ratio Glucose Calcium Phosphorus Total Bilirubin AST ALT Alkaline Phosphatase Total Protein Albumin Globulin Albumin/Globulin Ratio Lipase 05/28/24 05/28/24 05/28/24 20:54 20:54 20:54 WBC RBC Hgb Hct MCV MCH MCHC RDW Std Deviation RDW Coeff of Iveth Plt Count MPV Immature Gran % (Auto) Neut % (Auto) Lymph % (Auto) Estill % (Auto) Eos % (Auto) Baso % (Auto) Absolute Neuts (auto) Absolute Lymphs (auto) Nucleated RBC % Platelet Estimate Plt Morphology Comment RBC Morphology Anisocytosis Macrocytosis Sodium Potassium Chloride Cancelled Carbon Dioxide 15.5 L Cancelled Anion Gap 22 H Cancelled BUN TNP Creatinine Estim Creat Clear Calc Est GFR (MDRD) Non-Af BUN/Creatinine Ratio Glucose Calcium Phosphorus Total Bilirubin AST ALT Alkaline Phosphatase Total Protein Albumin Globulin Albumin/Globulin Ratio Lipase 05/28/24 05/28/24 05/28/24 20:54 20:54 20:54 WBC RBC Hgb Hct MCV MCH MCHC RDW Std Deviation RDW Coeff of Iveth Plt Count MPV Immature Gran % (Auto) Neut % (Auto) Lymph % (Auto) Estill % (Auto) Eos % (Auto) Baso % (Auto) Absolute Neuts (auto) Absolute Lymphs (auto) Nucleated RBC % Platelet Estimate Plt Morphology Comment RBC Morphology Anisocytosis Macrocytosis Sodium Potassium Chloride Carbon Dioxide Anion Gap BUN Cancelled 38 H Creatinine TNP Cancelled Estim Creat Clear Calc Est GFR (MDRD) Non-Af BUN/Creatinine Ratio Glucose Calcium Phosphorus Total Bilirubin AST ALT Alkaline Phosphatase Total Protein Albumin Globulin Albumin/Globulin Ratio Lipase 05/28/24 05/28/24 05/28/24 20:54 20:54 20:54 WBC RBC Hgb Hct MCV MCH MCHC RDW Std Deviation RDW Coeff of Iveth Plt Count MPV Immature Gran % (Auto) Neut % (Auto) Lymph % (Auto) Estill % (Auto) Eos % (Auto) Baso % (Auto) Absolute Neuts (auto) Absolute Lymphs (auto) Nucleated RBC % Platelet Estimate Plt Morphology Comment RBC Morphology Anisocytosis Macrocytosis Sodium Potassium Chloride Carbon Dioxide Anion Gap BUN Creatinine 1.33 H Estim Creat Clear Calc Cancelled 35.01 L Est GFR (MDRD) Non-Af TNP Cancelled BUN/Creatinine Ratio Glucose Calcium Phosphorus Total Bilirubin AST ALT Alkaline Phosphatase Total Protein Albumin Globulin Albumin/Globulin Ratio Lipase 05/28/24 05/28/24 05/28/24 20:54 20:54 20:54 WBC RBC Hgb Hct MCV MCH MCHC RDW Std Deviation RDW Coeff of Iveth Plt Count MPV Immature Gran % (Auto) Neut % (Auto) Lymph % (Auto) Estill % (Auto) Eos % (Auto) Baso % (Auto) Absolute Neuts (auto) Absolute Lymphs (auto) Nucleated RBC % Platelet Estimate Plt Morphology Comment RBC Morphology Anisocytosis Macrocytosis Sodium Potassium Chloride Carbon Dioxide Anion Gap BUN Creatinine Estim Creat Clear Calc Est GFR (MDRD) Non-Af 40 L BUN/Creatinine Ratio UNABLE TO CALCULATE L Cancelled Glucose 218 H Cancelled Calcium 9.6 Phosphorus Total Bilirubin AST ALT Alkaline Phosphatase Total Protein Albumin Globulin Albumin/Globulin Ratio Lipase 05/28/24 05/28/24 20:54 20:54 WBC RBC Hgb Hct MCV MCH MCHC RDW Std Deviation RDW Coeff of Iveth Plt Count MPV Immature Gran % (Auto) Neut % (Auto) Lymph % (Auto) Estill % (Auto) Eos % (Auto) Baso % (Auto) Absolute Neuts (auto) Absolute Lymphs (auto) Nucleated RBC % Platelet Estimate Plt Morphology Comment RBC Morphology Anisocytosis Macrocytosis Sodium Potassium Chloride Carbon Dioxide Anion Gap BUN Creatinine Estim Creat Clear Calc Est GFR (MDRD) Non-Af BUN/Creatinine Ratio Glucose Calcium Cancelled Phosphorus Cancelled Total Bilirubin 0.35 AST 26 ALT 17 Alkaline Phosphatase 109 H Total Protein 7.1 Albumin 4.0 Cancelled Globulin 3.1 Albumin/Globulin Ratio 1.3 Lipase 25 Discharge Plan Triage Chief Complaint: Nausea/Vomiting/Diarrhea ED Provider: Albert Chavez Dx/Rx/DC Orders Clinical Impression: Abdominal pain, Chronic anticoagulation, Leukocytosis, Vomiting, Diarrhea, Acute dehydration Prescriptions: No Action (DME) Handicap Placard See Rx Instructions .Route .MEDSUPPLY Qty: 1 0RF Rx Instructions: expires 07/2025 meclizine 25 mg tablet 25 mg PO BID PRN (Reason: dizziness) Qty: 60 5RF cholecalciferol (vitamin D3) [Vitamin D3] 25 mcg (1,000 unit) capsule 25 mcg PO QDAY acetaminophen 500 mg Tablet 1,000 mg PO BID mecobalamin (vitamin B12) 1,000 mcg tablet,disintegrating 1,000 mcg sublingual DAILY Qty: 30 0RF Rx Instructions: place tablet under tongue and allow to dissolve for at least30 secs before swallowing Xarelto 20 mg tablet 20 mg PO DAILY Qty: 30 6RF Rx Instructions: must administer with evening meal amlodipine 5 mg tablet 5 mg PO DAILY Qty: 30 12RF lisinopril 5 mg tablet 5 mg PO QDAY Qty: 90 3RF hydroxyurea 500 mg capsule 1,000 mg PO DAILY 90 Days Qty: 120 0RF Rx Instructions: Daily except Sundays and Wednesdays, adjust dose as instructed Primary Care Provider: Tor Law Chi Referrals: Tor Law Chi, MD [Primary Care Provider] - Print Language: Lao
[2024-05-28 21:39] LABS: Absolute Lymphocyte Count 3.79 X10^3/uL (0.83-4.51); Absolute Neutrophil Count 14.6 X10^3/uL (2.0-7.7); Basophil# 0.14 X10^3/uL; Basophil% 0.7 % (0-1); Eosinophil# 0.55 X10^3/uL; Eosinophils% 2.7 % (0-5); Hematocrit 37.9 % (37-47); Hemoglobin 11.4 g/dL (12.0-15.0); Lymphocyte # 3.79 X10^3/ul (0.83-4.51); Lymphocyte % 18.9 % (19-41); Mean Corp Hgb Conc 30.1 g/dL (32-36); Mean Corpuscular Hgb 31.2 pg (27.0-32.0); Mean Corpuscular Volume 103.8 fL (81-99); Mean Platelet Vol. 11.5 fl (6.2-12.0); Monocyte# 0.61 X10^3/uL; NRBC Flagged by Analyzer 0.6 % (0-5); POSITIVE MORPHOLOGY YES; Platelet Count 436 K/mm3 (150-450); RBC Distribution Width CV 21.6 % (11.6-14.6); RBC Distribution Width SD 79.3 fl (35.1-43.9); Red Blood Count 3.65 M/mm3 (4.2-5.4)
[2024-05-28] MEDS: Ondansetron 4 MG/2 ML Vial IV (21:42)
[2024-05-28] MEDS: Morphine 4 MG/ML Syringe IV (21:42)
[2024-05-28] MEDS: 0.9% Normal Saline (1000mL) 1,000 ML 999 ML IV (21:42)
[2024-05-28 22:14] LABS: Lipase 25 U/L (13-75)
[2024-05-28] MEDS: Dicyclomine 20 MG/2 ML Vial IM (22:15)
[2024-05-28 22:27] LABS: Differential Indicated SCAN CRITERIA MET
[2024-05-28 22:28] LABS: Anisocytosis 1+; Macrocytosis 1+; Platelet Estimate SLT INC (ADEQ); Platelet Morphology LARGE; Red Cell Morphology N CHROM NORMAL (NORM C&C)
[2024-05-28 23:55] LABS: BUN 38 mg/dL (4-19); Creatinine, Serum 1.33 mg/dL (0.70-1.20); EST Glomerular Filtration Rate 40 (>60); Estimated Creatinine Clearance 35.01 ml/min (50-250)
[2024-05-29] VITALS (19 sets, daily range): BP systolic 142–225; BP diastolic 62–90; PULSE 78–99; RESP 15–28; TEMP 35.7–36.4; O2SAT 96–100; BMI 28.6
[2024-05-29 00:19] LABS: ALB/GLOB Ratio 1.3 RATIO (0.9-2.4); AST(SGOT) 26 U/L (<=31); Alanine Aminotransfer ALT/SGPT 17 U/L (<=34); Alkaline Phosphatase 109 U/L (35-104); Anion Gap 22 (5-15); BUN/Creat Ratio UNABLE TO CALCULATE RATIO (10-20); Calcium,Total 9.6 mg/dL (7.6-11.0); Carbon Dioxide 15.5 mmol/L (21.0-32.0); Chloride 101 mmol/L (98-108); Globulin 3.1 g/dL (2.2-4.2); Glucose 218 mg/dL (70-99); Potassium 4.4 mmol/L (3.3-5.1); Protein, Total 7.1 g/dL (5.9-8.4); Sodium Level 138 mmol/L (133-145); Total Bilirubin 0.35 mg/dL (0.00-1.30)
[2024-05-29] MEDS: Ondansetron 4 MG/2 ML Vial IV (00:46)
[2024-05-29] MEDS: Morphine 4 MG/ML Syringe IV (00:46)
--- NOTE | 2024-05-29 01:19 | EKG12_ITS ---
Test Reason : NAUSEA/VOMITING Blood Pressure : */* mmHG Vent. Rate : 96 BPM Atrial Rate : 96 BPM P-R Int : 208 ms QRS Dur : 94 ms QT Int : 358 ms P-R-T Axes : 52 17 52 degrees QTcB Int : 452 ms Normal sinus rhythm Normal ECG Confirmed by SABRINA CHILDRESS, TERESO ([id number]), editor & co founder CATRACHITO WYATT ([id number]) on 05/29/2024 8:25:39 AM Referred By: KAMRYN Confirmed By: TERESO BENNETT MD
--- NOTE | 2024-05-29 01:19 | RAD_ITS ---
EXAM: Diagnostic humerus minimum two views CLINICAL HISTORY: Screening for contrast COMPARISON: None available TECHNIQUE: Two views right humerus FINDINGS: There is a large amount of soft tissue contrast at the level of the elbow up to the axilla within the right upper extremity. 92 cc of Isovue 370 contrast was injected for preceding CT abdomen and pelvis. RAD/Humerus min 2 Views IMPRESSION: There is a large amount of soft tissue contrast at the level of the elbow up to the axilla within the right upper extremity consistent with extravasation. 92 cc of Isovue 370 contrast was injected for p receding CT abdomen and pelvis. May further clinically correlate. Reading Location: [id number]
[2024-05-29] MEDS: cloNIDine HCl 0.1 MG Tablet PO (02:01)
--- NOTE | 2024-05-29 03:35 | HP.PCM.HOS_ITS ---
[facility] - General General Date of Admission: 05/29/24 Date of Service: 05/29/24 Chief Complaint: Abdominal Pain with Nausea, Vomiting and Diarrhea. 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 Ms. Newman reports her symptoms began approximately 6:00 PM yesterday evening with the sudden-onset of abdominal pain that was moderate and aching with nothing seeming to make the pain better or worse. She then subsequently developed nausea and vomiting with bilious emesis followed by nonbloody diarrhea with back pain. She states she had been feeling fine up until that point in the evening when her symptoms started. She denies associated fever, chills, runny nose, sore throat, ear pain, chest pain, SOB, cough, dysuria, hematuria, headache or rash. In the ER she was noted to have Severe Leukocytosis of 20K present on admission with Left-shift of 1.7% with corresponding CT evidence of mild diffuse pericolonic stranding along the sigmoid colon consistent with suspected Colitis with additional evidence of diverticulosis with less likely diverticulitis with liquid intraluminal material within the lower sigmoid and rectum suggesting diarrhea along with an incidentally noted ~2.9 cm cystic focus in the Right ovary; with recommendation to follow up with nonemergent pelvic ultrasound c omplicated by laboratory evidence of SARA; with elevated serum creatinine of 1.33 mg/dL and BUN of 38 mg/dL (up from her baseline of 0.86 mg/dL and BUN of 25 mg/dL on May 13, 2024) suspected to be due to Dehydration arising from Nausea, Vomiting and Nonbloody Diarrhea all made worse by Extravasation of IV contrast dye into her Right arm and she was then admitted to the PCU for ongoing care for a stay that is expected to extend beyond 2 midnights. [facility] Medical History Anticoagulant long-term use TIA (transient ischemic attack) Paresthesias in right hand Episodic confusion Chronic kidney disease (CKD) History of pulmonary embolus (PE) (12/2018) Lung nodule Anemia Hepatic steatosis Osteoarthritis Essential (primary) hypertension Secondary pulmonary arterial hypertension High blood hemoglobin A2 Right ventricular diastolic dysfunction Pulmonary embolism, bilateral (12/2018) Hypoxemia HLD (hyperlipidemia) Juvenile rheumatic fever Hypercoagulable state Obesity (BMI 30-39.9) Elevated troponin Home Medications ?Medication ?Instructions ?Recorded ?Last Taken ?Type rivaroxaban 20 mg tablet (Xarelto) 20 mg PO DAILY bloo d thinner #30 04/16/19 09/07/21 Rx tabs Handicap Placard #1 ea 07/05/20 Unknown Rx acetaminophen 500 mg tablet 1,000 mg PO BID back pain 09/08/21 09/08/21 History mecobalamin (vitamin B12) 1,000 1,000 mcg sublingual D AILY 09/09/21 Unknown Rx mcg disintegrating supplement #30 tabs tablet,sublingual meclizine 25 mg tablet 25 mg PO BID PRN dizziness # 60 tabs 11/20/22 Unknown Rx amlodipine 5 mg tablet 5 mg PO DAILY htn #30 tabs 1 Unknown Rx lisinopril 5 mg tablet 5 mg PO QDAY htn #90 tabs Unknown Rx hydroxyurea 500 mg capsule 1,000 mg (2 x 500 mg) PO DA NANO 04/08/24 Unknown Rx cancer 90 days #120 caps Allergy/AdvReac Type Severity Reaction Status Date / Time No Known Allergies Allergy Verified 05/19/24 15:32 Family History Mother Arthritis Son DVT (deep venous thrombosis) Daughter DVT (deep venous thrombosis) Surgical History History of bilateral knee replacement History of right hip replacement History of cataract surgery S/P tendon repair History of right knee joint replacement History of left knee replacement History of right hip replacement History of cataract extraction History of appendectomy Social History household members: children housing: house Smoking Status: Never smoker second hand exposure: Yes alcohol intake: current alcohol intake frequency: holidays/special occasions only substance use type: does not use caffeine: Yes Type: coffee Number of servings: 1 what type of physical activity do you participate in: none seatbelt use: always additional social history: Lives with daughter and son-in-law ROS ROS Narrative Review of Systems: Constitutional: Patient denies fever or chills. Eyes: Patient denies changes in vision or discharge from eyes. ENT: Patient denies runny nose, sore throat or ear pain. Resp: Patient denies SOB or cough. CV: Patient denies chest pain, palpitations or heart racing. GI: Patient admits to epigastric abdominal pain, nausea and vomiting with bilious emesis and nonbloody diarrhea as per HPI. : Patient denies dysuria or hematuria. MSK: Patient admits to back pain as per HPI. Skin: Patient denies rash, abscess, wounds or jaundice. Psych: Patient denies symptoms of uncontrolled depression or anxiety. Neuro: Patient denies headache, paresthesias or focal neurologic deficits. Allergy: Patient denies lip swelling, tongue swelling or urticaria. Hematology: Patient admits to easy bleeding on rivaroxaban. Endocrinology: Patient denies polyuria, polydipsia or polyphagia. 14point ROS otherwise negative except for positives noted above. Vital Signs Vital Signs Vital Signs: 05/28/24 20:37 05/28/24 21:51 05/28/24 22:00 Temperature 96.2 F L Temperature Source Temporal Pulse Rate 90 86 85 Respiratory Rate 16 23 H 20 H Blood Pressure 172/75 H 190/81 H Blood Pressure Mean 107 113 Pulse Ox 98 97 Oxygen Delivery Method Room Air Oxygen Flow Rate (L/min) 05/28/24 22:15 05/28/24 22:30 05/28/24 22:38 Temperature Temperature Source Pulse Rate 84 81 Respiratory Rate 25 H 15 Blood Pressure Blood Pressure Mean Pulse Ox 98 89 86 Oxygen Delivery Method Room Air Oxygen Flow Rate (L/min) 05/28/24 22:39 05/28/24 22:45 05/28/24 23:00 Temperature Temperature Source Pulse Rate 79 88 Respiratory Rate 15 15 Blood Pressure 190/70 H 198/74 H Blood Pressure Mean 103 107 Pulse Ox 95 96 97 Oxygen Delivery Method Nasal Cannula Oxygen Flow Rate (L/min) 2 05/28/24 23:15 05/28/24 23:30 05/28/24 23:45 Temperature Temperature Source Pulse Rate 86 88 87 Respiratory Rate 15 13 14 Blood Pressure 202/73 H 197/73 H 184/67 H Blood Pressure Mean 108 108 100 Pulse Ox 97 96 96 Oxygen Delivery Method Oxygen Flow Rate (L/min) 05/29/24 00:09 05/29/24 00:15 05/29/24 00:30 Temperature Temperature Source Pulse Rate 89 96 93 Respiratory Rate 16 17 16 Blood Pressure Blood Pressure Mean Pulse Ox 99 Oxygen Delivery Method Oxygen Flow Rate (L/min) 05/29/24 00:42 05/29/24 00:45 05/29/24 01:00 Temperature Temperature Source Pulse Rate 91 93 89 Respiratory Rate 25 H 28 H 15 Blood Pressure 193/63 H 203/73 H 202/69 H Blood Pressure Mean 101 111 107 Pulse Ox 99 Oxygen Delivery Method Oxygen Flow Rate (L/min) 05/29/24 01:15 05/29/24 01:30 05/29/24 01:45 Temperature Temperature Source Pulse Rate 89 95 95 Respiratory Rate 19 H 25 H 21 H Blood Pressure 211/65 H 219/82 H 225/83 H Blood Pressure Mean 103 120 122 Pulse Ox 100 100 100 Oxygen Delivery Method Oxygen Flow Rate (L/min) 05/29/24 01:57 05/29/24 02:00 05/29/24 02:15 Temperature Temperature Source Pulse Rate 97 92 93 Respiratory Rate 24 H 17 28 H Blood Pressure 176/78 H 178/77 H Blood Pressure Mean 107 106 Pulse Ox Oxygen Delivery Method Oxygen Flow Rate (L/min) 05/29/24 02:27 05/29/24 02:41 Temperature 97.5 F L Temperature Source Pulse Rate 78 Respiratory Rate 16 Blood Pressure 152/90 H Blood Pressure Mean 110 Pulse Ox 98 Oxygen Delivery Method Nasal Cannula Oxygen Flow Rate (L/min) 2 Weight Weight: 181 lb 7.047 oz Body Mass Index (BMI) 30.2 Physical Exam Const alert and oriented x3 Constitutional Narrative: Patient appears ill and very fatigued. General Appearance: cooperative HEENT normocephalic, head/scalp atraumatic, hearing grossly normal bilaterally and moist oral mucous membranes Eyes PERRL and EOMs intact bilaterally Neck no lymphadenopathy, supple and no JVD Resp normal respiratory effort, no retractions, no use of accessory muscles and clear to auscultation bilaterally Cardio regular rate and regular rhythm GI normal to inspection, nondistended, normoactive bowel sounds, soft to palpation, non-tender and non-distended Extremity normal to inspection, full ROM and no clubbing, cyanosis or edema Skin Skin Narrative: Patient has no evidence of rash, abscess, wounds or jaundice. Neuro oriented x3, CN's II-XII intact bilaterally, moves all extremities and no focal motor deficits Sensorium / Orientation: awake, alert, oriented to person, oriented to place and oriented to time Speech: speech normal Psych affect normal Results Medical Records Data Attestation: I reviewed the patient's medical records Lab / Micro Data Attestation: I reviewed the patient's lab results. 05/28/24 20:54 05/28/24 20:54 Labs: Laboratory Results - last 24 hr 05/28/24 20:54: WBC 20.0 H, RBC 3.65 L, Hgb 11.4 L, Hct 37.9, MCV 103.8 H, MCH 31.2, MCHC 30.1 L, RDW Std Deviation 79.3 H, RDW Coeff of Iveth 21.6 H, Plt Count 436, MPV 11.5, Immature Gran % (Auto) 1.700 H, Neut % (Auto) 73.0 H, Lymph % (Auto) 18.9 L, [place] % (Auto) 3.0, Eos % (Auto) 2.7, Baso % (Auto) 0.7, Absolute Neuts (auto) 14.6 H, Absolute Lymphs (auto) 3.79, Nucleated RBC % 0.6, Platelet Estimate SLT INC, Plt Morphology Comment LARGE, RBC Morphology N CHROM, Anisocytosis 1+, Macrocytosis 1+, Sodium 138 05/28/24 20:54: Sodium Cancelled, Potassium 4.4 05/28/24 20:54: Potassium Cancelled, Chloride 101 05/28/24 20:54: Chloride Cancelled, Carbon Dioxide 15.5 L 05/28/24 20:54: Carbon Dioxide Cancelled, Anion Gap 22 H 05/28/24 20:54: Anion Gap Cancelled, BUN TNP 05/28/24 20:54: BUN Cancelled 05/28/24 20:54: BUN 38 H, Creatinine TNP 05/28/24 20:54: Creatinine Cancelled 05/28/24 20:54: Creatinine 1.33 H, Estim Creat Clear Calc Cancelled 05/28/24 20:54: Estim Creat Clear Calc 35.01 L, Est GFR (MDRD) Non-Af TNP 05/28/24 20:54: Est GFR (MDRD) Non-Af Cancelled 05/28/24 20:54: Est GFR (MDRD) Non-Af 40 L, BUN/Creatinine Ratio UNABLE TO CALCULATE L 05/28/24 20:54: BUN/Creatinine Ratio Cancelled, Glucose 218 H 05/28/24 20:54: Glucose Cancelled, Calcium 9.6 05/28/24 20:54: Calcium Cancelled, Phosphorus Cancelled, Total Bilirubin 0.35, AST 26, ALT 17, Alkaline Phosphatase 109 H, Total Protein 7.1, Albumin 4.0 05/28/24 20:54: Albumin Cancelled, Globulin 3.1, Albumin/Globulin Ratio 1.3, Lipase 25 Imaging Radiology Impression Abdomen/Pelvis CT 05/28/24 21:23 IMPRESSION: Patient was administered IV contrast as above however the images do not show appreciable intravenous contrast present. Patient reportedly did not complain of any pain at the injection site although can not exclude extravasation. A 2nd set of images performed and still no appreciable contrast identified. Discussed with Dr. Jones at 1:15 a.m. 05/29/2024 Suggestion of mild diffuse pericolonic stranding along the sigmoid colon, possible colitis. Diverticulosis is present however no focal inflamed appearing diverticulum seen in favor less likely diverticulitis although not excluded. Liquid intraluminal material within the lower sigmoid and rectum suggests diarrhea. 2.9 cm cystic focus right ovary. May follow-up with nonemergent pelvic ultrasound. Reading Location: [id number] Humerus X-Ray 05/29/24 01:19 IMPRESSION: There is a large amount of soft tissue contrast at the level of the elbow up to the axilla within the right upper extremity consistent with extravasation. 92 cc of Isovue 370 contrast was injected for preceding CT abdomen and pelvis. May further clinically correlate. Reading Location: [facility] Assessment & Plan Assessment/Plan (1) Colitis: (2) Leukocytosis: QUALIFIERS: Leukocytosis type: unspecified Qualified Code(s): D 72.829 - Elevated white blood cell count, unspecified (3) SARA (acute kidney injury): (4) CKD stage 3a, GFR 45-59 ml/min: (5) Nausea & vomiting: QUALIFIERS: Vomiting type: unspecified Qualified Code(s): R11.2 - Nausea with vomiting, unspecified (6) Diarrhea: QUALIFIERS: Diarrhea type: presumed infectious Qualified Code(s): R19.7 - Diarrhea, unspecified (7) Extravasation of intravenous contrast medium: (8) Ovarian cyst, right: (9) Obesity (BMI 30.0-34.9): (10) History of pulmonary embolus (PE): (11) Anticoagulant long-term use: PLAN: Plan 1. Severe Leukocytosis of 20K present on admission with Left-shift of 1.7% with corresponding CT evidence of mild diffuse pericolonic stranding along the sigmoid colon consistent with suspected Colitis with additional evidence of diverticulosis with less likely diverticulitis with liquid intraluminal material within the lower sigmoid and rectum suggesting diarrhea - Admit to PCU. Start IV piperacillin-tazobactam to cover gram-negatives and anaerobes since it was not initiated in ER due to time to obtain CT/interpretation, and await culture and sensitivity data. Patient did not have fever, hypotension or other signs of sepsis present on admission. Check stool studies. Give pantoprazole 40 mg IV daily. Give acetaminophen prn for [id number] (level 1-5/10) pain or fever. Give morphine IV prn for severe (level 6-10/10) pain. 2. SARA; in the setting of CKD; stage IIIa with elevated serum creatinine of 1.33 mg/dL and BUN of 38 mg/dL (up from her baseline of 0.86 mg/dL and BUN of 25 mg/dL on May 13, 2024) suspected to be due to Dehydration arising from #1 - Aggressively volume resuscitate and recheck renal indices daily to follow trend of hopeful improvement. 3. Nausea, Vomiting and Nonbloody Diarrhea due to #1 & #2 - Give ondansetron IV prn nausea and vomiting. Give promethazine IM prn breakthrough nausea. 4. Extravasation of IV contrast dye into her Right arm amplifying the pain and discomfort caused by #1 - #3 - Continue supportive care and monitor for improvement. 5. ~2.9 cm cystic focus in the Right ovary; with recommendation to follow up with nonemergent pelvic ultrasound adding to the medical complexity of #1 - #4 - Will defer timing of pelvic ultrasound to daystnft hospitalist when patient has had an opportunity to improve. 6. Obesity; with BMI of 30.2 this admission adding to the burden of disease outlined from #1 - #5 - Weight loss will be recommended. Check TSH. This complicates her case and may hamper recovery. 7. History of recurrent bilateral PE (2017 & 2019); on rivaroxaban - Maintain rivaroxaban as previous. 8. 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 9. Essential Hypertension; on lisinopril and amlodipine - Hold lisinopril in light of #2. Continue amlodipine plus give prn IV hydralazine for systolic blood pressure > 160 mmHg. 10. Remote history of juvenile rheumatic fever - Noted. 11. History of hepatic steatosis - Noted. 12. History of secondary pulmonary arterial hypertension - Noted. 13. History of lung nodule - Noted. 14. History of Right ventricular diastolic dysfunction; with RVSP of 62 mmHg - Noted. 15. History of TIA - Noted. 16. Chronic iron deficiency anemia - Stable with hemoglobin of 11.4 g/dL and MCV of 103.8 fL present on admission. Check B12 and Folate levels with significant macrocytosis. 17. History of BPPV; on prn meclizine - Maintain current regimen. 18. History of cataract surgery - Noted for the sake of completeness. 19. History of appendectomy - Noted. 20. History of paresthesias of Right hand - Noted. 21. OA; s/p bilateral TKR's and Right THR - Give acetaminophen prn as per pain scale outlined in #1. 22. DVT prophylaxis - Patient on rivaroxaban for #7 which will be continued. Total time: Approximately (but not less than) 75 minutes. Charges/Coding Visit Charges Inpatient E&M: 27273 Init Hosp L3
[2024-05-29] MEDS: Dicyclomine 10 MG Capsule 20 MG PO (04:48)
[2024-05-29] MEDS: 0.9% Normal Saline (1000mL) 1,000 ML 100 ML IV ×2 (05:56→17:09)
[2024-05-29] MEDS: Pantoprazole Sodium 40 MG in 0.9% Normal Saline (100mL MB+) 100 ML 330 MG IV (05:59)
[2024-05-29] MEDS: Piperacil/Tazobactam 3.375 GM in 0.9% Normal Saline (50mL MB+) 50 ML IV ×3 (06:24→21:20)
[2024-05-29 07:25] LABS: Absolute Lymphocyte Count 0.98 X10^3/uL (0.83-4.51); Absolute Neutrophil Count 16.6 X10^3/uL (2.0-7.7); Basophil# 0.16 X10^3/uL; Basophil% 0.8 % (0-1); Eosinophil# 0.14 X10^3/uL; Eosinophils% 0.7 % (0-5); Hematocrit 40.2 % (37-47); Hemoglobin 12.3 g/dL (12.0-15.0); Lymphocyte # 0.98 X10^3/ul (0.83-4.51); Lymphocyte % 5.2 % (19-41); Mean Corp Hgb Conc 30.6 g/dL (32-36); Mean Corpuscular Hgb 31.1 pg (27.0-32.0); Mean Corpuscular Volume 101.8 fL (81-99); Mean Platelet Vol. 11.9 fl (6.2-12.0); Monocyte# 0.62 X10^3/uL; Monocyte% 3.3 % (0-10); NRBC Flagged by Analyzer 0.6 % (0-5); Neutrophil # 16.61 X10^3/uL (2.7-7.7); Neutrophil % 88.1 % (47-70); POSITIVE MORPHOLOGY YES; Platelet Count 507 K/mm3 (150-450); RBC Distribution Width CV 21.2 % (11.6-14.6); RBC Distribution Width SD 77.9 fl (35.1-43.9); Red Blood Count 3.95 M/mm3 (4.2-5.4); White Blood Count 18.9 K/mm3 (4.4-11.0)
[2024-05-29 07:40] LABS: Differential Indicated SCAN CRITERIA MET
--- NOTE | 2024-05-29 07:45 | PN.HOSP_ITS ---
Reason for Visit Reason for Visit: Nausea/vomiting/diarrhea Subjective Subjective Patient is an 78-year-old white female who presented to the emergency department at [facility] early in the morning of 05/29/2024 with chief complaint of nausea/abdominal pain/diarrhea. Patient was with friends and around 6 PM she started having some epigastric pain with associated nausea, vomiting, and acute diarrhea. She was feeling fine earlier in the day. Patient does have a history of polycythemia vera and is on chronic anticoagulation with rivaroxaban as well as hydroxyurea. She also requires intermittent phlebotomies. Emesis was nonbloody and [id number] appearing and seem to be bilious in nature and diarrhea was nonbloody or melanotic. She had no fever or chills. Vital signs on presentation showed a temperature of 96.2, heart rate was 90, respiratory rate 16, blood pressure was 172/75 and pulse ox was 98% on room air. CBC on presentation showed a white count of 20,000 with a chronic stable anemia having a hemoglobin of 11.4, normal platelet count and a left shift showing a 73% neutrophilia. Chemistry panel showed a serum bicarb of 15.5 with an anion gap of 22. BUN was 38 and serum creatinine was 1.33 consistent with dehydration entheses baseline creatinine appears to be between 0.8 and 1.0) serum glucose was elevated at 218 diabetic at baseline. Lipase was within normal limits. TSH is 1.08. CT of the abdomen pelvis was performed and showed mild diffuse pericolonic stranding along the sigmoid colon that is consistent with possible colitis with diverticulosis but no appearing inflamed diverticulum and liquid intraluminal material in the lower sigmoid colon suggestive of diarrhea. A 2.9 cm cystic foci was noted in the right ovary and outpatient pelvic ultrasound was recommended. Occult stool was negative. Stool studies were ordered but she has not yet had another bowel movement so there have not been performed. She was given aggressive high IV fluids, IV antibiotics with Zosyn and admitted to the hospital for ongoing care. Patient reports she still feels great. No further diarrhea no vomiting. Still some intermittent waves of nausea. Abdominal pain is present but improved. Objective Data Objective Data Vital Signs: Vital Signs Temp Pulse Resp BP Pulse Ox O2 Del Method O2 Flow Rate 97.3 F L 99 17 148/65 H 100 Nasal Cannula 2 05/29/24 06:01 05/29/24 06:01 05/29/24 06:01 05/29/24 06:01 05/29/24 06:01 05/29/24 06:10 05/29/24 06:10 Oxygen Flow Rate (L/min) 2 Oxygen Delivery Method Nasal Cannula Weight: 78.154 kg Body Mass Index (BMI) 28.6 Intake & Output: Intake and Output for Last 24 Hours 05/27/24 05/28/24 05/29/24 23:59 23:59 23:59 Intake Total 1110 / 1110 Output Total 600 / 600 Balance 510 / 510 Lab / Micro Data 05/29/24 06:56 05/29/24 06:56 Labs: Laboratory Results - last 24 hr 05/28/24 20:54: WBC 20.0 H, RBC 3.65 L, Hgb 11.4 L, Hct 37.9, MCV 103.8 H, MCH 31.2, MCHC 30.1 L, RDW Std Deviation 79.3 H, RDW Coeff of Iveth 21.6 H, Plt Count 436, MPV 11.5, Immature Gran % (Auto) 1.700 H, Neut % (Auto) 73.0 H, Lymph % (Auto) 18.9 L, [place] % (Auto) 3.0, Eos % (Auto) 2.7, Baso % (Auto) 0.7, Absolute Neuts (auto) 14.6 H, Absolute Lymphs (auto) 3.79, Nucleated RBC % 0.6, Platelet Estimate SLT INC, Plt Morphology Comment LARGE, RBC Morphology N CHROM, Anisocytosis 1+, Macrocytosis 1+, Sodium 138 05/28/24 20:54: Sodium Cancelled, Potassium 4.4 05/28/24 20:54: Potassium Cancelled, Chloride 101 05/28/24 20:54: Chloride Cancelled, Carbon Dioxide 15.5 L 05/28/24 20:54: Carbon Dioxide Cancelled, Anion Gap 22 H 05/28/24 20:54: Anion Gap Cancelled, BUN TNP 05/28/24 20:54: BUN Cancelled 05/28/24 20:54: BUN 38 H, Creatinine TNP 05/28/24 20:54: Creatinine Cancelled 05/28/24 20:54: Creatinine 1.33 H, Estim Creat Clear Calc Cancelled 05/28/24 20:54: Estim Creat Clear Calc 35.01 L, Est GFR (MDRD) Non-Af TNP 05/28/24 20:54: Est GFR (MDRD) Non-Af Cancelled 05/28/24 20:54: Est GFR (MDRD) Non-Af 40 L, BUN/Creatinine Ratio UNABLE TO CALCULATE L 05/28/24 20:54: BUN/Creatinine Ratio Cancelled, Glucose 218 H 05/28/24 20:54: Glucose Cancelled, Calcium 9.6 05/28/24 20:54: Calcium Cancelled, Phosphorus Cancelled, Total Bilirubin 0.35, AST 26, ALT 17, Alkaline Phosphatase 109 H, Total Protein 7.1, Albumin 4.0 05/28/24 20:54: Albumin Cancelled, Globulin 3.1, Albumin/Globulin Ratio 1.3, Lipase 25 05/29/24 06:56: WBC 18.9 H, RBC 3.95 L, Hgb 12.3, Hct 40.2, MCV 101.8 H, MCH 31.1, MCHC 30.6 L, RDW Std Deviation 77.9 H, RDW Coeff of Iveth 21.2 H, Plt Count 507 H, MPV 11.9, Immature Gran % (Auto) 1.900 H, Neut % (Auto) 88.1 H, Lymph % (Auto) 5.2 L, [place] % (Auto) 3.3, Eos % (Auto) 0.7, Baso % (Auto) 0.8, Absolute Neuts (auto) 16.6 H, Absolute Lymphs (auto) 0.98, Nucleated RBC % 0.6 Radiography Diagnostic Testing: Radiology Impression Abdomen/Pelvis CT 05/28/24 21:23 IMPRESSION: Patient was administered IV contrast as above however the images do not show appreciable intravenous contrast present. Patient reportedly did not complain of any pain at the injection site although can not exclude extravasation. A 2nd set of images performed and still no appreciable contrast identified. Discussed with Dr. Jones at 1:15 a.m. 05/29/2024 Suggestion of mild diffuse pericolonic stranding along the sigmoid colon, possible colitis. Diverticulosis is present however no focal inflamed appearing diverticulum seen in favor less likely diverticulitis although not excluded. Liquid intraluminal material within the lower sigmoid and rectum suggests diarrhea. 2.9 cm cystic focus right ovary. May follow-up with nonemergent pelvic ultrasound. Reading Location: [facility] Humerus X-Ray 05/29/24 01:19 IMPRESSION: There is a large amount of soft tissue contrast at the level of the elbow up to the axilla within the right upper extremity consistent with extravasation. 92 cc of Isovue 370 contrast was injected for preceding CT abdomen and pelvis. May further clinically correlate. Reading Location: [facility] Assessment & Plan Assessment/Plan (1) SARA (acute kidney injury): (2) Diarrhea: QUALIFIERS: Diarrhea type: presumed infectious Qualified Code(s): R19.7 - Diarrhea, unspecified (3) Nausea & vomiting: QUALIFIERS: Vomiting type: unspecified Qualified Code(s): R11.2 - Nausea with vomiting, unspecified (4) Ovarian cyst, right: (5) Acute dehydration: (6) Abdominal pain: (7) Colitis: PLAN: Plan Acute colitis -Does not appear consistent with diverticular so likely inflammatory versus infectious -Continue Zosyn for now -Stool studies are pending but patient has not yet produced any stool -As needed antiemetics -As needed pain medications -Continue IV fluids -Stools occult negative SARA - Baseline creatinine is consistent with CKD stage II having a creatinine of 0.8-1.0 -Serum creatinine on admission was 1.33 -Trending down and responding to IV fluids -Will continue IV fluids today Extravasation of IV contrast in the right arm -Continue supportive care and monitor 2.9 cm cystic foci in the right ovary -Will plan on outpatient pelvic ultrasound after discharge as this is not an acute issue History of bilateral PE -Continue home rivaroxaban History of polycythemia vera -JAK2 positive -Continue hydroxyurea -Patient follows with oncology -Also requires as needed phlebotomies Pulmonary hypertension -Last echocardiogram showed a right ventricular systolic pressure of 62 mmHg -No acute issues FEN patient's not on any diuresis at baseline -Outpatient follow-up History of BPPV -Continue as needed meclizine Essential hypertension -Continue home amlodipine -If creatinine remains stable will restart lisinopril tomorrow -Continue as needed IV hydralazine for systolic blood pressure greater than 160 History of TIA -Continue full anticoagulation -Suspect related to polycythemia vera Osteoarthritis -Previous bilateral knee replacements -History of right total hip replacement -As needed Tylenol DVT prophylaxis -Continue rivaroxaban CODE STATUS
[2024-05-29 07:59] LABS: Magnesium 2.4 mg/dL (1.5-2.2); Vitamin B12 668 pg/mL (180-914)
[2024-05-29 08:01] LABS: FOLATES,SERUM (FOLIC ACID) 7.78 ng/mL (4.60-34.80)
[2024-05-29 08:04] LABS: ALB/GLOB Ratio 1.2 RATIO (0.9-2.4); AST(SGOT) 25 U/L (<=31); Alanine Aminotransfer ALT/SGPT 16 U/L (<=34); Albumin, Serum 4.6 g/dL (3.4-4.8); Alkaline Phosphatase 112 U/L (35-104); Anion Gap 15 (5-15); BUN 26 mg/dL (4-19); BUN/Creat Ratio 26.9 RATIO (10-20); Calcium,Total 9.4 mg/dL (7.6-11.0); Carbon Dioxide 19.9 mmol/L (21.0-32.0); Chloride 102 mmol/L (98-108); Creatinine, Serum 0.97 mg/dL (0.70-1.20); EST Glomerular Filtration Rate 59 (>60); Globulin 3.7 g/dL (2.2-4.2); Glucose 276 mg/dL (70-99); Potassium 4.1 mmol/L (3.3-5.1); Protein, Total 8.3 g/dL (5.9-8.4); Sodium Level 138 mmol/L (133-145); Total Bilirubin 0.33 mg/dL (0.00-1.30)
[2024-05-29 08:45] LABS: Anisocytosis 1+; Platelet Estimate MOD INC (ADEQ)
[2024-05-29 08:46] LABS: Polychromasia 1+
[2024-05-29] MEDS: amLODIPine 5 MG Tablet PO (09:30)
[2024-05-29] MEDS: Hydroxyurea 500 MG Capsule 1000 MG PO (09:30)
[2024-05-29] MEDS: Cyanocobalamin 500 MCG Tablet 1000 MCG PO (09:30)
--- NOTE | 2024-05-29 09:40 | CASEMGMT ---
RN CM Face to Face with patient for initial transition planning/care coordination assessment. RN CM introduced self and role at [facility]. Patient lying in bed, alert and oriented. Patient willing to participate in assessment and is able to answer all questions appropriately. Care providers, pharmacy, and demographics verified. Strata: 2 PCP: Thanh Specialists: Shelly, onologist; Sophie, straw hat brim raiser operator; Preferred Pharmacy: [facility] Pres[facility] Benefit: yes Living Will/HPOA: yes daughter Geetha Louise LNOK: daughter Living Arrangements: Patient lives with daughter and SHAWANDA in a single story home, 2 steps and railing to enter the home. Transportation: self, daughter DME/HHC: Patient denies DME in the home. No previous HHC or SNF. Patient wishes to discharge home, denies need for home health at this time. Patient states she has no further needs or concerns at this time. CM to follow for discharge planning needs that may arise. Disposition Plan: Patient to discharge home with family support and follow-up plans in place. Will monitor progress with therapy. Tanja DURHAM, RN, CM
[2024-05-29] MEDS: Acetaminophen 325 MG Tablet 650 MG PO (09:44)
[2024-05-29] MEDS: 0.9% Saline Lock 10 ML Syringe IV ×2 (12:42→21:26)
[2024-05-29] MEDS: Morphine 2 MG/ML Syringe IV ×2 (12:42→21:21)
--- NOTE | 2024-05-29 14:19 | CHAPLAIN ---
Type of Pastoral Visit _x__ Initial Visit ___ Follow-up Visit ___ On-call Visit ___ General Patient Visit ___ Spiritual Assessment ___ Family Conference ___ Bereavement ___ Rapid Response ___ Code Blue ___ Other (describe below) Pastoral Care Referral From _x__ Patient ___ Family ___ Nurse ___ Physician ___ Organ Assembler ___ Door Machine Operator ___ Other (describe below) Sacrament/Intervention _x__ Active listening ___ Anointing ___ Zoroastrian ___ Bereavement ___ Communion ___ Martha exploration ___ ___ Life review _x__ Prayer ___ Reconciliation ___ Sacrament of Sick _x__ Supportive presence ___ Wedding ___ Other (describe below) Pastoral Comments patient is awake but quietly resting in a darkened room; pt is alone in the room and admits that she is not feeling well and is trying to get some rest; pt does welcome the presence of the public health training assistant and explains her situation briefly; pt states that she would like a prayer most of all for today; presence and prayer given
[2024-05-29] MEDS: Rivaroxaban 20 MG Tablet PO (17:08)
[2024-05-30 03:21] VITALS: BP 150/68; PULSE 94; RESP 18; TEMP 36.6; O2SAT 96
[2024-05-30] MEDS: Piperacil/Tazobactam 3.375 GM in 0.9% Normal Saline (50mL MB+) 50 ML IV ×3 (05:08→21:07)
[2024-05-30 05:22] VITALS: BMI 29.8
[2024-05-30 06:35] LABS: Absolute Lymphocyte Count 0.49 X10^3/uL (0.83-4.51); Basophil# 0.09 X10^3/uL; Basophil% 0.5 % (0-1); Eosinophils% 0.6 % (0-5); Hematocrit 37.2 % (37-47); Hemoglobin 11.1 g/dL (12.0-15.0); Lymphocyte # 0.49 X10^3/ul (0.83-4.51); Lymphocyte % 2.8 % (19-41); Mean Corp Hgb Conc 29.8 g/dL (32-36); Mean Corpuscular Volume 103.9 fL (81-99); Mean Platelet Vol. 11.6 fl (6.2-12.0); Monocyte# 0.44 X10^3/uL; Monocyte% 2.5 % (0-10); NRBC Flagged by Analyzer 0.9 % (0-5); Neutrophil # 15.95 X10^3/uL (2.7-7.7); Neutrophil % 91.2 % (47-70); POSITIVE DIFFERENTIAL YES; POSITIVE MORPHOLOGY YES; Platelet Count 403 K/mm3 (150-450); RBC Distribution Width SD 81.7 fl (35.1-43.9); Red Blood Count 3.58 M/mm3 (4.2-5.4); White Blood Count 17.5 K/mm3 (4.4-11.0)
[2024-05-30 06:40] LABS: Differential Indicated SCAN CRITERIA MET
[2024-05-30 07:20] LABS: Anisocytosis 2+
[2024-05-30] MEDS: Acetaminophen 325 MG Tablet 650 MG PO (07:58)
[2024-05-30 08:01] VITALS: BP 150/69; PULSE 95; RESP 18; TEMP 36.7; O2SAT 95
[2024-05-30 08:02] LABS: Anion Gap 13 (5-15); BUN 12 mg/dL (4-19); BUN/Creat Ratio 17.3 RATIO (10-20); Calcium,Total 8.9 mg/dL (7.6-11.0); Carbon Dioxide 19.9 mmol/L (21.0-32.0); Chloride 106 mmol/L (98-108); Creatinine, Serum 0.66 mg/dL (0.70-1.20); EST Glomerular Filtration Rate 88 (>60); Estimated Creatinine Clearance 59.04 ml/min (50-250); Glucose 134 mg/dL (70-99); Potassium 4.1 mmol/L (3.3-5.1); Sodium Level 138 mmol/L (133-145)
[2024-05-30] MEDS: amLODIPine 5 MG Tablet PO (08:06)
[2024-05-30] MEDS: Hydroxyurea 500 MG Capsule 1000 MG PO (08:06)
[2024-05-30] MEDS: Cyanocobalamin 500 MCG Tablet 1000 MCG PO (08:06)
[2024-05-30] MEDS: Pantoprazole Sodium 40 MG in 0.9% Normal Saline (100mL MB+) 100 ML 330 MG IV (08:06)
--- NOTE | 2024-05-30 09:05 | PCM.PN.HOSP ---
Reason for Visit Reason for Visit: Abdominal pain/nausea/vomiting Subjective Subjective Patient states she is feeling better. Her daughter is at the bedside and feels that she is more of herself today. Still some crampy abdominal pain in the mid abdominal region. No diarrhea, nausea or vomiting. Is wanting to try clear liquids today. Asking if she may be able to go home tomorrow. Objective Data Objective Data Vital Signs: Vital Signs Temp Pulse Resp BP Pulse Ox O2 Del Method O2 Flow Rate 98.0 F 95 18 150/69 H 95 Room Air 2 05/30/24 08:01 05/30/24 08:01 05/30/24 08:01 05/30/24 08:01 05/30/24 08:01 05/30/24 08:01 05/29/24 07:55 Oxygen Flow Rate (L/min) 2 Oxygen Delivery Method Room Air Weight: 81.2 kg Body Mass Index (BMI) 29.8 Intake & Output: Intake and Output for Last 24 Hours 05/28/24 05/29/24 05/30/24 23:59 23:59 23:59 Intake Total 2210 / 2210 1160 / 1160 Output Total 1770 / 1770 700 / 700 Balance 440 / 440 460 / 460 Lab / Micro Data 05/30/24 05:36 05/30/24 05:36 Labs: Laboratory Results - last 24 hr 05/30/24 05:36: WBC 17.5 H, RBC 3.58 L, Hgb 11.1 L, Hct 37.2, MCV 103.9 H, MCH 31.0, MCHC 29.8 L, RDW Std Deviation 81.7 H, RDW Coeff of Iveth 22.0 H, Plt Count 403, MPV 11.6, Immature Gran % (Auto) 2.400 H, Neut % (Auto) 91.2 H, Lymph % (Auto) 2.8 L, [place] % (Auto) 2.5, Eos % (Auto) 0.6, Baso % (Auto) 0.5, Absolute Neuts (auto) 16.0 H, Absolute Lymphs (auto) 0.49 L, Nucleated RBC % 0.9, Anisocytosis 2+, Sodium 138, Potassium 4.1, Chloride 106, Carbon Dioxide 19.9 L, Anion Gap 13, BUN 12, Creatinine 0.66 L, Estim Creat Clear Calc 59.04, Est GFR (MDRD) Non-Af 88, BUN/Creatinine Ratio 17.3, Glucose 134 H, Calcium 8.9 Physical Exam Const alert, oriented x3, no apparent distress, healthy appearing and well nourished Constitutional Narrative: Elderly, white female, lying in bed, daughter sitting in a chair at the bedside, appears comfortable, nontoxic, appears if she is feeling much better today. General Appearance: cooperative HEENT normocephalic, head/scalp atraumatic and moist oral mucous membranes Resp normal respiratory effort, no retractions, no use of accessory muscles and clear to auscultation bilaterally Cardio regular rate, regular rhythm, S1 normal heart sound, S2 normal heart sound, no murmurs, no rub, no gallops and no clicks GI GI Narrative: Mild mid abdominal tenderness, bowel sounds are mildly hyperactive, no distention, abdomen is soft Extremity no clubbing, cyanosis or edema Extremity Narrative: Pedal and radial pulses are 2+ Neuro oriented x3, moves all extremities and no focal motor deficits Speech: speech normal Psych affect normal Psych Narrative: Very pleasant, appears if she is feeling much better, interacts appropriately, eye contact is good Assessment & Plan Assessment/Plan (1) SARA (acute kidney injury): (2) Diarrhea: QUALIFIERS: Diarrhea type: presumed infectious Qualified Code(s): R19.7 - Diarrhea, unspecified (3) Nausea & vomiting: QUALIFIERS: Vomiting type: unspecified Qualified Code(s): R11.2 - Nausea with vomiting, unspecified (4) Ovarian cyst, right: (5) Acute dehydration: (6) Abdominal pain: (7) Colitis: PLAN: Plan Acute colitis -Does not appear consistent with diverticular so likely inflammatory versus infectious -Clinically is improving -Continue Zosyn -Patient has not produced stools to send for culture -As needed antiemetics -As needed pain medications -Discontinue IV fluids -Trial clear liquid diet for lunch and transition to full liquids at dinner if tolerates -Discussed with nursing Leukocytosis -White count is 17.5 which is slowly trending down -Clinically better SARA -Resolved -Baseline creatinine is consistent with CKD stage II having a creatinine of 0.8-1.0 -Serum creatinine on admission was 1.33 -Serum creatinine is normalized and is currently 0.66 Extravasation of IV contrast in the right arm -Continue supportive care and monitor -Remained stable 2.9 cm cystic foci in the right ovary -Will plan on outpatient pelvic ultrasound after discharge as this is not an acute issue History of bilateral PE -Continue home rivaroxaban History of polycythemia vera -JAK2 positive -Continue hydroxyurea -Patient follows with oncology -Also requires as needed phlebotomies Pulmonary hypertension -Last echocardiogram showed a right ventricular systolic pressure of 62 mmHg -No acute issues -patient's not on any diuresis at baseline -Outpatient follow-up History of BPPV -Continue as needed meclizine Essential hypertension -Continue home amlodipine -Restart home lisinopril -Continue as needed IV hydralazine for systolic blood pressure greater than 160 History of TIA -Continue full anticoagulation -Suspect related to polycythemia vera Osteoarthritis -Previous bilateral knee replacements -History of right total hip replacement -As needed Tylenol DVT prophylaxis -Continue rivaroxaban CODE STATUS -Full code Charges/Coding Visit Charges Inpatient E&M: 09877 Subs Hosp L2
[2024-05-30 15:04] VITALS: BP 144/66; PULSE 89; RESP 18; TEMP 36.4; O2SAT 95
[2024-05-30] MEDS: Lisinopril 5 MG Tablet PO (15:06)
[2024-05-30] MEDS: Rivaroxaban 20 MG Tablet PO (16:35)
[2024-05-30 21:00] VITALS: BP 153/61; PULSE 94; RESP 18; TEMP 36.9; O2SAT 95
[2024-05-31] MEDS: Piperacil/Tazobactam 3.375 GM in 0.9% Normal Saline (50mL MB+) 50 ML IV (05:25)
[2024-05-31 07:10] LABS: Absolute Lymphocyte Count 0.79 X10^3/uL (0.83-4.51); Absolute Neutrophil Count 15.5 X10^3/uL (2.0-7.7); Basophil# 0.09 X10^3/uL; Basophil% 0.5 % (0-1); Eosinophil# 0.16 X10^3/uL; Eosinophils% 0.9 % (0-5); Hematocrit 37.5 % (37-47); Hemoglobin 11.5 g/dL (12.0-15.0); Lymphocyte # 0.79 X10^3/ul (0.83-4.51); Lymphocyte % 4.6 % (19-41); Mean Corp Hgb Conc 30.7 g/dL (32-36); Mean Corpuscular Hgb 31.1 pg (27.0-32.0); Mean Corpuscular Volume 101.4 fL (81-99); Mean Platelet Vol. 11.6 fl (6.2-12.0); Monocyte# 0.45 X10^3/uL; Monocyte% 2.6 % (0-10); NRBC Flagged by Analyzer 1.2 % (0-5); Neutrophil # 15.51 X10^3/uL (2.7-7.7); Neutrophil % 90.2 % (47-70); POSITIVE MORPHOLOGY YES; Platelet Count 381 K/mm3 (150-450); RBC Distribution Width CV 21.2 % (11.6-14.6); RBC Distribution Width SD 76.8 fl (35.1-43.9); White Blood Count 17.2 K/mm3 (4.4-11.0)
[2024-05-31 07:14] LABS: Differential Indicated SCAN CRITERIA MET
[2024-05-31 08:00] LABS: Anion Gap 14 (5-15); BUN 9 mg/dL (4-19); Calcium,Total 9.1 mg/dL (7.6-11.0); Carbon Dioxide 20.5 mmol/L (21.0-32.0); Chloride 97 mmol/L (98-108); Creatinine, Serum 0.61 mg/dL (0.70-1.20); EST Glomerular Filtration Rate 90 (>60); Estimated Creatinine Clearance 59.04 ml/min (50-250); Glucose 126 mg/dL (70-99); Potassium 3.8 mmol/L (3.3-5.1); Sodium Level 131 mmol/L (133-145)
[2024-05-31 08:19] LABS: Atypical Lymphocyte 1+ %
[2024-05-31 09:05] VITALS: BP 135/70; PULSE 88; RESP 18; TEMP 36.9; O2SAT 94
[2024-05-31] MEDS: Acetaminophen 325 MG Tablet 650 MG PO (09:06)
[2024-05-31] MEDS: Cyanocobalamin 500 MCG Tablet 1000 MCG PO (09:07)
[2024-05-31] MEDS: Lisinopril 5 MG Tablet PO (09:07)
[2024-05-31] MEDS: amLODIPine 5 MG Tablet PO (09:07)
[2024-05-31] MEDS: Pantoprazole Sodium 40 MG in 0.9% Normal Saline (100mL MB+) 100 ML 330 MG IV (10:30)
[2024-05-31 11:03] VITALS: O2SAT 94
--- NOTE | 2024-05-31 13:28 | PCM.DC.SUM ---
Providers Date of Admission: 05/29/24 Date of Discharge: 05/31/24 Primary Care Physician: Dr. Tor Law MD Reason For Visit: COLITIS, LEUKOCYTOSIS, N/V/D & NONBLOODY DIARRHEA Diagnosis Discharge Diagnosis (1) SARA (acute kidney injury): Status: Acute Code(s): N17.9 - Acute kidney failure, unspecified (2) Diarrhea: Status: Acute Code(s): R19.7 - Diarrhea, unspecified Qualifiers: Diarrhea type: presumed infectious Qualified Code(s): R19.7 - Diarrhea, unspecified (3) Nausea & vomiting: Status: Acute Code(s): R11.2 - Nausea with vomiting, unspecified Qualifiers: Vomiting type: unspecified Qualified Code(s): R11.2 - Nausea with vomiting, unspecified (4) Ovarian cyst, right: Status: Acute Code(s): N83.201 - Unspecified ovarian cyst, right side (5) Acute dehydration: Status: Acute Code(s): E86.0 - Dehydration (6) Abdominal pain: Status: Acute Code(s): R10.9 - Unspecified abdominal pain (7) Colitis: Status: Acute Code(s): K52.9 - Noninfective gastroenteritis and colitis, unspecified Medications at Discharge Home Medications rivaroxaban 20 mg tablet (Xarelto) 20 mg PO DAILY blood thinner #30 tabs 04/16/19 Handicap Placard #1 ea 07/05/20 acetaminophen 500 mg tablet 1,000 mg PO BID back pain 09/08/21 mecobalamin (vitamin B12) 1,000 mcg disintegrating tablet,sublingual 1,000 mcg sublingual DAILY supplement #30 tabs 09/09/21 meclizine 25 mg tablet 25 mg PO BID PRN dizziness #60 tabs 11/20/22 amlodipine 5 mg tablet 5 mg PO DAILY htn #30 tabs 12/30/23 lisinopril 5 mg tablet 5 mg PO QDAY htn #90 tabs 02/21/24 hydroxyurea 500 mg capsule 1,000 mg (2 x 500 mg) PO DAILY cancer 90 days #120 caps 04/08/24 amoxicillin 875 mg-potassium clavulanate 125 mg tablet 1 tab PO BID #16 tabs 05/31/24 Hospital Course Operations None Procedures - Summary of Care Provided Minutes Spent on Discharge: 38 Hospital Course: Patient is an 78-year-old white female who presented to the emergency department at [facility] early in the morning of 05/29/2024 with chief complaint of nausea/abdominal pain/diarrhea. Patient was with friends and around 6 PM she started having some epigastric pain with associated nausea, vomiting, and acute diarrhea. She was feeling fine earlier in the day. Patient does have a history of polycythemia vera and is on chronic anticoagulation with rivaroxaban as well as hydroxyurea. She also requires intermittent phlebotomies. Emesis was nonbloody and [id number] appearing and seem to be bilious in nature and diarrhea was nonbloody or melanotic. She had no fever or chills. Vital signs on presentation showed a temperature of 96.2, heart rate was 90, respiratory rate 16, blood pressure was 172/75 and pulse ox was 98% on room air. CBC on presentation showed a white count of 20,000 with a chronic stable anemia having a hemoglobin of 11.4, normal platelet count and a left shift showing a 73% neutrophilia. Chemistry panel showed a serum bicarb of 15.5 with an anion gap of 22. BUN was 38 and serum creatinine was 1.33 consistent with dehydration entheses baseline creatinine appears to be between 0.8 and 1.0) serum glucose was elevated at 218 diabetic at baseline. Lipase was within normal limits. TSH is 1.08. CT of the abdomen pelvis was performed and showed mild diffuse pericolonic stranding along the sigmoid colon that is consistent with possible colitis with diverticulosis but no appearing inflamed diverticulum and liquid intraluminal material in the lower sigmoid colon suggestive of diarrhea. A 2.9 cm cystic foci was noted in the right ovary and outpatient pelvic ultrasound was recommended. Occult stool was negative. Stool studies were ordered but she has not yet had another bowel movement so there have not been performed. She was given aggressive high IV fluids, IV antibiotics with Zosyn and admitted to the hospital for ongoing care. Patient did not have any more diarrhea so she was not able to produce stool for stool studies. With time her nausea and vomiting got better and her diarrhea remains resolved. She was maintained on Zosyn during her hospital stay. Her white count remains slightly elevated but clinically she improved significantly. We slowly advance her diet from clears to full dose to regular bland diet and she did well with this. Etiology of colitis is not clear however I suspect ischemic versus infectious. She will complete antibiotic course with Augmentin for another 8 days at the time of discharge. Prescription sent to local pharmacy. I have asked that she follow-up with her primary care physician in the next week for hospital follow-up and that she obtain a CBC and a BMP ordered by them in the next week just to reassess her electrolytes and her white count. She was able to be discharged home in stable condition on 05/31/2024. Discharge diagnoses: Acute colitis SARA-resolved Leukocytosis-trending down Extravasation of IV contrast-resolved 2.9 cystic foci in the right ovary-needs follow-up ultrasound in the outpatient History of bilateral PE History of polycythemia vera Pulmonary hypertension BPPV Essential hypertension History of TIA Osteoarthritis Physical Exam Narrative Patient states she is feeling very well. Would like to go home. Denies any nausea, vomiting, abdominal pain. States her diarrhea has remained resolved. Eating without any difficulty Const alert, oriented x3, no apparent distress, healthy appearing and well nourished Constitutional Narrative: Elderly, white female, lying in bed, napping but awakens easily, appears comfortable, nontoxic General Appearance: cooperative, comfortable, well kempt and well developed Exam Limitations: no limitations Nutritional Appearance: overweight HEENT normocephalic, head/scalp atraumatic and moist oral mucous membranes HEENT Narrative: Mallampati 2, no thrush Eyes EOMs intact bilaterally and conjunctivae normal Eyes Narrative: No scleral icterus Neck supple Neck Narrative: Trachea midline Resp normal respiratory effort, no retractions, no use of accessory muscles and clear to auscultation bilaterally Cardio regular rate, regular rhythm, S1 normal heart sound, S2 normal heart sound, no murmurs, no rub, no gallops and no clicks GI normal to inspection, nondistended, normoactive bowel sounds, soft to palpation and non-tender Extremity no clubbing, cyanosis or edema Extremity Narrative: Pedal and radial pulses are 2+ Skin no rashes or lesions noted, no wounds, skin turgor normal, no jaundice, no petechiae and no mottling Neuro oriented x3, moves all extremities and no focal motor deficits Speech: speech normal Psych affect normal Psych Narrative: Very pleasant, anxious to go home Weight / BMI Weight Weight: 81.2 kg Body Mass Index (BMI) 29.8 ABG / Lab / Microbiology Data 05/31/24 04:40 05/31/24 04:40 Laboratory: Laboratory Results - last 24 hr 05/31/24 04:40: WBC 17.2 H, RBC 3.70 L, Hgb 11.5 L, Hct 37.5, MCV 101.4 H, MCH 31.1, MCHC 30.7 L, RDW Std Deviation 76.8 H, RDW Coeff of Iveth 21.2 H, Plt Count 381, MPV 11.6, Immature Gran % (Auto) 1.200 H, Neut % (Auto) 90.2 H, Lymph % (Auto) 4.6 L, Rhea % (Auto) 2.6, Eos % (Auto) 0.9, Baso % (Auto) 0.5, Absolute Neuts (auto) 15.5 H, Absolute Lymphs (auto) 0.79 L, Nucleated RBC % 1.2, Atypical Lymphocytes 1+, Sodium 131 L, Potassium 3.8, Chloride 97 L, Carbon Dioxide 20.5 L, Anion Gap 14, BUN 9, Creatinine 0.61 L, Estim Creat Clear Calc 59.04, Est GFR (MDRD) Non-Af 90, BUN/Creatinine Ratio 15.0, Glucose 126 H, Calcium 9.1 D/C Instructions Discharge Diet: [place] diet (Advance as able) Discharge Activity: Return to Normal Activity DC O2, CPAP, BIPAP Needs Home O2 Discharge instructions: No Meaningful Use Info Meaningful Use Meaningful Use Diagnoses (Choose all that apply): None applicable Ischemic Stroke Statin Dosing Therapy Reference: STATIN DOSE THERAPY REFERENCE: * Patients > 75 years receive moderate or high dose statin therapy. * Patients 75 years or YOUNGER should receive HIGH intensity statin dose unless contraindicated. You will be required to document reason for non-treatment if statin daily dose does not meet guidelines. HIGH DOSE STATIN THERAPY DAILY Atorvastatin > than or = to 40 mg Rosuvastatin > than or = to 20 mg Amlodipine + Atorvastatin > than or = to 2.5/40 mg Ezetimibe + Simvastatin 10/80 mg Simvastatin 80mg Discharge Plan Admission Admit Date/Time: 05/29/24 04:35 Primary Reason for Your Visit: Abdominal pain/nausea/vomiting Attending Provider: Vanessa Bennett Primary Care Provider: Tor Law [employer] Providers: Esteban Cooper Instructions Additional Instructions / Restrictions: 1. Please ask your primary care physician that a follow-up BMP and CBC to be done in the next week. Discharge Orders/Prescriptions Prescriptions: New amoxicillin-pot clavulanate 875-125 mg tablet 1 tab PO BID Qty: 16 0RF Continued (DME) Handicap Placard See Rx Instructions .Route .MEDSUPPLY Qty: 1 0RF Rx Instructions: expires 07/2025 meclizine 25 mg tablet 25 mg PO BID PRN (Reason: dizziness) Qty: 60 5RF acetaminophen 500 mg Tablet 1,000 mg PO BID mecobalamin (vitamin B12) 1,000 mcg tablet,disintegrating 1,000 mcg sublingual DAILY Qty: 30 0RF Rx Instructions: place tablet under tongue and allow to dissolve for at least30 secs before swallowing Xarelto 20 mg tablet 20 mg PO DAILY Qty: 30 6RF Rx Instructions: must administer with evening meal amlodipine 5 mg tablet 5 mg PO DAILY Qty: 30 12RF lisinopril 5 mg tablet 5 mg PO QDAY Qty: 90 3RF hydroxyurea 500 mg capsule 1,000 mg PO DAILY 90 Days Qty: 120 0RF Rx Instructions: Daily except Sundays and Wednesdays, adjust dose as instructed Referrals / Follow Up: Tor Law Chi, MD [Primary Care Provider] - Within 1 Week Disposition Disposition (needs filled in before D/C Order can be placed): Home, Self Care Charges/Coding Visit Charges Inpatient E&M: 42883 Disch Hosp >30min
== END 2024-05-31 14:13 | disposition home or self-care (01) | DRG 683 ==
LOC: ED 05-29 03:17 → PCU 05-29 04:55
PROVIDERS: Admitting Provider Internal Medicine; Emergency Provider Emergency Medicine; PCP Family Medicine Geriatric Medicine; Visit Provider Internal Medicine
DX: I12.9 Hypertensive chronic kidney disease with stage 1 through stage 4 chronic kidney disease, or unspecified chronic kidney disease (principal); N17.9 Acute kidney failure, unspecified; T80.818A Extravasation of other vesicant agent, initial encounter; I27.20 Pulmonary hypertension, unspecified; K52.9 Noninfective gastroenteritis and colitis, unspecified; N18.2 Chronic kidney disease, stage 2 (mild); E78.5 Hyperlipidemia, unspecified; R11.2 Nausea with vomiting, unspecified; E86.0 Dehydration; H81.10 Benign paroxysmal vertigo, unspecified ear; M17.0 Bilateral primary osteoarthritis of knee; A08.4 Viral intestinal infection, unspecified; Z79.01 Long term (current) use of anticoagulants; Z79.899 Other long term (current) drug therapy; Z79.1 Long term (current) use of non-steroidal anti-inflammatories (NSAID); N83.201 Unspecified ovarian cyst, right side; Y69 Unspecified misadventure during surgical and medical care; Z86.711 Personal history of pulmonary embolism; Z86.2 Personal history of diseases of the blood and blood-forming organs and certain disorders involving the immune mechanism; Z86.73 Personal history of transient ischemic attack (TIA), and cerebral infarction without residual deficits; Z96.653 Presence of artificial knee joint, bilateral
CPT/HCPCS: 36415; 73060; 74177; 80048; 80053; 82565; 82607; 82746; 83690; 83735; 84100; 84443; 84520; 85025; 93005; 94668; 99285; Q9967; A4216; J2405

== ENCOUNTER → 2024-08-12 | Outpatient (CLI) | payer MEDICARE, BC, SELFPAY ==
[2024-08-12 13:02] LABS: Absolute Lymphocyte Count 1.92 X10^3/uL (0.83-4.51); Absolute Neutrophil Count 6.1 X10^3/uL (2.0-7.7); Basophil# 0.08 X10^3/uL; Basophil% 0.9 % (0-1); Differential Indicated SCAN CRITERIA MET; Eosinophil# 0.42 X10^3/uL; Eosinophils% 4.6 % (0-5); Hematocrit 35.3 % (37-47); Hemoglobin 10.6 g/dL (12.0-15.0); Lymphocyte # 1.92 X10^3/ul (0.83-4.51); Lymphocyte % 21.2 % (19-41); Mean Corpuscular Hgb 31.1 pg (27.0-32.0); Mean Corpuscular Volume 103.5 fL (81-99); Mean Platelet Vol. 11.6 fl (6.2-12.0); Monocyte# 0.35 X10^3/uL; Monocyte% 3.9 % (0-10); NRBC Flagged by Analyzer 0.3 % (0-5); Neutrophil # 6.09 X10^3/uL (2.7-7.7); Neutrophil % 67.3 % (47-70); POSITIVE MORPHOLOGY YES; Platelet Count 373 K/mm3 (150-450); RBC Distribution Width CV 20.5 % (11.6-14.6); RBC Distribution Width SD 76.7 fl (35.1-43.9); Red Blood Count 3.41 M/mm3 (4.2-5.4); White Blood Count 9.1 K/mm3 (4.4-11.0)
[2024-08-12 14:02] LABS: Vitamin D,25 Hydroxy 31.4 ng/mL (30-100)
[2024-08-12 14:03] LABS: ALB/GLOB Ratio 1.2 RATIO (0.9-2.4); AST(SGOT) 20 U/L (<=31); Alanine Aminotransfer ALT/SGPT 9 U/L (<=34); Albumin, Serum 4.1 g/dL (3.4-4.8); Alkaline Phosphatase 97 U/L (35-104); Anion Gap 12 (5-15); BUN 27 mg/dL (4-19); Calcium,Total 9.5 mg/dL (7.6-11.0); Carbon Dioxide 21.6 mmol/L (21.0-32.0); Chloride 103 mmol/L (98-108); Creatinine, Serum 0.88 mg/dL (0.70-1.20); EST Glomerular Filtration Rate 66 (>60); Globulin 3.5 g/dL (2.2-4.2); Glucose 96 mg/dL (70-99); Potassium 4.7 mmol/L (3.3-5.1); Protein, Total 7.7 g/dL (5.9-8.4); Sodium Level 137 mmol/L (133-145)
[2024-08-12 14:08] LABS: Anisocytosis 2+
[2024-08-12 15:34] LABS: Microalbumin,Random Urine < 12.0 mg/L (NO RANGE EST.); Microalbumin:Creatinine Ratio UNABLE TO CALCULATE mg/g CRE
== END | disposition home or self-care (01) ==
PROVIDERS: PCP Family Medicine Geriatric Medicine; Referring Provider Family Medicine Geriatric Medicine; Visit Provider Family Medicine Geriatric Medicine
DX: E11.65 Type 2 diabetes mellitus with hyperglycemia (principal); I10 Essential (primary) hypertension; E55.9 Vitamin D deficiency, unspecified
CPT/HCPCS: 36415; 80053; 82043; 82306; 82570; 84443; 85025

== ENCOUNTER → 2025-02-11 | Outpatient (CLI) | payer MEDICARE, BC, SELFPAY ==
[2025-02-11 12:03] LABS: Hematocrit 39.3 % (37-47); Hemoglobin 11.7 g/dL (12.0-15.0); Immature Granulocytes Count 0.200 X10^3/uL (0.0-0.0); Mean Corp Hgb Conc 29.8 g/dL (32-36); Mean Corpuscular Volume 101.0 fL (81-99); Mean Platelet Vol. 11.0 fl (6.2-12.0); NRBC Flagged by Analyzer 0.7 % (0-5); POSITIVE MORPHOLOGY YES; Platelet Count 381 K/mm3 (150-450); RBC Distribution Width CV 20.7 % (11.6-14.6); RBC Distribution Width SD 75.7 fl (35.1-43.9); Red Blood Count 3.89 M/mm3 (4.2-5.4); White Blood Count 13.4 K/mm3 (4.4-11.0)
[2025-02-11 12:08] LABS: Differential Indicated SCAN CRITERIA MET
[2025-02-11 12:37] LABS: Anisocytosis 2+; Differential Comment SCANNED; Polychromasia RARE
[2025-02-11 12:38] LABS: Macrocytosis 1+; Microcytosis 1+
[2025-02-11 12:55] LABS: AST(SGOT) 23 U/L (<=31); Alanine Aminotransfer ALT/SGPT 12 U/L (<=34); Albumin, Serum 4.2 g/dL (3.4-4.8); Alkaline Phosphatase 138 U/L (35-104); Anion Gap 14 (5-15); BUN 12 mg/dL (4-19); BUN/Creat Ratio 15.8 RATIO (10-20); Calcium,Total 9.6 mg/dL (7.6-11.0); Carbon Dioxide 24.0 mmol/L (21.0-32.0); Chloride 102 mmol/L (98-108); Globulin 3.4 g/dL (2.2-4.2); Glucose 84 mg/dL (70-99); Potassium 4.6 mmol/L (3.3-5.1)
[2025-02-11 12:58] LABS: Vitamin D,25 Hydroxy 23.7 ng/mL (30-100)
[2025-02-11 19:48] LABS: Xtra Tube Kwok EXTRA TUBE
== END | disposition home or self-care (01) ==
LOC: POLAB3 11:47
PROVIDERS: PCP Family Medicine Geriatric Medicine; Visit Provider Family Medicine Geriatric Medicine
DX: E55.9 Vitamin D deficiency, unspecified (principal); I10 Essential (primary) hypertension
CPT/HCPCS: 36415; 80053; 82306; 84443; 85025